=== PATIENT | female | born 1975 | race Caucasian/White ===

== ENCOUNTER → 2018-03-24 15:04 | Outpatient (CLI) | payer OTHER, SELFPAY ==
--- NOTE | 2018-03-24 15:05 | DI.RAD.S_ITS ---
PROCEDURE: XR FOOT LT MIN 3V INDICATIONS: L foot injury TECHNIQUE: 3 views of the foot were acquired. COMPARISON: [facility], , FOOT 2V RIGHT, 02/17/2012, 15:44. FINDINGS: Bones: Minimally displaced mid/distal fifth metatarsal fracture. Soft tissues: No tibiotalar joint effusion. Achilles tendon appears normal. IMPRESSION: Minimally displaced fifth metatarsal fracture. Dictated by: Chrissy Burr M.D. on 03/24/2018 at 15:28 Approved by: Chrissy Burr M.D. on 03/24/2018 at 15:31
== END ==
PROVIDERS: Family Provider Physician Assistant; PCP Physician Assistant; Visit Provider Physician Assistant
DX: S92.352A Displaced fracture of fifth metatarsal bone, left foot, initial encounter for closed fracture (principal)
CPT/HCPCS: 73630

== ENCOUNTER → 2018-07-22 06:57 | Outpatient (CLI) | payer OTHER, SELFPAY ==
[2018-07-22 07:35] LABS: Add Manual Diff / Slide Review NO; Basophils Percent Auto 0.6 % (0-2); Eosinophils Percent Auto 1.7 % (2-4); Hematocrit 38.4 % (36-46); Hemoglobin 13.2 g/dL (12.0-16.0); Mean Corpuscular HGB Conc 34.5 % (30-36); Mean Corpuscular Hemoglobin 31.1 PG (26-34); Mean Corpuscular Volume 90.2 fL (80-100); Monocytes Percent Auto 7.1 % (3-14); Neutrophils Absolute Auto 4100 /uL (3000-5900); Neutrophils Percent Auto 61.6 % (50-75); Platelet Count 330 X10^3/uL (150-400); Red Blood Cell Count 4.26 X10^6/uL (4.0-5.2); White Blood Cell Count 6.7 X10^3/uL (4.5-11.0)
[2018-07-22 07:38] LABS: Appearance Urine UA CLEAR; Bilirubin Urine UA NEGATIVE (NEGATIVE); Color Urine UA YELLOW; Glucose Urine UA NEGATIVE (Normal); Ketones Urine UA NEGATIVE (NEGATIVE); Leukocyte Esterase Urine UA NEGATIVE (NEGATIVE); Nitrite Urine UA NEGATIVE (Negative); Occult Blood Urine UA TRACE-LYSED (Negative); Protein Urine UA NEGATIVE (Negative); Specific Gravity Urine UA 1.015 (1.000-1.035); Urobilinogen Urine UA 0.2 E.U./dL (0.2)
[2018-07-22 07:47] LABS: Alanine Aminotransferase 25 IU/L (9-52); Albumin 4.5 g/dL (3.5-5.0); Albumin Globulin Ratio 1.5 (1.0-2.8); Alkaline Phosphatase 83 U/L (38-126); Aspartate Aminotransferase 24 IU/L (14-36); BUN Creatinine Ratio 22.5 (6-22); Bilirubin Total 0.3 mg/dL (0.2-1.3); Blood Urea Nitrogen 18 mg/dL (7-17); Calcium 9.6 mg/dL (8.4-10.2); Carbon Dioxide 26 mmol/L (22-32); Chloride 104 mmol/L (98-107); Cholesterol 284 mg/dL (140-199); Estimated Glomerular Filt Rate > 60.0 mL/min (>60); Glucose 90 mg/dL (70-100); HDL Cholesterol 58 mg/dL (40-60); HEMOLYSIS < 15 (0-50); LDL Cholesterol Calculated 197 mg/dL (<100); Potassium 4.4 mmol/L (3.4-5.1); Sodium 142 mmol/L (137-145); Total Protein 7.5 g/dL (6.3-8.2); Triglycerides 144 mg/dL (35-150)
[2018-07-22 08:14] LABS: Thyroid Stimulating Hormone 2.92 uIU/mL (0.47-4.68)
== END ==
PROVIDERS: PCP Family Medicine; Visit Provider Family Medicine
DX: Z13.220 Encounter for screening for lipoid disorders (principal); Z13.29 Encounter for screening for other suspected endocrine disorder; Z51.81 Encounter for therapeutic drug level monitoring
CPT/HCPCS: 36415; 80053; 80061; 81003; 84443; 85025

== ENCOUNTER → 2018-10-22 12:26 | Outpatient (CLI) | payer OTHER, SELFPAY ==
[2018-10-22 13:06] LABS: Influenza A and B by PCR Rapid Negative (Negative)
== END ==
PROVIDERS: PCP Family Medicine; Visit Provider Physician Assistant
DX: J11.1 Influenza due to unidentified influenza virus with other respiratory manifestations (principal)
CPT/HCPCS: 87400

== ENCOUNTER → 2018-12-17 06:55 | Outpatient (CLI) | payer OTHER, SELFPAY ==
[2018-12-17 09:20] LABS: Alanine Aminotransferase 31 IU/L (9-52); Albumin 4.3 g/dL (3.5-5.0); Albumin Globulin Ratio 1.5 (1.0-2.8); Alkaline Phosphatase 114 U/L (38-126); Aspartate Aminotransferase 26 IU/L (14-36); Bilirubin Total 0.5 mg/dL (0.2-1.3); Blood Urea Nitrogen 16 mg/dL (7-17); Calcium 9.8 mg/dL (8.4-10.2); Carbon Dioxide 28 mmol/L (22-32); Chloride 102 mmol/L (98-107); Cholesterol 202 mg/dL (140-199); Estimated Glomerular Filt Rate > 60.0 mL/min (>60); Globulin 2.9 g/dL (1.7-4.1); Glucose 94 mg/dL (70-100); HDL Cholesterol 71 mg/dL (40-60); HEMOLYSIS < 15 (0-50); LDL Cholesterol Calculated 97 mg/dL (<100); Sodium 139 mmol/L (137-145); Total Protein 7.2 g/dL (6.3-8.2); Triglycerides 171 mg/dL (35-150)
== END ==
PROVIDERS: PCP Family Medicine; Visit Provider Family Medicine
DX: E78.5 Hyperlipidemia, unspecified (principal)
CPT/HCPCS: 36415; 80053; 80061

== ENCOUNTER → 2019-05-07 16:15 | Outpatient (CLI) | payer OTHER, SELFPAY ==
--- NOTE | 2019-05-07 16:17 | DI.US.S_ITS ---
PROCEDURE: US PELVIC COMPLETE INDICATIONS: PELVIC PAIN TECHNIQUE: Real-time scanning was performed of the pelvic organs, with image documentation. Additional endovaginal scanning was necessary due to incomplete visualization of the adnexal and endometrial structures by transabdominal scanning. COMPARISON: [facility], , PELVIC COMPLETE, 12/14/2015, 8:35. FINDINGS: Transabdominal scanning: Limited scanning through the kidneys shows no hydronephrosis. No pathologic free abdominal or pelvic fluid. Endovaginal scanning: Uterus: Uterus is normal in size at 6.1 x 2.3 x 3.2 cm. The endometrium measures 2.6 mm in combined thickness. Ovaries: Ovaries are normal bilaterally measuring 2.0 x 0.7 x 1.7 cm on the right and 2.5 x 0.9 x 2.0 cm on the left. IMPRESSION: No source for pelvic pain identified sonographically. Dictated by: Kaitlin Bruce M.D. on 05/07/2019 at 17:17 Approved by: Chrissy Burr M.D. on 05/08/2019 at 10:51
== END ==
PROVIDERS: PCP Family Medicine; Visit Provider Family Medicine
DX: R10.2 Pelvic and perineal pain (principal); R10.32 Left lower quadrant pain
CPT/HCPCS: 76830; 76856

== ENCOUNTER → 2019-06-23 16:41 | Outpatient (CLI) | payer OTHER, SELFPAY ==
--- NOTE | 2019-06-23 16:44 | DI.MG.S_ITS ---
BILATERAL DIGITAL SCREENING MAMMOGRAM 3D/2D WITH CAD: 06/23/2019 CLINICAL: Baseline exam. Routine screening. Family history of breast cancer. No prior exams were available for comparison. The tissue of both breasts is heterogeneously dense. This may lower the sensitivity of mammography. Current study was also evaluated with a Computer Aided Detection (CAD) system. No significant masses, calcifications, or other findings are seen in either breast. IMPRESSION: NEGATIVE There is no mammographic evidence of malignancy. A 1 year screening mammogram is recommended. This exam was interpreted at Station ID: [id number]. NOTE: For mammograms, a report in lay terms will be sent to the patient. Approximately 15% of breast malignancies will not be visualized mammographically. In the management of a palpable breast mass, a negative mammogram must not discourage biopsy of a clinically suspicious lesion. Electronically Signed By: James gupta/demetrio:06/24/2019 07:08:40 letter sent: Normal Exam ACR BI-RADS Category 1: Negative [id number]
== END ==
PROVIDERS: Family Provider Family Medicine; PCP Family Medicine; Visit Provider Family Medicine
DX: Z12.31 Encounter for screening mammogram for malignant neoplasm of breast (principal); Z80.3 Family history of malignant neoplasm of breast
CPT/HCPCS: 77063; 77067

== ENCOUNTER → 2019-08-13 16:11 | Outpatient (CLI) | payer OTHER, SELFPAY ==
[2019-08-13 20:22] LABS: Influenza A - CEPHEID Flu A NEGATIVE (NEGATIVE); Influenza B - CEPHEID Flu B NEGATIVE (NEGATIVE)
== END ==
PROVIDERS: Family Provider Family Medicine; PCP Family Medicine; Visit Provider Family Medicine
DX: R68.89 Other general symptoms and signs (principal)
CPT/HCPCS: 87502

== ENCOUNTER → 2019-12-17 09:50 | Outpatient (CLI) | payer OTHER, SELFPAY ==
[2019-12-17 11:04] LABS: Influenza A - CEPHEID Flu A NEGATIVE (NEGATIVE); Influenza B - CEPHEID Flu B NEGATIVE (NEGATIVE)
[2019-12-19 16:07] LABS: COVID19 Sendout Not Detected (Not Detected)
== END ==
PROVIDERS: Family Provider Family Medicine; PCP Family Medicine; Visit Provider Family Medicine
DX: R50.9 Fever, unspecified (principal); R68.89 Other general symptoms and signs
CPT/HCPCS: 87502; 87635

== ENCOUNTER → 2020-02-25 06:58 | Outpatient (CLI) | payer OTHER, SELFPAY ==
[2020-02-25 08:28] LABS: Add Manual Diff / Slide Review NO; Basophils Absolute Auto 0 /uL (0-100); Basophils Percent Auto 0.7 % (0-2); Eosinophils Absolute Auto 100 /uL (0-450); Hematocrit 40.4 % (36-46); Hemoglobin 13.6 g/dL (12.0-16.0); Lymphocytes Absolute Auto 2400 /uL (1100-4500); Lymphocytes Percent Auto 42.1 % (25-40); Mean Corpuscular HGB Conc 33.8 % (30-36); Mean Corpuscular Hemoglobin 31.4 PG (26-34); Mean Corpuscular Volume 93.1 fL (80-100); Monocytes Absolute Auto 500 /uL (0-900); Monocytes Percent Auto 8.5 % (3-14); Neutrophils Absolute Auto 2600 /uL (1500-7000); Neutrophils Percent Auto 46.7 % (50-75); Platelet Count 346 X10^3/uL (150-400); Red Blood Cell Count 4.34 X10^6/uL (4.0-5.2); Red Cell Distribution Width 13.4 % (11.6-14.8); White Blood Cell Count 5.6 X10^3/uL (4.5-11.0)
[2020-02-25 09:28] LABS: Alanine Aminotransferase 22 IU/L (<35); Albumin 4.3 g/dL (3.5-5.0); Albumin Globulin Ratio 1.6 (1.0-2.8); Alkaline Phosphatase 112 U/L (38-126); Aspartate Aminotransferase 26 IU/L (14-36); BUN Creatinine Ratio 19.5 (6-22); Bilirubin Total 0.5 mg/dL (0.2-1.3); Blood Urea Nitrogen 15 mg/dL (7-17); Calcium 9.8 mg/dL (8.4-10.2); Carbon Dioxide 26 mmol/L (22-32); Chloride 105 mmol/L (98-107); Cholesterol 196 mg/dL (140-199); Estimated Glomerular Filt Rate > 60.0 mL/min (>60); Globulin 2.7 g/dL (1.7-4.1); Glucose 97 mg/dL (70-100); HDL Cholesterol 66 mg/dL (40-60); HEMOLYSIS < 15 (0-50); LDL Cholesterol Calculated 107 mg/dL (<100); Potassium 4.8 mmol/L (3.4-5.1); Sodium 138 mmol/L (137-145); Triglycerides 116 mg/dL (35-150)
[2020-02-25 09:53] LABS: Thyroid Stimulating Hormone 2.17 uIU/mL (0.47-4.68)
== END ==
PROVIDERS: Family Medicine; Family Provider Family Medicine; PCP Family Medicine; Referring Provider Family Medicine; Visit Provider Family Medicine
DX: E78.5 Hyperlipidemia, unspecified (principal)
CPT/HCPCS: 36415; 80053; 80061; 84443; 85025

== ENCOUNTER → 2020-07-06 14:19 | Outpatient (CLI) | payer OTHER, SELFPAY ==
[2020-07-06 14:41] LABS: COVID19 -Nasal RAPID Negative (Negative)
== END ==
PROVIDERS: Family Provider Family Medicine; PCP Family Medicine; Visit Provider Student in an Organized Health Care Education/Training Program
DX: Z11.59 Encounter for screening for other viral diseases (principal)
CPT/HCPCS: 87635

== ENCOUNTER → 2020-07-13 13:29 | Outpatient (CLI) | payer OTHER, SELFPAY ==
[2020-07-13 14:21] LABS: COVID19 -Nasal RAPID Negative (Negative)
== END ==
PROVIDERS: Family Provider Family Medicine; PCP Family Medicine; Visit Provider Physician Assistant
DX: Z03.818 Encounter for observation for suspected exposure to other biological agents ruled out (principal)
CPT/HCPCS: 87635

== ENCOUNTER → 2020-11-03 08:03 | Outpatient (CLI) | payer OTHER, SELFPAY ==
--- NOTE | 2020-11-03 08:04 | DI.RAD.S_ITS ---
PROCEDURE: XR LUMBAR SPINE 2-3V INDICATIONS: BACK PAIN TECHNIQUE: 3 views of the lumbar spine were acquired. COMPARISON: [facility], CT, ABDOMEN/PELVIS WITH CONTRAST, 05/23/2017, 2:13. [facility], CT, L-SPINE WITHOUT CONTRAST, 08/25/2016, 13:34. CT, ABDOMEN/PELVIS WITH CONTRAST, 04/09/2016, 14:47. [facility], CR, L-SPINE MINIMUM 4 VIEWS, 12/14/2015, 8:52. FINDINGS: Bones: 5 [id number] vertebrae are present. Mild dextroscoliosis centered at the L3 level. Trace multilevel retrolisthesis. Multilevel disc degeneration, severe at the L5-S1 level. Moderate L4-L5 and L5-S1 facet joint arthropathy. No vertebral body compression fractures. No suspicious bony lesions. Soft tissues: Overlying bowel gas pattern is normal. No suspicious soft tissue calcifications. Right upper quadrant calcifications present. IMPRESSION: 1. Multilevel spondylosis similar to prior examination, most notably with severe disc degeneration at the L5-S1 level. 2. Right upper quadrant calcifications which could be related to gallstones. If indicated, abdominal ultrasound could be performed. Dictated by: Home [facility] Interpreted: Cody Perkins MD on 11/03/2020 at 8:31 Approved by: Cody Perkins M.D. on 11/03/2020 at 17:38
--- NOTE | 2020-11-03 08:04 | DI.MG.S_ITS ---
BILATERAL DIGITAL SCREENING MAMMOGRAM 3D/2D WITH CAD: 11/03/2020 CLINICAL: Routine screening. Family history of breast cancer. Comparison is made to exam dated: 06/23/2019 [facility]. The tissue of both breasts is heterogeneously dense. This may lower the sensitivity of mammography. Current study was also evaluated with a Computer Aided Detection (CAD) system. No significant masses, calcifications, or other findings are seen in either breast. There has been no significant interval change. IMPRESSION: NEGATIVE There is no mammographic evidence of malignancy. A 1 year screening mammogram is recommended. This exam was interpreted at Station ID: [id number]. NOTE: For mammograms, a report in lay terms will be sent to the patient. Approximately 15% of breast malignancies will not be visualized mammographically. In the management of a palpable breast mass, a negative mammogram must not discourage biopsy of a clinically suspicious lesion. Electronically Signed By: Frederick Flower acr/penrad:11/03/2020 08:57:31 letter sent: Normal Exam ACR BI-RADS Category 1: Negative [id number]
--- NOTE | 2020-11-03 08:04 | DI.RAD.S_ITS ---
PROCEDURE: XR CERVICAL SPINE 2V OR 3V INDICATIONS: neck pain TECHNIQUE: 3 view(s) of the cervical spine were acquired. COMPARISON: [facility], CERVICAL SPINE 4 OR 5 VIEWS, 12/14/2015, 8:52. FINDINGS: Bones: No fractures or dislocations to the T1 level. The lateral masses of C1 appear intact on the odontoid view. No suspicious bony lesions. Loss of lordosis which could be related to muscle spasm, rigidity or simply positional. Multilevel disc degeneration, most notably in moderate at the C6-C7 and C7-T1 levels. Mild multilevel mid and lower cervical spine facet joint arthropathy and uncovertebral hypertrophy. Soft tissues: No prevertebral soft tissue swelling. IMPRESSION: Loss of lordosis and multilevel spondylosis. Dictated by: Home [facility] Interpreted: Cody Perkins MD on 11/03/2020 at 8:30 Approved by: Cody Perkins M.D. on 11/03/2020 at 17:38
== END ==
PROVIDERS: Family Provider Family Medicine; PCP Family Medicine; Referring Provider Family Medicine; Visit Provider Family Medicine
DX: Z12.31 Encounter for screening mammogram for malignant neoplasm of breast (principal); Z80.3 Family history of malignant neoplasm of breast; M54.2 Cervicalgia; M54.5 Low back pain; M47.812 Spondylosis without myelopathy or radiculopathy, cervical region; M47.816 Spondylosis without myelopathy or radiculopathy, lumbar region; M47.817 Spondylosis without myelopathy or radiculopathy, lumbosacral region; M51.37 Other intervertebral disc degeneration, lumbosacral region
CPT/HCPCS: 72040; 72110; 77063; 77067

== ENCOUNTER → 2022-11-10 07:35 | Outpatient (CLI) | payer OTHER, SELFPAY ==
[2022-11-10 08:45] LABS: Add Manual Diff / Slide Review NO; Basophils Absolute Auto 0 /uL (0-100); Basophils Percent Auto 0.5 % (0-2); Eosinophils Absolute Auto 200 /uL (0-450); Eosinophils Percent Auto 2.8 % (2-4); Hematocrit 37.8 % (36-46); Hemoglobin 12.9 g/dL (12.0-16.0); Lymphocytes Absolute Auto 1800 /uL (1100-4500); Lymphocytes Percent Auto 30.6 % (25-40); Mean Corpuscular Hemoglobin 31.1 PG (26-34); Mean Corpuscular Volume 91.4 fL (80-100); Monocytes Absolute Auto 400 /uL (0-900); Monocytes Percent Auto 6.6 % (3-14); Neutrophils Absolute Auto 3400 /uL (1500-7000); Neutrophils Percent Auto 59.5 % (50-75); Platelet Count 347 X10^3/uL (150-400); Red Blood Cell Count 4.14 X10^6/uL (4.0-5.2); Red Cell Distribution Width 13.7 % (11.6-14.8); White Blood Cell Count 5.7 X10^3/uL (4.5-11.0)
[2022-11-10 08:55] LABS: Alanine Aminotransferase 28 IU/L (<35); Albumin 4.1 g/dL (3.5-5.0); Albumin Globulin Ratio 1.4 (1.0-2.8); Alkaline Phosphatase 97 U/L (38-126); Aspartate Aminotransferase 27 IU/L (14-36); BUN Creatinine Ratio 21.7 (6-22); Bilirubin Total 0.5 mg/dL (0.2-1.3); Blood Urea Nitrogen 15 mg/dL (7-17); Calcium 9.5 mg/dL (8.4-10.2); Carbon Dioxide 27 mmol/L (22-32); Chloride 103 mmol/L (98-107); Estimated Glomerular Filt Rate > 60 mL/min (>60); Globulin 2.9 g/dL (1.7-4.1); Glucose 102 mg/dL (70-100); HEMOLYSIS < 15 (0-50); Potassium 4.7 mmol/L (3.4-5.1); Sodium 138 mmol/L (137-145)
[2022-11-10 09:24] LABS: Thyroid Stimulating Hormone 2.31 uIU/mL (0.47-4.68)
== END ==
PROVIDERS: Family Provider Family Medicine; PCP Family Medicine; Referring Provider Family Medicine; Visit Provider Family Medicine
DX: R61 Generalized hyperhidrosis (principal)
CPT/HCPCS: 36415; 80053; 84443; 85025

== ENCOUNTER → 2023-02-10 10:29 | Outpatient (CLI) | payer OTHER, SELFPAY ==
--- NOTE | 2023-02-10 10:31 | DI.MRI.S_ITS ---
PROCEDURE: MR LUMBAR SPINE WO CON INDICATIONS: low back pain with radiculopathy TECHNIQUE: Noncontrast sagittal T1 spin echo and T2 fast echo, sagittal STIR, and T2 fast spin echo through the lumbar spine. In cases with scoliosis, additional coronal T2 fast spin echo may be performed. COMPARISON: None. FINDINGS: Image quality: Excellent. Alignment and Curvature: There is trace L5 on S1 anterolisthesis. There is otherwise normal bony alignment. Bone Marrow: Marrow is of normal overall signal. No acute vertebral body compression fractures. Spinal Cord: Conus medullaris terminates at the L1 level. Visualized cord demonstrates normal signal and size. Paraspinous Soft Tissues: No paravertebral masses. T12-L1: Normal appearance. L1-L2: Normal appearance. L2-L3: Normal appearance. L3-L4: Broad-based disc bulge. Moderate facet ligamentum flavum hypertrophy. No canal stenosis. No foraminal stenosis. There is a small focal posterior high-intensity zone. L4-L5: Patient is status post laminectomy. There is epidural lipomatosis and facet and ligamentum flavum hypertrophy. No foraminal stenosis. Mild canal stenosis. L5-S1: Severe disc desiccation and height loss. Trace anterolisthesis. Epidural lipomatosis. No canal stenosis. No foraminal stenosis. IMPRESSION: 1. No foraminal stenosis of the lumbar spine. 2. Epidural lipomatosis is present within the lower lumbar spine with resultant mild canal stenosis at L4-5. No other significant canal stenosis of the lumbar spine. 3. 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 Dictated by: Kaitlin Bruce M.D. on 02/11/2023 at 9:36 Approved by: Kaitlin Bruce M.D. on 02/11/2023 at 9:41
== END ==
PROVIDERS: Family Provider Family Medicine; PCP Family Medicine; Referring Provider Family Medicine; Visit Provider Family Medicine
DX: M48.061 Spinal stenosis, lumbar region without neurogenic claudication; M51.16 Intervertebral disc disorders with radiculopathy, lumbar region
CPT/HCPCS: 72148

== ENCOUNTER → 2024-03-20 06:34 | Outpatient (CLI) | payer SELFPAY ==
[2024-03-20 07:59] LABS: Hemoglobin A1C% w Est Avg Glu 5.6 % (4.0-6.0)
[2024-03-20 08:21] LABS: Alanine Aminotransferase 35 IU/L (<35); Albumin 4.3 g/dL (3.5-5.0); Albumin Globulin Ratio 1.7 (1.0-2.8); Alkaline Phosphatase 101 U/L (38-126); Aspartate Aminotransferase 32 IU/L (14-36); BUN Creatinine Ratio 23.7 (6-22); Bilirubin Total 0.6 mg/dL (0.2-1.3); Blood Urea Nitrogen 18 mg/dL (7-17); Calcium 9.7 mg/dL (8.4-10.2); Carbon Dioxide 26 mmol/L (22-32); Chloride 105 mmol/L (98-107); Cholesterol 227 mg/dL (140-199); Estimated Glomerular Filt Rate > 60 mL/min (>60); Globulin 2.6 g/dL (1.7-4.1); Glucose 105 mg/dL (70-100); HDL Cholesterol 77 mg/dL (40-60); HEMOLYSIS < 15 (0-50); LDL Cholesterol Calculated 125 mg/dL (<100); Potassium 4.8 mmol/L (3.4-5.1); Sodium 138 mmol/L (137-145); Total Protein 6.9 g/dL (6.3-8.2); Triglycerides 126 mg/dL (35-150)
[2024-03-20 08:51] LABS: TSH w/ Reflex to FT4 2.25 uIU/mL (0.47-4.68)
== END ==
PROVIDERS: Family Provider Family Medicine; PCP Family Medicine; Referring Provider Family Medicine; Visit Provider Family Medicine
DX: Z13.29 Encounter for screening for other suspected endocrine disorder (principal); Z13.1 Encounter for screening for diabetes mellitus; E78.5 Hyperlipidemia, unspecified; F41.8 Other specified anxiety disorders
CPT/HCPCS: 36415; 80053; 80061; 83036; 84443

== ENCOUNTER → 2024-09-22 09:00 | Outpatient (CLI) | payer OTHER, SELFPAY ==
--- NOTE | 2024-09-22 09:01 | DI.RAD.S_ITS ---
PROCEDURE: XR CHEST 2V INDICATIONS: cough, fever TECHNIQUE: 2 views of the chest were acquired. COMPARISON: None. FINDINGS: Surgical changes and devices: None. Lungs and pleura: Lungs are clear. No pleural effusions or pneumothorax. Mediastinum: Mediastinal contours are normal. Heart size is normal. Bones and chest wall: No suspicious bony abnormalities. Soft tissues appear unremarkable. IMPRESSION: No acute cardiopulmonary abnormality is seen. Dictated by: Michele Haile M.D. on 09/22/2024 at 15:00 Approved by: Michele Haile M.D. on 09/22/2024 at 15:01
== END ==
PROVIDERS: PCP Family Medicine; Referring Provider Family Medicine; Visit Provider Family Medicine
DX: R05.9 Cough, unspecified (principal)
CPT/HCPCS: 71046

== ENCOUNTER 2024-10-23 07:43 | Emergency (ER) | payer OTHER, SELFPAY ==
[2024-10-23] VITALS (20 sets, daily range): BP systolic 109–177; BP diastolic 59–90; PULSE 62–90; RESP 22; TEMP 36; O2SAT 89–98; BMI 32.8
--- NOTE | 2024-10-23 07:56 | ED.ABDPAIN ---
HPI - Abdominal Pain General Chief Complaint: Abdominal Pain Stated Complaint: vomiting Time Seen by Provider: 10/23/24 07:46 History of Present Illness HPI narrative: Patient is a 49-year-old hyperlipidemia migraine, currently on Ozempic presenting today with nausea vomiting. Reports that she has been on Ozempic for a couple of months constantly nauseous with it will vomit occasionally however she started vomiting around 3:00 a.m. this morning. reports that she can not stop vomiting. she feels like she may have aspirated as well but is not having any sort of shortness of breath. Related Data Home Medications Medication Instructions Recorded Confirmed omeprazole 20 mg capsule,delayed 20 mg PO DAILY 04/04/22 09/22/24 release Previous Rx's Medication Instructions Recorded atorvastatin 20 mg tablet See Rx Instructions .Route 01/10/24 .COMPLEX #90 tabs fluoxetine 20 mg capsule 60 mg (3 x 20 mg) PO DAILY #270 03/30/24 caps methocarbamol 500 mg tablet See Rx Instructions .Route 07/31/24 .COMPLEX #60 tabs benzonatate 100 mg capsule 100 mg PO TID PRN cough #20 caps 09/22/24 metoclopramide HCl 10 mg tablet See Rx Instructions .Route 09/22/24 .COMPLEX #30 tabs propranolol 10 mg tablet 10 mg PO 3XD PRN for anxiety #90 09/22/24 tabs ropinirole 2 mg tablet 4 mg (2 x 2 mg) PO BEDTIME #180 09/22/24 tabs sumatriptan succinate 50 mg tablet 50 mg PO Q2-4H PRN migraine 09/22/24 headache #20 tabs semaglutide (weight loss) 0.25 0.5 mg SUBCUT QWEEK #4 mL 10/22/24 mg/0.5 mL subcutaneous pen injector promethazine 25 mg rectal 25 mg WY Q6H PRN nausea and 10/23/24 suppository vomiting #12 ea Allergies Allergy/AdvReac Type Severity Reaction Status Date / Time amoxapine [AMOXAPINE] Allergy Intermediate Verified 09/22/24 08:25 penicillin G [PENICILLIN G] Allergy Unknown cillin Verified 09/22/24 08:25 family Patient History Medical History Anxiety with depression Diverticulosis of large intestine (~04/2017) Irregular menstrual cycle (2008) Ovarian cyst (2006) ADHD (attention deficit hyperactivity disorder) (2008) Generalized headaches Migraines Restless leg syndrome (2014) Chronic back pain Scoliosis Fractures Surgical History No history of previous surgery Family History Father No problems noted. Mother No problems noted. Social History Smoking Status: Never smoker Smoking Status: Never smoker Exam Initial Vital Signs Initial Vital Signs: Vital Signs Pulse Rate 70 10/23/24 07:49 Blood Pressure 177/89 H 10/23/24 07:49 Pulse Oximetry 98 10/23/24 07:49 GENERAL: Actively dry heaving sitting uprightand in [no acute] distress. HEENT: Head atraumatic,EOMI, pupils reactive, face symmetric, [moist] mucous membranes CARDIOVASCULAR: Regular rate and rhythm without murmurs, rubs or gallops. RESPIRATORY: Breath sounds equal bilaterally, no wheezes rales or rhonchi. ABDOMEN: Soft, nontender. Normoactive bowel sounds all 4 quadrants. No guarding or rebound. EXTREMITIES: Normal range of motion, no clubbing or edema. Neurovascularly intact NEUROLOGICAL: Alert and oriented x4.Normal gait and speech. Cranial nerves II through XII grossly intact. SKIN: Warm, dry, no laceration, no petechiae, no rashes or lesions. Course Orders Ordered: ED Orders 10/23/24 07:57 Complete Blood Count AUTO DIFF Stat Comprehensive Metabolic Panel Stat Lipase Stat 10/23/24 08:23 CT abdomen pelvis w con Stat 10/23/24 09:21 Lactate (Lactic Acid) Stat 10/23/24 11:12 US abdomen limited Stat Discontinued Medications Hydromorphone HCl (Hydromorphone 0.5 Mg Inj) 0.5 mg IV NOW ONE Stop: 10/23/24 07:54 Last Admin: 10/23/24 08:09 Dose: 0.5 mg Documented By: SPF Sodium Chloride (Normal Saline 0.9%) 1,000 mls @ 1,000 mls/hr IV BOLUS ONE Stop: 10/23/24 08:50 Last Infusion: 10/23/24 09:15 Dose: Infused Documented By: Admin: 10/23/24 08:10 Dose: 1,000 mls/hr Documented By: STORMY Lorazepam (Lorazepam 2 Mg/Ml Inj) 0.5 mg IV NOW ONE Stop: 10/23/24 10:02 Last Admin: 10/23/24 10:09 Dose: 0.5 mg Documented By: STORMY Metoclopramide HCl (Metoclopramide 10 Mg/2 Ml Inj) 10 mg IV NOW ONE Stop: 10/23/24 09:15 Last Admin: 10/23/24 09:26 Dose: 10 mg Documented By: STORMY Ondansetron HCl (Ondansetron 4 Mg/2 Ml Inj) 4 mg IV NOW ONE Stop: 10/23/24 07:52 Last Admin: 10/23/24 08:09 Dose: 4 mg Documented By: STORMY Pantoprazole Sodium (Pantoprazole 40 Mg Vial) 40 mg IV NOW ONE Stop: 10/23/24 07:52 Last Admin: 10/23/24 08:10 Dose: 40 mg Documented By: STORMY Vital Signs Vital signs: Vital Signs - 8 hr 10/23/24 07:49 10/23/24 07:49 10/23/24 07:50 Temperature Pulse Rate 70 70 Respiratory Rate 22 Blood Pressure 177/89 H 177/89 H Pulse Oximetry 98 96 Oxygen Delivery Method Room Air Oxygen Flow Rate 10/23/24 07:52 10/23/24 07:52 10/23/24 08:01 Temperature Pulse Rate 68 89 Respiratory Rate Blood Pressure 170/81 H Pulse Oximetry 98 98 Oxygen Delivery Method Room Air Oxygen Flow Rate 10/23/24 08:30 10/23/24 08:30 10/23/24 09:00 Temperature Pulse Rate 63 69 Respiratory Rate Blood Pressure 155/81 H Pulse Oximetry 96 94 Oxygen Delivery Method Oxygen Flow Rate 10/23/24 09:01 10/23/24 09:01 10/23/24 09:23 Temperature 96.8 F L Pulse Rate 64 Respiratory Rate Blood Pressure 133/90 Pulse Oximetry 89 L Oxygen Delivery Method Oxygen Flow Rate 10/23/24 09:30 10/23/24 09:30 10/23/24 09:49 Temperature Pulse Rate 62 71 Respiratory Rate Blood Pressure 137/68 Pulse Oximetry 93 93 Oxygen Delivery Method Oxygen Flow Rate 10/23/24 09:49 10/23/24 10:00 10/23/24 10:00 Temperature Pulse Rate 77 Respiratory Rate Blood Pressure 130/80 118/68 Pulse Oximetry 93 Oxygen Delivery Method Oxygen Flow Rate 10/23/24 10:30 10/23/24 10:30 10/23/24 11:00 Temperature Pulse Rate 77 88 Respiratory Rate Blood Pressure 123/68 Pulse Oximetry 92 89 L Oxygen Delivery Method Room Air Room Air Oxygen Flow Rate 10/23/24 11:00 10/23/24 11:09 10/23/24 11:30 Temperature Pulse Rate Respiratory Rate Blood Pressure 109/64 119/60 Pulse Oximetry 90 L Oxygen Delivery Method Nasal Cannula Oxygen Flow Rate 1 10/23/24 11:30 10/23/24 12:00 10/23/24 12:00 Temperature Pulse Rate 86 90 Respiratory Rate Blood Pressure 116/62 Pulse Oximetry 93 92 Oxygen Delivery Method Nasal Cannula Oxygen Flow Rate 1 10/23/24 12:28 10/23/24 12:28 10/23/24 12:30 Temperature Pulse Rate 76 Respiratory Rate Blood Pressure 113/59 L 115/63 Pulse Oximetry 96 Oxygen Delivery Method Oxygen Flow Rate 10/23/24 12:30 10/23/24 13:00 10/23/24 13:00 Temperature Pulse Rate 81 83 Respiratory Rate Blood Pressure 121/70 Pulse Oximetry 94 91 Oxygen Delivery Method Oxygen Flow Rate 10/23/24 13:30 10/23/24 13:30 Temperature Pulse Rate 83 Respiratory Rate Blood Pressure 119/70 Pulse Oximetry 92 Oxygen Delivery Method Oxygen Flow Rate MDM - Abdominal Pain Lab Data 10/23/24 07:57 10/23/24 07:57 Labs: Lab Results 10/23/24 10/23/24 Range/Units 07:57 09:21 WBC 7.9 (4.5-11.0) X10^3/uL RBC 4.72 (4.0-5.2) X10^6/uL Hgb 14.5 (12.0-16.0) g/dL Hct 42.8 (36-46) % MCV 90.5 (80-100) fL MCH 30.8 (26-34) PG MCHC 34.0 (30-36) % RDW 13.6 (11.6-14.8) % Plt Count 351 (150-400) X10^3/uL Neut % (Auto) 64.8 (50-75) % Lymph % (Auto) 25.3 (25-40) % Kimball % (Auto) 6.7 (3-14) % Eos % (Auto) 2.2 (2-4) % Baso % (Auto) 1.0 (0-2) % Neut # (Auto) 5100 (0130-0174) /uL Lymph # (Auto) 2000 (0104-8111) /uL Kimball # (Auto) 500 (0-900) /uL Eos # (Auto) 200 (0-450) /uL Baso # (Auto) 100 (0-100) /uL Sodium 138 (137-145) mmol/L Potassium 3.9 (3.4-5.1) mmol/L Chloride 107 (98-107) mmol/L Carbon Dioxide 17 L (22-32) mmol/L BUN 10 (7-17) mg/dL Creatinine 0.71 (0.52-1.04) mg/dL Estimated GFR > 60 (>60) mL/min BUN/Creatinine Ratio 14.1 (6-22) Glucose 157 H (70-100) mg/dL Lactate 1.9 (0.7-2.1) mmol/L Calcium 10.0 (8.4-10.2) mg/dL Total Bilirubin 0.6 (0.2-1.3) mg/dL AST 40 H (14-36) IU/L ALT 33 (<35) IU/L Alkaline Phosphatase 114 (38-126) U/L Total Protein 8.1 (6.3-8.2) g/dL Albumin 4.7 (3.5-5.0) g/dL Globulin 3.4 (1.7-4.1) g/dL Albumin/Globulin Ratio 1.4 (1.0-2.8) Lipase 138 (23-300) U/L Imaging Data US - abdomen: Radiologist's Impression: PROCEDURE: US ABDOMEN LIMITED INDICATIONS: CHOLELITHIASIS TECHNIQUE: Real-time scanning was performed of the abdominal and retroperitoneal organs, with image documentation. COMPARISON: [facility], CT, CT ABDOMEN PELVIS W CON, 10/23/2024, 9:45. FINDINGS: Liver: Increased echogenicity is consistent with diffuse hepatic steatosis. Normal size. Gallbladder: Multiple gallstones are present. There is no gallbladder wall thickening or sonographic Ferraro sign. Biliary ducts: Intrahepatic bile ducts are non-dilated. Extrahepatic bile duct caliber measures 3.2 mm. Normal is 6-7 mm or less in diameter, or 10 mm or less post-cholecystectomy. Pancreas: Not well seen secondary to overlying bowel gas. Miscellaneous: No free abdominal fluid. IMPRESSION: 1. Diffuse hepatic steatosis. 2. Cholelithiasis. No evidence of acute cholecystitis. Dictated by: Mark Faustin M.D. on 10/23/2024 at 13:28 CT scan - abdomen/pelvis: Radiologist's Impression: PROCEDURE: CT ABDOMEN PELVIS W CON INDICATIONS: persistant vomiting TECHNIQUE: After the administration of intravenous contrast, axial sections acquired from the lung bases to the pubic symphysis. Coronal and sagittal reformats were performed. For radiation dose reduction, the following was used: automated exposure control, adjustment of mA and/or kV according to patient size. COMPARISON: None. FINDINGS: Image quality: Diagnostic. Lower Chest: Small hiatal hernia. No acute infiltrate. Normal heart size. ABDOMEN: Liver: No solid mass. Gallbladder: Numerous gallstones. No gallbladder wall thickening. Biliary ducts: No biliary dilation. Pancreas: No ductal dilation. Spleen: Size is within normal limits. Adrenal Glands: No adrenal nodules. Kidneys and Ureters: No hydronephrosis. No solid mass. No complex renal cystic lesion which requires follow up. Stomach and Bowel: Normal colonic caliber, without significant wall thickening. There is diffuse fatty infiltration of the colonic wall, from the level of the proximal ascending colon in a contiguous fashion through the sigmoid colon. Reference patient intake representative axial image 60 of series 2 which shows fatty infiltration of the wall of the transverse colon. This is consistent with chronic inflammation. No acute findings are identified currently. There is mild diverticulosis without evidence of acute diverticulitis. A probable normal appendix is noted. Peritoneum: No abnormal intraperitoneal fluid. No free air. Ventral Wall: No significant ventral hernia. Abdominal Nodes: No retroperitoneal or mesenteric adenopathy by size criteria. Vessels: Aorta and inferior vena cava are normal in size. PELVIS: Pelvic Organs: Unremarkable. Bladder: No bladder wall thickening, accounting for underdistention. Pelvic Nodes: No enlarged lymph nodes. Miscellaneous: No inguinal hernias are seen. Bones: No aggressive osseous abnormality. IMPRESSION: 1. No acute abdominal process identified. 2. Cholelithiasis. 3. Extensive fatty replacement of the colonic wall from the proximal ascending colon through the sigmoid consistent with sequelae of chronic inflammation. 4. Diverticulosis without evidence of acute diverticulitis. 5. Small hiatal hernia. Dictated by: Mark Faustin M.D. on 10/23/2024 at 10:01 [facility] Narrative Medical decision making narrative: Patient is a healthy 49-year-old female presents today with sudden onset nausea vomiting abdominal pain. She was quite uncomfortable persistently dry heaving. She was given multiple anti nausea medications including Zofran Reglan Protonix ultimately Ativan did help her. She was given pain medications Dilaudid as well. Blood work reviewed CBC no leukocytosis or anemia CMP she was noted to have low bicarb of 17 otherwise no significant electrolyte abnormalities. Creatinine 0.71 Lactate 1.9 Liver enzymes bilirubin within normal limits lipase 138 Imaging reviewed ultrasound confirms cholelithiasis without cholecystitis CT does not show any obstruction but does show cholelithiasis Patient awake alert sitting up now able to tolerate fluids No evidence of pancreatitis from GLP1 inhibitor. She is found to have cholelithiasis without evidence of cholecystitis and blood work is overall reassuring. Possibly combination of cholelithiasis and GLP 1 nausea. However blood work surprisingly reassuring. Tolerating fluids at this time no need for further workup recommended outpatient surgery follow-up Discharge Plan Departure Patient Disposition: Home Clinical Impression: Cholelithiasis Instructions: Gallstones Activity Restrictions/Additional Instructions: *You have been diagnosed with cholelithiasis *What to do: At this time probably combination of Ozempic and gallstones causing her nausea. You will ultimately need your gallbladder removed but not emergently today. *Continue to take medications as directed Zofran 4 mg every 8 hours if needed for nausea or vomiting Phenergan suppository every 6 hours only if Zofran is not working *Follow up with your primary care provider in 2-3 days or call [phone] Call and follow-up with [facility] *Return to ER if you should have increasing abdominal pain fever vomiting or any new, worsening or concerning symptoms Prescriptions: New promethazine 25 mg suppository 25 mg WY Q6H PRN (Reason: nausea and vomiting) Qty: 12 0RF No Action omeprazole 20 mg capsule,delayed release(DR/EC) 20 mg PO DAILY sumatriptan succinate 50 mg tablet 50 mg PO Q2-4H PRN (Reason: migraine headache) Qty: 20 0RF ropinirole 2 mg tablet 4 mg PO BEDTIME Qty: 180 3RF propranolol 10 mg tablet 10 mg PO 3XD PRN (Reason: for anxiety) Qty: 90 3RF metoclopramide HCl 10 mg tablet See Rx Instructions .ROUTE .COMPLEX Qty: 30 3RF Dose Instruction: take 1 tablet by mouth every 6 hours if needed for nausea and vomiting Rx Instructions: take 1 tablet by mouth every 6 hours if needed for nausea and vomiting benzonatate 100 mg capsule 100 mg PO TID PRN (Reason: cough) Qty: 20 0RF atorvastatin 20 mg tablet See Rx Instructions .ROUTE .COMPLEX Qty: 90 3RF Dose Instruction: take 1 tablet by mouth once daily Rx Instructions: take 1 tablet by mouth once daily fluoxetine 20 mg capsule 60 mg PO DAILY Qty: 270 3RF methocarbamol 500 mg tablet See Rx Instructions .ROUTE .COMPLEX Qty: 60 1RF Dose Instruction: take 1 tablet by mouth four times a day if needed back pain Rx Instructions: take 1 tablet by mouth four times a day if needed back pain semaglutide (weight loss) 0.25 mg/0.5 mL pen injector 0.5 mg SUBCUT QWEEK Qty: 4 0RF Rx Instructions: administer weeks 5 through 8 of therapy Referrals: Susanna Rodarte MD [Primary Care Provider] - Stand Alone Forms: Patient Portal/API/Survey
[2024-10-23] MEDS: ONDANSETRON 4 MG/2 ML INJ IV (08:09)
[2024-10-23] MEDS: HYDROMORPHONE 0.5 MG INJ IV (08:09)
[2024-10-23] MEDS: SODIUM CHLORIDE 0.9% 1,000 ML 1000 ML IV (08:10)
[2024-10-23] MEDS: PANTOPRAZOLE 40 MG VIAL IV (08:10)
[2024-10-23 08:16] LABS: Alanine Aminotransferase 33 IU/L (<35); Albumin 4.7 g/dL (3.5-5.0); Albumin Globulin Ratio 1.4 (1.0-2.8); Alkaline Phosphatase 114 U/L (38-126); Aspartate Aminotransferase 40 IU/L (14-36); BUN Creatinine Ratio 14.1 (6-22); Bilirubin Total 0.6 mg/dL (0.2-1.3); Blood Urea Nitrogen 10 mg/dL (7-17); Carbon Dioxide 17 mmol/L (22-32); Chloride 107 mmol/L (98-107); Estimated Glomerular Filt Rate > 60 mL/min (>60); Globulin 3.4 g/dL (1.7-4.1); Glucose 157 mg/dL (70-100); HEMOLYSIS 26 (0-50); Lipase 138 U/L (23-300); Potassium 3.9 mmol/L (3.4-5.1); Sodium 138 mmol/L (137-145); Total Protein 8.1 g/dL (6.3-8.2)
[2024-10-23 08:18] LABS: Add Manual Diff / Slide Review NO; Basophils Absolute Auto 100 /uL (0-100); Eosinophils Absolute Auto 200 /uL (0-450); Eosinophils Percent Auto 2.2 % (2-4); Hematocrit 42.8 % (36-46); Hemoglobin 14.5 g/dL (12.0-16.0); Lymphocytes Absolute Auto 2000 /uL (1100-4500); Lymphocytes Percent Auto 25.3 % (25-40); Mean Corpuscular Hemoglobin 30.8 PG (26-34); Mean Corpuscular Volume 90.5 fL (80-100); Monocytes Absolute Auto 500 /uL (0-900); Monocytes Percent Auto 6.7 % (3-14); Neutrophils Absolute Auto 5100 /uL (1500-7000); Neutrophils Percent Auto 64.8 % (50-75); Platelet Count 351 X10^3/uL (150-400); Red Blood Cell Count 4.72 X10^6/uL (4.0-5.2); Red Cell Distribution Width 13.6 % (11.6-14.8); White Blood Cell Count 7.9 X10^3/uL (4.5-11.0)
--- NOTE | 2024-10-23 08:23 | DI.CT.S_ITS ---
PROCEDURE: CT ABDOMEN PELVIS W CON INDICATIONS: persistant vomiting TECHNIQUE: After the administration of intravenous contrast, axial sections acquired from the lung bases to the pubic symphysis. Coronal and sagittal reformats were performed. For radiation dose reduction, the following was used: automated exposure control, adjustment of mA and/or kV according to patient size. COMPARISON: None. FINDINGS: Image quality: Diagnostic. Lower Chest: Small hiatal hernia. No acute infiltrate. Normal heart size. ABDOMEN: Liver: No solid mass. Gallbladder: Numerous gallstones. No gallbladder wall thickening. Biliary ducts: No biliary dilation. Pancreas: No ductal dilation. Spleen: Size is within normal limits. Adrenal Glands: No adrenal nodules. Kidneys and Ureters: No hydronephrosis. No solid mass. No complex renal cystic lesion which requires follow up. Stomach and Bowel: Normal colonic caliber, without significant wall thickening. There is diffuse fatty infiltration of the colonic wall, from the level of the proximal ascending colon in a contiguous fashion through the sigmoid colon. Reference direct sales representative axial image 60 of series 2 which shows fatty infiltration of the wall of the transverse colon. This is consistent with chronic inflammation. No acute findings are identified currently. There is mild diverticulosis without evidence of acute diverticulitis. A probable normal appendix is noted. Peritoneum: No abnormal intraperitoneal fluid. No free air. Ventral Wall: No significant ventral hernia. Abdominal Nodes: No retroperitoneal or mesenteric adenopathy by size criteria. Vessels: Aorta and inferior vena cava are normal in size. PELVIS: Pelvic Organs: Unremarkable. Bladder: No bladder wall thickening, accounting for underdistention. Pelvic Nodes: No enlarged lymph nodes. Miscellaneous: No inguinal hernias are seen. Bones: No aggressive osseous abnormality. IMPRESSION: 1. No acute abdominal process identified. 2. Cholelithiasis. 3. Extensive fatty replacement of the colonic wall from the proximal ascending colon through the sigmoid consistent with sequelae of chronic inflammation. 4. Diverticulosis without evidence of acute diverticulitis. 5. Small hiatal hernia. Dictated by: Mark Faustin M.D. on 10/23/2024 at 10:01 Approved by: Mark Faustin M.D. on 10/23/2024 at 10:06
[2024-10-23] MEDS: METOCLOPRAMIDE 10 MG/2 ML INJ IV (09:26)
[2024-10-23 10:04] LABS: Lactate (Lactic Acid) 1.9 mmol/L (0.7-2.1)
[2024-10-23] MEDS: LORazepam 2 MG/ML INJ 0.5 MG IV (10:09)
--- NOTE | 2024-10-23 11:12 | DI.US.S_ITS ---
PROCEDURE: US ABDOMEN LIMITED INDICATIONS: CHOLELITHIASIS TECHNIQUE: Real-time scanning was performed of the abdominal and retroperitoneal organs, with image documentation. COMPARISON: [facility], CT, CT ABDOMEN PELVIS W CON, 10/23/2024, 9:45. FINDINGS: Liver: Increased echogenicity is consistent with diffuse hepatic steatosis. Normal size. Gallbladder: Multiple gallstones are present. There is no gallbladder wall thickening or sonographic Ferraro sign. Biliary ducts: Intrahepatic bile ducts are non-dilated. Extrahepatic bile duct caliber measures 3.2 mm. Normal is 6-7 mm or less in diameter, or 10 mm or less post-cholecystectomy. Pancreas: Not well seen secondary to overlying bowel gas. Miscellaneous: No free abdominal fluid. IMPRESSION: 1. Diffuse hepatic steatosis. 2. Cholelithiasis. No evidence of acute cholecystitis. Dictated by: Mark Faustin M.D. on 10/23/2024 at 13:28 Approved by: Mark Faustin M.D. on 10/23/2024 at 13:30
== END 2024-10-23 13:40 | disposition home or self-care (01) ==
PROVIDERS: Emergency Provider Emergency Medicine; PCP Family Medicine
DX: K80.20 Calculus of gallbladder without cholecystitis without obstruction (principal); Z79.85 Long-term (current) use of injectable non-insulin antidiabetic drugs
CPT/HCPCS: 36415; 74177; 76705; 80053; 83605; 83690; 85025; 96361; 96374; 96375; 99284; J1171; J2060; J2405; J2470; J2765; Q9967

== ENCOUNTER 2024-12-12 12:17 | Observation (INO) | payer OTHER, SELFPAY ==
[2024-12-12] VITALS (16 sets, daily range): BP systolic 103–148; BP diastolic 59–79; PULSE 69–92; RESP 14–30; TEMP 35.9–36.4; O2SAT 85–99; BMI 29.5; BMI 31.6
--- NOTE | 2024-12-12 12:20 | EKG_ITS ---
[place] [id number] [place] [address] Test Date: 2024-12-12 Pat Name: Jackelyn Arteaga Department: [facility] Room: Gender: Female Side Sawyer: STEFANI : 1975 Requested By: Order Number: [id number] Reading MD: Reinaldo Duke Measurements Intervals Eliot Rate: 80 P: 46 DC: 164 QRS: 67 QRSD: 98 T: 63 QT: 394 QTc: 454 Interpretive Statements Normal sinus rhythm Nonspecific ST abnormality Electronically Signed On 12-12-2024 13:59:39 PDT by Reinaldo Duke
[2024-12-12] MEDS: ONDANSETRON 4 MG/2 ML INJ IV (12:28)
--- NOTE | 2024-12-12 12:40 | DI.US.S_ITS ---
PROCEDURE: US ABDOMEN LIMITED INDICATIONS: RUQ, known gallstones TECHNIQUE: Real-time scanning was performed of the abdominal and retroperitoneal organs, with image documentation. COMPARISON: Merged With [facility], CT, CT ABDOMEN PELVIS W CON, 10/23/2024, 9:45. Merged With [facility], US, US ABDOMEN LIMITED, 10/23/2024, 12:08. FINDINGS: Liver: Liver is normal in size and homogeneous in echotexture. Gallbladder: Non mobile foci echogenicity are identified. 7 mm echogenic focus is lodged in the gallbladder neck. Wall thickness is normal measuring 1.2 mm. No sonographic Ferraro sign. Biliary ducts: Intrahepatic bile ducts are non-dilated. Extrahepatic bile duct caliber measures 3.6 mm. Normal is 6-7 mm or less in diameter, or 10 mm or less post-cholecystectomy. Miscellaneous: No free abdominal fluid. IMPRESSION: Cholelithiasis without imaging appearance of cholecystitis. Dictated by: Chrissy Burr M.D. on 12/12/2024 at 14:10 Approved by: Chrissy Burr M.D. on 12/12/2024 at 14:12
[2024-12-12] MEDS: KETOROLAC 30 MG/ML VIAL 15 MG IV ×3 (12:42→21:55)
[2024-12-12 12:54] LABS: Add Manual Diff / Slide Review NO; Basophils Absolute Auto 100 /uL (0-100); Basophils Percent Auto 1.6 % (0-2); Eosinophils Absolute Auto 300 /uL (0-450); Eosinophils Percent Auto 3.2 % (2-4); Hematocrit 41.9 % (36-46); Hemoglobin 14.2 g/dL (12.0-16.0); Lymphocytes Absolute Auto 2400 /uL (1100-4500); Lymphocytes Percent Auto 28.1 % (25-40); Mean Corpuscular Hemoglobin 30.7 PG (26-34); Mean Corpuscular Volume 90.4 fL (80-100); Monocytes Absolute Auto 600 /uL (0-900); Monocytes Percent Auto 6.7 % (3-14); Neutrophils Absolute Auto 5200 /uL (1500-7000); Neutrophils Percent Auto 60.4 % (50-75); Platelet Count 328 X10^3/uL (150-400); Red Blood Cell Count 4.63 X10^6/uL (4.0-5.2); Red Cell Distribution Width 13.7 % (11.6-14.8); White Blood Cell Count 8.6 X10^3/uL (4.5-11.0)
[2024-12-12 13:11] LABS: Alanine Aminotransferase 39 IU/L (<35); Albumin Globulin Ratio 1.5 (1.0-2.8); Alkaline Phosphatase 88 U/L (38-126); BUN Creatinine Ratio 15.8 (6-22); Bilirubin Total 1.4 mg/dL (0.2-1.3); Blood Urea Nitrogen 12 mg/dL (7-17); Carbon Dioxide 21 mmol/L (22-32); Chloride 103 mmol/L (98-107); Estimated Glomerular Filt Rate > 60 mL/min (>60); Globulin 3.4 g/dL (1.7-4.1); Glucose 124 mg/dL (70-99); Lipase 105 U/L (23-300); Sodium 137 mmol/L (137-145); Total Protein 8.4 g/dL (6.3-8.2)
[2024-12-12 13:14] LABS: Aspartate Aminotransferase 58 IU/L (14-36); HEMOLYSIS 166 (0-50); Potassium 4.9 mmol/L (3.4-5.1)
[2024-12-12] MEDS: HYDROMORPHONE 1 MG INJ IV (13:18)
[2024-12-12] MEDS: LORazepam 2 MG/ML INJ 0.5 MG IV (13:25)
--- NOTE | 2024-12-12 15:08 | ED.ABDPAIN ---
HPI - Abdominal Pain General Chief Complaint: Abdominal Pain Stated Complaint: NV poss gallstones Time Seen by Provider: 12/12/24 13:16 Source: patient and family Mode of arrival: Wheelchair Limitations: no limitations History of Present Illness HPI narrative: 49-year-old female history of dyslipidemia, GERD who presents with complaint of right upper abdominal pain nausea and vomiting was seen here a month ago with gallstones and was waiting to follow up with surgeon. She was had worsening pain with the past 3 days in terms of pain. Patient states she has been having nausea fairly frequently but has been tolerable at home. She was had some persistent pain and diarrhea. She states got much worse over the past 3 days and has not been able to keep anything down. She describes fevers at home up to 100 F by thermometer. She was noticed a little bit of urinary urgency. Patient states has continued feel very similar to her symptoms when she was here a month ago and diagnosed with gallstones. Patient does not take any aspirin or thinners. Take states she takes atorvastatin, methocarbamol, omeprazole, propranolol and semaglutide. Describes allergy to penicillin had amoxicillin she was describes as her throat closing. Former smoker, occasional alcohol, no recreational drugs. Dr. Rodarte is her primary care physician. Related Data Home Medications Medication Instructions Recorded Confirmed omeprazole 20 mg capsule,delayed 20 mg PO DAILY 04/04/22 12/12/24 release Previous Rx's Medication Instructions Recorded atorvastatin 20 mg tablet See Rx Instructions .Route 01/10/24 .COMPLEX #90 tabs methocarbamol 500 mg tablet See Rx Instructions .Route 07/31/24 .COMPLEX #60 tabs metoclopramide HCl 10 mg tablet See Rx Instructions .Route 09/22/24 .COMPLEX #30 tabs propranolol 10 mg tablet 10 mg PO 3XD PRN for anxiety #90 09/22/24 tabs ropinirole 2 mg tablet 4 mg (2 x 2 mg) PO BEDTIME #180 09/22/24 tabs promethazine 25 mg rectal 25 mg NE Q6H PRN nausea and 10/23/24 suppository vomiting #12 ea fluoxetine 20 mg capsule 60 mg (3 x 20 mg) PO DAILY #270 12/03/24 caps semaglutide (weight loss) 0.25 0.5 mg SUBCUT QWEEK #4 mL 12/03/24 mg/0.5 mL subcutaneous pen injector sumatriptan succinate 50 mg tablet 50 mg PO Q2-4H PRN migraine 12/03/24 headache #20 tabs Allergies Allergy/AdvReac Type Severity Reaction Status Date / Time amoxapine [AMOXAPINE] Allergy Intermediate Verified 12/12/24 12:20 penicillin G [PENICILLIN G] Allergy Unknown cillin Verified 12/12/24 12:20 family Review of Systems Review of Systems ROS Unobtainable: All systems reviewed & are unremarkable except as noted in HPI and below Patient History Medical History Anxiety with depression Diverticulosis of large intestine (~04/2017) Irregular menstrual cycle (2007) Ovarian cyst (2005) ADHD (attention deficit hyperactivity disorder) (2007) Generalized headaches Migraines Restless leg syndrome (2013) Chronic back pain Scoliosis Fractures Surgical History No history of previous surgery Family History Father No problems noted. Mother No problems noted. Social History household members: spouse and children Smoking Status: Former smoker alcohol intake: current Smoking Status: Former smoker Alcohol type: beer Exam Narrative Exam Narrative: GENERAL: Alert and oriented x three, female in moderate distress HEENT: Head normocephalic, atraumatic, EOMI, pupils reactive, face symmetric, moist mucous membranes NECK: Supple, full range of motion CARDIOVASCULAR: Regular rate and rhythm without murmurs, rubs or gallops. RESPIRATORY: Breath sounds equal bilaterally, no wheezes rales or rhonchi. ABDOMEN: Soft, patient has generalized abdominal pain but greatest like right upper quadrant and epigastric. Normoactive bowel sounds all 4 quadrants. No guarding or rebound, rigidity, no mass, no pulsatile mass or bruit. : No CVA tenderness bilaterally EXTREMITIES: Normal range of motion, no clubbing or edema. Neurovascularly intact NEUROLOGICAL: Cranial nerves II through XII grossly intact. Moving all extremities SKIN: Warm, dry, no petechiae, no rashes or lesions. Initial Vital Signs Initial Vital Signs: Vital Signs Pulse Rate 75 12/12/24 12:31 Blood Pressure 142/68 H 12/12/24 12:31 Pulse Oximetry 99 12/12/24 12:31 Course Orders Ordered: ED Orders 12/12/24 12:20 EKG-12 Lead Stat 12/12/24 12:28 Complete Blood Count AUTO DIFF Stat Comprehensive Metabolic Panel Stat Lipase Stat 12/12/24 12:40 US abdomen limited Stat Sodium Chloride (Normal Saline 0.9%) 1,000 mls @ 125 mls/hr IV CONT ZACH Last Admin: 12/12/24 16:05 Dose: 125 mls/hr Documented By: Ketorolac Tromethamine (Ketorolac 30 Mg/Ml Vial) 15 mg IV Q6H ZACH Stop: 12/17/24 15:48 Last Admin: 12/12/24 16:05 Dose: 15 mg Documented By: Lorazepam (Lorazepam 2 Mg/Ml Inj) 0.5 mg IV Q6HR PRN PRN Reason: Anxiety Morphine Sulfate (Morphine 4 Mg/Ml Inj) 4 mg IV Q4HR PRN PRN Reason: pain Ondansetron HCl (Ondansetron 4 Mg/2 Ml Inj) 4 mg IV NOW PRN PRN Reason: Nausea And Vomiting Last Admin: 12/12/24 12:28 Dose: 4 mg Documented By: Ondansetron HCl (Ondansetron 4 Mg Odt) 4 mg PO NOW PRN PRN Reason: Nausea And Vomiting Discontinued Medications Hydromorphone HCl (Hydromorphone 1 Mg Inj) 1 mg IV NOW ONE Stop: 12/12/24 13:17 Last Admin: 12/12/24 13:18 Dose: 1 mg Documented By: SB Ketorolac Tromethamine (Ketorolac 30 Mg/Ml Vial) 15 mg IV NOW ONE Stop: 12/12/24 12:41 Last Admin: 12/12/24 12:42 Dose: 15 mg Documented By: Lorazepam (Lorazepam 2 Mg/Ml Inj) 0.5 mg IV NOW ONE Stop: 12/12/24 13:23 Last Admin: 12/12/24 13:25 Dose: 0.5 mg Documented By: SB Metoclopramide HCl (Metoclopramide 10 Mg/2 Ml Inj) 10 mg IV NOW ONE Stop: 12/12/24 15:53 Last Admin: 12/12/24 16:05 Dose: 10 mg Documented By: Vital Signs Vital signs: Vital Signs - 8 hr 12/12/24 12:31 12/12/24 12:32 12/12/24 13:00 Temperature 97.5 F L Pulse Rate 75 71 71 Respiratory Rate 20 20 Blood Pressure 142/68 H 142/68 H 146/79 H Pulse Oximetry 99 97 92 Oxygen Delivery Method Room Air Oxygen Flow Rate 12/12/24 13:29 12/12/24 13:30 12/12/24 13:30 Temperature Pulse Rate 69 Respiratory Rate 14 30 H Blood Pressure 148/77 H Pulse Oximetry 85 L 92 Oxygen Delivery Method Room Air Nasal Cannula Oxygen Flow Rate 2 12/12/24 13:50 12/12/24 13:51 12/12/24 14:00 Temperature Pulse Rate 78 Respiratory Rate 16 Blood Pressure 114/59 L Pulse Oximetry 89 L 91 95 Oxygen Delivery Method Nasal Cannula Nasal Cannula Nasal Cannula Oxygen Flow Rate 2 3 3 12/12/24 14:30 12/12/24 14:30 12/12/24 15:00 Temperature Pulse Rate 92 H Respiratory Rate 20 Blood Pressure 112/71 112/71 109/59 L Pulse Oximetry 95 Oxygen Delivery Method Nasal Cannula Oxygen Flow Rate 3 12/12/24 15:00 12/12/24 15:19 12/12/24 15:30 Temperature Pulse Rate 80 80 Respiratory Rate 17 17 Blood Pressure Pulse Oximetry 95 91 Oxygen Delivery Method Nasal Cannula Oxygen Flow Rate 1 12/12/24 15:30 Temperature Pulse Rate Respiratory Rate Blood Pressure 115/59 L Pulse Oximetry Oxygen Delivery Method Oxygen Flow Rate MDM - Abdominal Pain Lab Data 12/12/24 12:28 12/12/24 12:28 Labs: Lab Results 12/12/24 Range/Units 12:28 WBC 8.6 (4.5-11.0) X10^3/uL RBC 4.63 (4.0-5.2) X10^6/uL Hgb 14.2 (12.0-16.0) g/dL Hct 41.9 (36-46) % MCV 90.4 (80-100) fL MCH 30.7 (26-34) PG MCHC 34.0 (30-36) % RDW 13.7 (11.6-14.8) % Plt Count 328 (150-400) X10^3/uL Neut % (Auto) 60.4 (50-75) % Lymph % (Auto) 28.1 (25-40) % [place] % (Auto) 6.7 (3-14) % Eos % (Auto) 3.2 (2-4) % Baso % (Auto) 1.6 (0-2) % Neut # (Auto) 5200 (5759-2552) /uL Lymph # (Auto) 2400 (7356-1107) /uL [place] # (Auto) 600 (0-900) /uL Eos # (Auto) 300 (0-450) /uL Baso # (Auto) 100 (0-100) /uL Sodium 137 (137-145) mmol/L Potassium 4.9 (3.4-5.1) mmol/L Chloride 103 (98-107) mmol/L Carbon Dioxide 21 L (22-32) mmol/L BUN 12 (7-17) mg/dL Creatinine 0.76 (0.52-1.04) mg/dL Estimated GFR > 60 (>60) mL/min BUN/Creatinine Ratio 15.8 (6-22) Glucose 124 H (70-99) mg/dL Calcium 10.0 (8.4-10.2) mg/dL Total Bilirubin 1.4 H (0.2-1.3) mg/dL AST 58 H (14-36) IU/L ALT 39 H (<35) IU/L Alkaline Phosphatase 88 (38-126) U/L Total Protein 8.4 H (6.3-8.2) g/dL Albumin 5.0 (3.5-5.0) g/dL Globulin 3.4 (1.7-4.1) g/dL Albumin/Globulin Ratio 1.5 (1.0-2.8) Lipase 105 (23-300) U/L ECG Data Attestation: I personally reviewed and interpreted this ECG as follows: Prior ECG tracings: not available for review Interpretation: Sinus rhythm rate 80, NE 164 QRS of 98 QTC 454, no acute ST elevation nonspecific change patient has not inverted T-wave in V1 and V2. No other ST elevation or depression noted. No priors for comparison. MDM Narrative Medical decision making narrative: EKG shows sinus rhythm nonspecific change CBC is normal, chemistries show a CO2 of 21 glucose of 124 otherwise normal renal function electrolytes bilirubin is 1.4 today with a AST of 58 ALT of 39 lipase is 105. Alk-phos is 88. Abdominal ultrasound shows nonmobile focal echogenicity identified 7 mm focused sludge in the gallbladder neck wall thickness normal measuring 1.2 mm no sonographic Ferraro's signs. Biliary ducts are normal size with no free fluid. Cholelithiasis without imaging appearance of cholecystitis. Patient had Zofran and Toradol was still quite painful had a dose of Dilaudid which was helpful but patient had some persistent nausea and vomiting and received a dose of lorazepam. Patient did have a drop in her O2 after receiving both benzodiazepine and narcotic but was weaned down in the department. Spoke with general surgery Dr. Hurley at [phone]. Reviewed findings from today, plans for inpatient he feels comfortable under his service rather than medicine. S if we can continue with maintenance fluids, strict NPO, PRN Ativan and pain medication. Discussed findings from today patient's workup, did require some O2 after having narcotics with benzos in conjunction but it was weaning off oxygen. Discussed we will not give any Dilaudid which is what she had earlier. Plan for surgery tomorrow. Discharge Plan Departure Patient Disposition: Admitted As Inpatient Clinical Impression: Cholelithiasis Admit Date/Time: 12/12/24 15:52 Admit Provider: Don Hurley
[2024-12-12] MEDS: METOCLOPRAMIDE 10 MG/2 ML INJ IV (16:05)
[2024-12-12] MEDS: SODIUM CHLORIDE 0.9% 1,000 ML 125 ML IV (16:05)
--- NOTE | 2024-12-12 16:58 | PC.NURSE ---
Pt arrived on stretcher from ED at 1635, able to transfer independently from stretcher to bed. A&Ox4, VSS on RA, CMS+ throughout. c/o nausea and abd pain but both much improved after meds from ED, no new meds needed at this time. Bowel sounds hypoactive but present. Pt and spouse oriented to room and call light. Bed in low position, call light within reach.
[2024-12-12 18:04] LABS: Appearance Urine UA CLEAR; Bilirubin Urine UA 1+ (NEGATIVE); Color Urine UA YELLOW; Glucose Urine UA NEGATIVE (Negative); Ketones Urine UA 2+ (NEGATIVE); Leukocyte Esterase Urine UA 1+ (NEGATIVE); Nitrite Urine UA NEGATIVE (Negative); Occult Blood Urine UA NEGATIVE (Negative); Protein Urine UA TRACE (Negative); Specific Gravity Urine UA 1.015 (1.000-1.035); Urobilinogen Urine UA 0.2 E.U./dL (0.2)
[2024-12-12 18:13] LABS: Bacteria Urine Few (2-10); Culture Indicated Urine Specimen Cultured; Ictotest Urine Negative (Negative); Mucus Urine 2+ (Negative); RBC Urine None Seen (0-5/HPF); Squamous Epithelial Cell Urine 0-1 /HPF (0-5/HPF); Urine Volume 10mL (spun); WBC Urine 0-1/HPF (0-5/HPF)
[2024-12-12] MEDS: ROPINIROLE 1 MG TABLET 4 MG PO (19:17)
[2024-12-13] VITALS (17 sets, daily range): BP systolic 110–167; BP diastolic 64–93; PULSE 65–90; RESP 12–93; TEMP 35.6–36.7; O2SAT 2–99; BMI 31.6
--- NOTE | 2024-12-13 | PATH_ITS ---
[facility] Accession Number: [id number] No. of containers..01 Tissue . 01 Material submitted: . gallbladder - GALLBLADDER AND CONTENTS . 01 Diagnosis: GALLBLADDER AND CONTENTS, CHOLECYSTECTOMY: Mild chronic calculous cholecystitis and reactive changes. Negative for dysplasia or malignancy. MRV 12/16/2024 1448 Local . 01 Electronically signed: . Dina Bonilla MD, Pathologist NPI- [id number] . 01 Gross description: . Received in formalin with two identifiers and gallbladder and contents, is a disrupted gallbladder, 7.8 x 3.1 x 2.0 cm, with a full thickness defect on the hepatic surface 1.1 cm in greatest dimension. The cystic duct margin is inked blue and no pericystic lymph node is identified. The lumen contains multiple black roughened calculi up to 0.5 cm in greatest dimension grossly obstructing the cystic duct and admixed with dark green viscous bile. The mucosa is green to calderon And velvety with no yellow areas of discoloration, polyps, or lesions identified. The esquivel average 0.3 cm thick. Motocross Racer sections to include the cystic duct margin and full thickness sections are submitted in A1. ([id number]) /MRV 12/15/2024 1931 Local . 01 Pathologist provided ICD-10: K80.10 . 01 CPT . 229413 Specimen Comment: A courtesy copy of this report has been sent to [facility] Pathology Performed at: [address] [id number] MD Yaniv Noguera MD Phone: [phone]
[2024-12-13] MEDS: SODIUM CHLORIDE 0.9% 1,000 ML 125 ML IV (01:02)
[2024-12-13] MEDS: KETOROLAC 30 MG/ML VIAL 15 MG IV (03:56)
--- NOTE | 2024-12-13 07:55 | P.HP_ITS ---
History of Present Illness History of Present Illness Chief complaint: NV poss gallstones Narrative: 49-year-old obese female with a several month history of intermittent episodes of previously unexplained nausea sub, subsequently associated with episodes of postprandial colicky right upper quadrant abdominal pain radiating to the back. Ultrasonography has demonstrated cholelithiasis without ultrasonic findings of acute cholecystitis or biliary ductal dilatation. She presented to the ED last night complaining of intolerance of oral intake and 3 days' worth of symptoms. She was afebrile. Her LFTs were normal. Ultrasonography confirmed stones in the gallbladder. She was admitted for definitive management. Since admission her pain has resolved. [facility] Medical History Anxiety with depression Diverticulosis of large intestine (~04/2017) Irregular menstrual cycle (2007) Ovarian cyst (2005) ADHD (attention deficit hyperactivity disorder) (2007) Generalized headaches Migraines Restless leg syndrome (2013) Chronic back pain Scoliosis Fractures Surgical History No history of previous surgery Family History Father No problems noted. Mother No problems noted. Social History household members: spouse and children Smoking Status: Former smoker alcohol intake: current Meds Home Medications and Allergies Home Medications Medication Instructions Recorded Confirmed Type omeprazole 20 mg capsule,delayed 20 mg PO DAILY 04/04/22 12/12/24 History release atorvastatin 20 mg tablet See Rx Instructions .Route 01/10/24 12/12/24 Rx .COMPLEX #90 tabs methocarbamol 500 mg tablet See Rx Instructions .Route 07/31/24 12/12/24 Rx .COMPLEX #60 tabs metoclopramide HCl 10 mg tablet See Rx Instructions .Route 09/22/24 12/12/24 Rx .COMPLEX #30 tabs propranolol 10 mg tablet 10 mg PO 3XD PRN for anxiety #90 09/22/24 12/12/24 Rx tabs ropinirole 2 mg tablet 4 mg (2 x 2 mg) PO BEDTIME #180 09/22/24 12/12/24 Rx tabs promethazine 25 mg rectal 25 mg LA Q6H PRN nausea and 10/23/24 12/12/24 Rx suppository vomiting #12 ea fluoxetine 20 mg capsule 60 mg (3 x 20 mg) PO DAILY #270 12/03/24 12/12/24 Rx caps semaglutide (weight loss) 0.25 0.5 mg SUBCUT QWEEK #4 mL 12/03/24 12/12/24 Rx mg/0.5 mL subcutaneous pen injector sumatriptan succinate 50 mg tablet 50 mg PO Q2-4H PRN migraine 12/03/24 12/12/24 Rx headache #20 tabs Allergies Allergy/AdvReac Type Severity Reaction Status Date / Time amoxapine [AMOXAPINE] Allergy Intermediate Verified 12/12/24 12:20 penicillin G [PENICILLIN G] Allergy Unknown cillin Verified 12/12/24 12:20 family Review of Systems Review of Systems Narrative: Comprehensive review of systems negative to direct questioning with the exception of the previously mentioned chronic conditions. Exam Vital Signs (past 8 hours): Fraction of Inspired Oxygen 24 SaO2/FiO2 Ratio 395 Oxygen Delivery Method Nasal Cannula Oxygen Flow Rate 1 Narrative Exam Narrative: In general this is a moderately obese female alert and oriented x3 in no acute distress. Head is normocephalic and atraumatic. Neck is supple. Lungs are clear to auscultation. Back is without CVA or spinous process tenderness. Chest is symmetric nontender with normal inspiratory and expiratory excursion. Heart has a regular rate and rhythm with no murmur or gallop. Abdomen is soft with mild right upper quadrant tenderness. Bowel sounds are present. Extremities manifests full range of motion. Neurological exam is grossly nonfocal. Objective Labs 12/12/24 12:28 12/12/24 12:28 Labs: Laboratory Results - last 24 hr 12/12/24 12/12/24 12:28 18:00 WBC 8.6 RBC 4.63 Hgb 14.2 Hct 41.9 MCV 90.4 MCH 30.7 MCHC 34.0 RDW 13.7 Plt Count 328 Neut % (Auto) 60.4 Lymph % (Auto) 28.1 [place] % (Auto) 6.7 Eos % (Auto) 3.2 Baso % (Auto) 1.6 Neut # (Auto) 5200 Lymph # (Auto) 2400 [place] # (Auto) 600 Eos # (Auto) 300 Baso # (Auto) 100 Sodium 137 Potassium 4.9 Chloride 103 Carbon Dioxide 21 L BUN 12 Creatinine 0.76 Estimated GFR > 60 BUN/Creatinine Ratio 15.8 Glucose 124 H Calcium 10.0 Total Bilirubin 1.4 H AST 58 H ALT 39 H Alkaline Phosphatase 88 Total Protein 8.4 H Albumin 5.0 Globulin 3.4 Albumin/Globulin Ratio 1.5 Lipase 105 Urine Color Yellow Urine Appearance Clear Urine pH 7.0 Ur Specific [place] 1.015 Urine Protein Trace H Urine Glucose (UA) Negative Urine Ketones 2+ H Urine Occult Blood Negative Urine Nitrate Negative Urine Bilirubin 1+ H Ur Bilirubin Confirm Negative Urine Urobilinogen 0.2 Ur Leukocyte Esterase 1+ H Urine RBC None seen Urine WBC 0-1/hpf Ur Squamous Epith Cells 0-1 /hpf Urine Bacteria Few (2-10) H Urine Mucus 2+ H Ur Culture Indicated? Specimen cultured Vol Urine Centrifuged 10ml (spun) Assessment & Plan Assessment and plan (1) Cholelithiasis: Qualifiers: Cholelithiasis location: gallbladder Cholecystitis presence: without cholecystitis Status: Acute Plan Symptomatic cholelithiasis. Duration of symptoms militate against delaying intervention at this time. I have recommended a laparoscopic attempt at cholecystectomy. Alternatives risks and benefits were discussed in detail. Questions were answered. Patient voices understanding, asked appropriate questions and desires to proceed as I have outlined. We will accommodate her when an OR can be made available this morning. Time-Based Coding :: [TOTAL MINUTES] spent with patient and on the chart (including review of chart, obtaining history, exam, reviewing outside data, placing orders, documenting exam and treatment plan, and counseling patient) on [DATE]. Quality VTE Deep Vein Thrombosis/Pulmonary Embolism Present on Admission: No [employer] Document charge(s): Yes
--- NOTE | 2024-12-13 08:12 | P.PN_ITS ---
Exam Vital Signs (past 8 hours): Fraction of Inspired Oxygen 24 SaO2/FiO2 Ratio 395 Oxygen Delivery Method Nasal Cannula Oxygen Flow Rate 1 Objective Labs 12/12/24 12:28 12/12/24 12:28 Labs: Laboratory Results - last 24 hr 12/12/24 12/12/24 12:28 18:00 WBC 8.6 RBC 4.63 Hgb 14.2 Hct 41.9 MCV 90.4 MCH 30.7 MCHC 34.0 RDW 13.7 Plt Count 328 Neut % (Auto) 60.4 Lymph % (Auto) 28.1 [place] % (Auto) 6.7 Eos % (Auto) 3.2 Baso % (Auto) 1.6 Neut # (Auto) 5200 Lymph # (Auto) 2400 [place] # (Auto) 600 Eos # (Auto) 300 Baso # (Auto) 100 Sodium 137 Potassium 4.9 Chloride 103 Carbon Dioxide 21 L BUN 12 Creatinine 0.76 Estimated GFR > 60 BUN/Creatinine Ratio 15.8 Glucose 124 H Calcium 10.0 Total Bilirubin 1.4 H AST 58 H ALT 39 H Alkaline Phosphatase 88 Total Protein 8.4 H Albumin 5.0 Globulin 3.4 Albumin/Globulin Ratio 1.5 Lipase 105 Urine Color Yellow Urine Appearance Clear Urine pH 7.0 Ur Specific [place] 1.015 Urine Protein Trace H Urine Glucose (UA) Negative Urine Ketones 2+ H Urine Occult Blood Negative Urine Nitrate Negative Urine Bilirubin 1+ H Ur Bilirubin Confirm Negative Urine Urobilinogen 0.2 Ur Leukocyte Esterase 1+ H Urine RBC None seen Urine WBC 0-1/hpf Ur Squamous Epith Cells 0-1 /hpf Urine Bacteria Few (2-10) H Urine Mucus 2+ H Ur Culture Indicated? Specimen cultured Vol Urine Centrifuged 10ml (spun) [facility] Medical History Anxiety with depression Diverticulosis of large intestine (~04/2017) Irregular menstrual cycle (2007) Ovarian cyst (2005) ADHD (attention deficit hyperactivity disorder) (2007) Generalized headaches Migraines Restless leg syndrome (2013) Chronic back pain Scoliosis Fractures Surgical History No history of previous surgery Family History Father No problems noted. Mother No problems noted. Social History household members: spouse and children alcohol intake: current Assessment & Plan Time-Based Coding :: [TOTAL MINUTES] spent with patient and on the chart (including review of chart, obtaining history, exam, reviewing outside data, placing orders, documenting exam and treatment plan, and counseling patient) on [DATE]. Quality VTE Deep Vein Thrombosis/Pulmonary Embolism Present on Admission: No [facility] PROFEE Health Insurance Specialist Document charge(s): Yes
[2024-12-13] MEDS: LACTATED RINGERS 1,000 ML 42 ML IV ×2 (09:04→11:17)
[2024-12-13] MEDS: CLINDAMYCIN 600 MG/50 ML PIGGYBACK 50 MG IV (09:55)
[2024-12-13] MEDS: BUPIVACAINE 0.5% (PF) 30 ML VIAL INJ (10:59)
[2024-12-13] MEDS: HYDROMORPHONE 1 MG INJ IV ×2 (11:20→11:32)
[2024-12-13] MEDS: hydrOXYzine 50 MG/ML INJ 25 MG IM (11:20)
[2024-12-13] MEDS: ONDANSETRON 4 MG/2 ML INJ IV (11:20)
--- NOTE | 2024-12-13 11:51 | PM.OP.1 ---
Operative Date/Time/Diagnoses Date of procedure: 12/13/24 Time of procedure: 10:00 Pre-op diagnosis: Cholelithiasis Post-op diagnosis: same Procedure & Clinicians Procedure: Laparoscopic cholecystectomy Same procedure as scheduled: Yes Surgeon: Don Hurley Click Yes if Unassisted: Yes Anesthesia Type: General Operative Notes Findings: Chronic cholecystitis with cholelithiasis Closure Type: primary Specimen(s): other (Gallbladder and contents) Estimated Blood Loss (mL): 30 Procedure in detail: After obtaining informed consent properly identifying the patient the patient was transported to the operating room and was placed on the table in spine position. General endotracheal anesthesia was induced and the abdomen was prepped and draped in the usual sterile manner. Time-out protocol was observed. A vertical midline incision was made with its caudad apex at the umbilical verge. This was carried with cautery down onto the linea [place]ba retraction sutures of 0 Vicryl were placed on either side of midline. A peritoneotomy was made with a 15 blade between the traction sutures under direct vision. A 12 mm Horner cannula was installed and was secured by inflating the balloon at its tip. Pneumoperitoneum was instilled and a 5 mm 0 degree scope was passed. Three additional 5 mm ports were placed 1 each in the following positions, 2 fingerbreadths below the right costal margin: Subxiphoid, midclavicular line and anterior axillary line. The gallbladder fundus was grasped and and was retracted anteriorly and cephalad. The infundibulum was retracted laterally. A combination of sharp and blunt dissection in the triangle of Calot demonstrated the cystic duct and artery. Critical view was obtained and these structures were triply clipped and transected between the clips nearest the gallbladder. The remainder of the procedure consisted of sharp dissection in a plane between the gallbladder wall and the gallbladder fossa. Prior to taking the final attachments at the infundibulum, the scope was withdrawn and passed through the subxiphoid port. An Endo-Catch specimen extractor was introduced through the Horner and was used to extract 3 or 4 spilled gallstones adjacent to the edge of the liver beneath the gallbladder fossa. The final attachments of the gallbladder were taken and another Endo-Catch was used to bag the specimen intraperitoneally, under direct laparoscopic vision. The balloon at the Horner tip was deflated and the Horner, Endo-Catch and specimen were withdrawn from the supraumbilical port site as a unit. Specimen was passed from the field and the port and 5 mm 0 degree scope were restored to their original positions. Perfect hemostasis was obtained at the gallbladder fossa. The area was copiously irrigated and all irrigant was evacuated. All laparoscopic equipment was withdrawn under direct laparoscopic vision. Pneumoperitoneum was evacuated and ports were withdrawn. The supraumbilical fascial defect was closed with a running 0 Prolene stitch. 5 mm port sites were closed with simple interrupted inverted deep dermal 3-0 Vicryl sutures and skin affix. The supraumbilical wound was closed by coagulating the wound margins with 3 simple interrupted deep dermal 3-0 Vicryl sutures and skin ponce. Dressings were applied. The patient tolerated the procedure well and was transported to the recovery room extubated and awake. Complications: none Post-operative Condition: stable Disposition: PACU Plan for aftercare: Discharge to home once tolerant of regular diet and in reasonable comfort.
--- NOTE | 2024-12-13 12:00 | P.DS_ITS ---
History of Present Illness History of Present Illness Chief complaint: NV poss gallstones Narrative: 49-year-old obese female with a several month history of intermittent episodes of previously unexplained nausea sub, subsequently associated with episodes of postprandial colicky right upper quadrant abdominal pain radiating to the back. Ultrasonography has demonstrated cholelithiasis without ultrasonic findings of acute cholecystitis or biliary ductal dilatation. She presented to the ED last night complaining of intolerance of oral intake and 3 days' worth of symptoms. She was afebrile. Her LFTs were normal. Ultrasonography confirmed stones in the gallbladder. She was admitted for definitive management. Since admission her pain has resolved. Discharge Providers Provider Date of admission: 12/12/24 15:52 Discharge Date: 01/13/25 Primary care physician: Susanna Rodarte MD Discharge provider: Don Hurley MD Summary Hospital Course Discharge Diagnosis: Symptomatic cholelithiasis Hospital Course: Patient was admitted. IV fluid resuscitation was undertaken. Pain control was implemented. On the morning of the 1st postop day the patient was taken to the operating room where a laparoscopic cholecystectomy was undertaken under general endotracheal anesthesia. Intraoperative findings consisted of cholelithiasis with chronic cholecystitis. Procedure was uncomplicated and well tolerated by the patient. Her postoperative course was characterized by rapid recovery. She tolerated clear liquids and subsequently a regular diet the afternoon after surgery. She was discharged home in good condition and will follow up in 1 week. Status at Discharge Cognitive/behavioral status at discharge: oriented Functional status at discharge: independent ambulation Overall status at discharge: patient is progressing back to baseline Time Spent with Patient Time spent: Greater than 30 minutes Exam Vital Signs (past 8 hours): - 12/13/24 08:00 12/13/24 09:04 12/13/24 11:09 Temperature 96.9 F L 98.1 F 97.7 F Pulse Rate 65 65 90 Respiratory Rate 16 16 20 Blood Pressure 123/64 125/69 151/84 H Pulse Oximetry 99 98 89 L Oxygen Delivery Method Room Air Room Air Oxygen Flow Rate 0 12/13/24 11:14 12/13/24 11:19 12/13/24 11:24 Temperature Pulse Rate 82 82 83 Respiratory Rate 19 20 12 Blood Pressure 155/84 H 157/89 H 149/84 H Pulse Oximetry 92 96 96 Oxygen Delivery Method Nasal Cannula Nasal Cannula Nasal Cannula Oxygen Flow Rate 2 2 2 12/13/24 11:29 12/13/24 11:34 12/13/24 11:39 Temperature Pulse Rate 81 84 74 Respiratory Rate 23 18 93 H Blood Pressure 148/85 H 140/80 152/85 H Pulse Oximetry 96 95 2 L Oxygen Delivery Method Nasal Cannula Nasal Cannula Nasal Cannula Oxygen Flow Rate 2 2 12/13/24 11:49 12/13/24 11:55 Temperature Pulse Rate 68 69 Respiratory Rate 14 18 Blood Pressure 156/85 H 165/93 H Pulse Oximetry 96 97 Oxygen Delivery Method Nasal Cannula Nasal Cannula Oxygen Flow Rate 2 2 Fraction of Inspired Oxygen 24 SaO2/FiO2 Ratio 395 Oxygen Delivery Method Nasal Cannula Oxygen Flow Rate 2 Narrative Exam Narrative: See my physical exam from the dictated H and P. Of note was a generally soft abdomen. Bowel sounds were present. Right upper quadrant and epigastric tenderness are noted Objective Labs 12/12/24 12:28 12/12/24 12:28 Labs: Laboratory Results - last 24 hr 12/12/24 12/12/24 12:28 18:00 WBC 8.6 RBC 4.63 Hgb 14.2 Hct 41.9 MCV 90.4 MCH 30.7 MCHC 34.0 RDW 13.7 Plt Count 328 Neut % (Auto) 60.4 Lymph % (Auto) 28.1 [place] % (Auto) 6.7 Eos % (Auto) 3.2 Baso % (Auto) 1.6 Neut # (Auto) 5200 Lymph # (Auto) 2400 [place] # (Auto) 600 Eos # (Auto) 300 Baso # (Auto) 100 Sodium 137 Potassium 4.9 Chloride 103 Carbon Dioxide 21 L BUN 12 Creatinine 0.76 Estimated GFR > 60 BUN/Creatinine Ratio 15.8 Glucose 124 H Calcium 10.0 Total Bilirubin 1.4 H AST 58 H ALT 39 H Alkaline Phosphatase 88 Total Protein 8.4 H Albumin 5.0 Globulin 3.4 Albumin/Globulin Ratio 1.5 Lipase 105 Urine Color Yellow Urine Appearance Clear Urine pH 7.0 Ur Specific [place] 1.015 Urine Protein Trace H Urine Glucose (UA) Negative Urine Ketones 2+ H Urine Occult Blood Negative Urine Nitrate Negative Urine Bilirubin 1+ H Ur Bilirubin Confirm Negative Urine Urobilinogen 0.2 Ur Leukocyte Esterase 1+ H Urine RBC None seen Urine WBC 0-1/hpf Ur Squamous Epith Cells 0-1 /hpf Urine Bacteria Few (2-10) H Urine Mucus 2+ H Ur Culture Indicated? Specimen cultured Vol Urine Centrifuged 10ml (spun) PFSH Medical History Anxiety with depression Diverticulosis of large intestine (~04/2017) Irregular menstrual cycle (2007) Ovarian cyst (2005) ADHD (attention deficit hyperactivity disorder) (2007) Generalized headaches Migraines Restless leg syndrome (2013) Chronic back pain Scoliosis Fractures Surgical History No history of previous surgery Family History Father No problems noted. Mother No problems noted. Social History household members: spouse and children Smoking Status: Former smoker alcohol intake: current Discharge Assessment & Plan Assessment and Plan Assessment: Stable postop. Good candidate for discharge. Plan of Treatment: Discharge home follow up 1 week. Discharge Plan Discharge Plan Patient Disposition: Home Discharge orders & Medications Prescriptions: New hydrocodone-acetaminophen 5-325 mg tablet 1 tab PO Q6H PRN (Reason: pain) Qty: 30 0RF Continued omeprazole 20 mg capsule,delayed release(DR/EC) 20 mg PO DAILY ropinirole 2 mg tablet 4 mg PO BEDTIME Qty: 180 3RF propranolol 10 mg tablet 10 mg PO 3XD PRN (Reason: for anxiety) Qty: 90 3RF metoclopramide HCl 10 mg tablet See Rx Instructions .ROUTE .COMPLEX Qty: 30 3RF Dose Instruction: take 1 tablet by mouth every 6 hours if needed for nausea and vomiting Rx Instructions: take 1 tablet by mouth every 6 hours if needed for nausea and vomiting atorvastatin 20 mg tablet See Rx Instructions .ROUTE .COMPLEX Qty: 90 3RF Dose Instruction: take 1 tablet by mouth once daily Rx Instructions: take 1 tablet by mouth once daily methocarbamol 500 mg tablet See Rx Instructions .ROUTE .COMPLEX Qty: 60 1RF Dose Instruction: take 1 tablet by mouth four times a day if needed back pain Rx Instructions: take 1 tablet by mouth four times a day if needed back pain semaglutide (weight loss) 0.25 mg/0.5 mL pen injector 0.5 mg SUBCUT QWEEK Qty: 4 0RF Rx Instructions: administer weeks 5 through 8 of therapy fluoxetine 20 mg capsule 60 mg PO DAILY Qty: 270 3RF sumatriptan succinate 50 mg tablet 50 mg PO Q2-4H PRN (Reason: migraine headache) Qty: 20 0RF promethazine 25 mg suppository 25 mg ND Q6H PRN (Reason: nausea and vomiting) Qty: 12 0RF Follow up/Referrals: Susanna Rodarte MD [Primary Care Provider] - Visit Report/Discharge Packet Stand Alone Forms: Patient Portal/API, Stroke Signs & Symptoms Discharge Data Primary Care Provider: Susanna Rodarte Attending Provider: Don Hurley Admit Date/Time: 12/12/24 15:52 Quality VTE Deep Vein Thrombosis/Pulmonary Embolism Present on Admission: No IH PROFEE Charge Codes Discharge inpatient/observation: 11175
--- NOTE | 2024-12-13 12:20 | PC.NURSE ---
Addendum entered by Gita Jauregui R.N. 12/13/24 18:26: Pt able to ambulate in room ind. Tolerating PO intake. Per provider order, IV saline locked as pt is taking PO fluids. Ambulating in halls with spouse. Vitals WDL. Care ongoing. Original Note: Day shift: Pt transferred to preop at appoximately 0930. Pt transferred from PACU to 224 at approximately 1210, A&Ox4, fatigued and reporting 4/10 pain in abdomen. Reoriented to room, family at bedside. SCDs placed, vital signs obtained and WDL. Care ongoing.
[2024-12-13] MEDS: HYDROCODONE/ACET 5/325 TABLET 2 TAB PO ×3 (12:57→22:01)
[2024-12-13] MEDS: LACTATED RINGERS 1,000 ML 125 ML IV (12:58)
--- NOTE | 2024-12-13 14:29 | CM.DANOTE ---
Patient is a 49 yo female who was admitted OBS Status on 12/12/24 for Gallstones. Pt has [employer] for insurance and her PCP is Dr. Susanna Rodarte at [facility]. EMR was reviewed. Per Surgeon, pt with several months of abdominal pain and finally found to have gallstones in the ED and admitted for Lap Lelia today. Per RN, pt was off floor early this AM for surgery and remains off the floor as of 1430 today. Surgeon initially anticipated likely d/c home this evening pending surgery results. Patient lives in [place] with her spouse who is an RN and their children and pt is independent at baseline with no hx of recent hospital admissions. Ambulates independently and no concerns noted or identified barriers to discharge. Plan: SW to follow for likely plan of discharge home this evening post surgical intervention and outpt f/u and any further identified discharge planning needs. ABRAM Horn Discharge Planning/Care Management CM Discharge Assessment Start: 12/13/24 14:27 Freq: Status: Active Protocol: Document 12/13/24 14:28 BF (Rec: 12/13/24 14:29 BF [id number]) Discharge Planning Assessment Assigned Spool Fixer ABRAM Olson DPOA/Assigned Designee Name informally spouse Inez Contact Information [phone] Advance Directives? No Advance Directives on File No History Provided By Patient,Medical Record Has Patient been admitted in last 30 No days? Prior Living Arrangements House Household Members spouse,children Type of transporation used prior to Drives own vehicle admit Independent with ADL's Yes Is patient alert and oriented? Yes Caregiver for Another No Barriers to Discharge No Discharge Plan Home Transportation Arrangement Spouse can transport at d/c Referrals Initiated None needed Review Status In Process Please Provide Date Initial DC 12/13/24 Assessment Was Performed Next Review Type Continued Stay Review
[2024-12-13] MEDS: HYDROMORPHONE 0.5 MG INJ IV ×2 (17:36→19:57)
[2024-12-13] MEDS: SODIUM CHLORIDE 0.9% FLUSH 10 ML IV (22:02)
[2024-12-14] MEDS: HYDROMORPHONE 0.5 MG INJ IV (00:05)
[2024-12-14] MEDS: HYDROCODONE/ACET 5/325 TABLET 2 TAB PO ×2 (05:24→09:07)
[2024-12-14] MEDS: PANTOPRAZOLE DR 20 MG TABLET PO (05:24)
[2024-12-14 06:00] VITALS: O2SAT 95
--- NOTE | 2024-12-14 07:46 | CM.DPC ---
DCP Discharge Home Per Surgeon, pt tolerated surgery well and pain is controlled and diet switched to general and medically stable to d/c home today with outpt f/u in one week. Per Rn, pt was ambulating with spouse independently and tolerated diet and voiding and no concerns noted. SW alerted TCM group for outpt f/u with PCP Dr. Rodarte in a week. ABRAM Horn
[2024-12-14 07:59] VITALS: BP 113/63; PULSE 70; RESP 19; TEMP 36.2; O2SAT 96
--- NOTE | 2024-12-14 08:06 | PM.PN.IH.1 ---
Subjective Subjective Interval history: Feels well. Wants to go home. Exam Vital Signs (past 8 hours): - 12/14/24 06:00 12/14/24 07:59 Temperature 97.1 F L Pulse Rate 70 Respiratory Rate 19 Blood Pressure 113/63 Pulse Oximetry 95 96 Oxygen Flow Rate 0 0 Fraction of Inspired Oxygen 24 SaO2/FiO2 Ratio 395 Oxygen Delivery Method Nasal Cannula Oxygen Flow Rate 0 Narrative Exam Narrative: Lungs clear to auscultation. Heart has a regular rate and rhythm with no murmur or gallop. Abdomen is soft with appropriate incisional tenderness. Bowel sounds are present. She is tolerant of regular diet. Objective Labs 12/12/24 12:28 12/12/24 12:28 [facility] Medical History Anxiety with depression Diverticulosis of large intestine (~04/2017) Irregular menstrual cycle (2007) Ovarian cyst (2005) ADHD (attention deficit hyperactivity disorder) (2007) Generalized headaches Migraines Restless leg syndrome (2013) Chronic back pain Scoliosis Fractures Surgical History No history of previous surgery Family History Father No problems noted. Mother No problems noted. Social History household members: spouse and children Smoking Status: Former smoker alcohol intake: current Assessment & Plan Assessment and plan (1) Cholelithiasis: Qualifiers: Cholecystitis presence: without cholecystitis Cholelithiasis location: gallbladder Biliary obstruction: without biliary obstruction Qualified Code(s): K80.20 - Calculus of gallbladder without cholecystitis without obstruction Status: Acute (2) Urinary tract infection: Qualifiers: Urinary tract infection type: acute cystitis Hematuria presence: without hematuria Qualified Code(s): N30.00 - Acute cystitis without hematuria Status: Acute Plan Cholelithiasis: Doing well status post cholecystectomy. Pain control adequate. Tolerant a regular diet. Discharge to home with analgesics. Urinary tract infection: Discharge to home on Bactrim DS for 10 days. Follow up with me 1 week. Time-Based Coding :: [TOTAL MINUTES] spent with patient and on the chart (including review of chart, obtaining history, exam, reviewing outside data, placing orders, documenting exam and treatment plan, and counseling patient) on [DATE]. Quality VTE Deep Vein Thrombosis/Pulmonary Embolism Present on Admission: No IH PROFEE Independent Jeweler Document charge(s): Yes
--- NOTE | 2024-12-14 09:27 | PC.NURSE ---
Discharge: Pt agreeable to discharge. Education provided regarding new medications including antibiotics for UTI and pain medication, constipation prevention. Pt ambulating in halls and room ind. IV discontinued, paperwork signed, pt wheeled via w/c to private vehicle with PCT and spouse at approximately. 0930.
== END 2024-12-14 09:30 | disposition home or self-care (01) ==
LOC: ED 15:50 → AC 15:55
PROVIDERS: Admitting Provider Surgery; Emergency Provider Emergency Medicine; PCP Family Medicine; Referring Provider Emergency Medicine; Visit Provider Surgery
PROC: 0FT44ZZ Resection of Gallbladder, Percutaneous Endoscopic Approach (ICD-10-PCS; CPT 47562; principal; 2024-12-13 10:15)
DX: K80.10 Calculus of gallbladder with chronic cholecystitis without obstruction (principal); K21.9 Gastro-esophageal reflux disease without esophagitis; E66.9 Obesity, unspecified; Z87.891 Personal history of nicotine dependence
CPT/HCPCS: 47562; 36415; 76705; 80053; 81001; 83690; 85025; 87077; 87086; 87186; 93005; 96361; 96374; 96375; 96376; 99284; G0378; J0330; J1100; J1171; J1885; J2060; J2250; J2405; J2704; J2765; J3010; J3410; J3490

== ENCOUNTER 2024-12-20 08:49 | Emergency (ER) | payer OTHER, SELFPAY ==
[2024-12-12 16:39] VITALS: BMI 31.6
[2024-12-20] VITALS (11 sets, daily range): BP systolic 124–140; BP diastolic 62–79; PULSE 70–95; RESP 14–36; TEMP 35.6; O2SAT 94–99; BMI 29.5
--- NOTE | 2024-12-20 09:05 | EKG_ITS ---
[facility] [address] [place] [address] Test Date: 2024-12-20 Pat Name: Jackelyn Arteaga Department: [facility] Room: Gender: Female Termite Renewal Inspector: KEYA : 1975 Requested By: Order Number: [id number] Reading MD: Madhav Durbin MD Measurements Intervals [place] Rate: 90 P: 65 [place]: 160 QRS: 64 QRSD: 92 T: 53 QT: 368 QTc: 450 Interpretive Statements Normal sinus rhythm Nonspecific ST and T wave abnormality Electronically Signed On 12-21-2024 7:27:06 PDT by Madhav Durbin MD
[2024-12-20] MEDS: ONDANSETRON 4 MG/2 ML INJ IV (09:13)
--- NOTE | 2024-12-20 09:13 | ED_ITS ---
HPI - Abdominal Pain General Chief Complaint: Abdominal Pain Stated Complaint: t-7 post gallbladde surgery, having complications Time Seen by Provider: 12/20/24 08:58 Source: patient Mode of arrival: Ambulatory History of Present Illness HPI narrative: Patient is a 49-year-old female status post cholecystectomy from 12/13/2024 presenting today with fever nausea ongoing pain. He was diagnosed with a UTI but due to ongoing nausea and pain unable to take antibiotics. She reports waking up and drenching sweats is trying to drink fluids by icy has significantly decreased appetite. She was passing gas she was urinating. Generally not feeling well. Related Data Home Medications Medication Instructions Recorded Confirmed omeprazole 20 mg capsule,delayed 20 mg PO DAILY 04/04/22 12/12/24 release Previous Rx's Medication Instructions Recorded atorvastatin 20 mg tablet See Rx Instructions .Route 01/10/24 .COMPLEX #90 tabs methocarbamol 500 mg tablet See Rx Instructions .Route 07/31/24 .COMPLEX #60 tabs metoclopramide HCl 10 mg tablet See Rx Instructions .Route 09/22/24 .COMPLEX #30 tabs propranolol 10 mg tablet 10 mg PO 3XD PRN for anxiety #90 09/22/24 tabs ropinirole 2 mg tablet 4 mg (2 x 2 mg) PO BEDTIME #180 09/22/24 tabs promethazine 25 mg rectal 25 mg AZ Q6H PRN nausea and 10/23/24 suppository vomiting #12 ea fluoxetine 20 mg capsule 60 mg (3 x 20 mg) PO DAILY #270 12/03/24 caps semaglutide (weight loss) 0.25 0.5 mg SUBCUT QWEEK #4 mL 12/03/24 mg/0.5 mL subcutaneous pen injector sumatriptan succinate 50 mg tablet 50 mg PO Q2-4H PRN migraine 12/03/24 headache #20 tabs hydrocodone 5 mg-acetaminophen 325 1 tab PO Q6H PRN pain #30 tabs 12/13/24 mg tablet sulfamethoxazole 800 1 tab PO Q12H #20 tabs 12/14/24 mg-trimethoprim 160 mg tablet ondansetron 4 mg disintegrating 4 mg PO Q6H PRN nausea and 12/18/24 tablet vomiting #40 tabs lorazepam 1 mg tablet 1 mg PO BID PRN nausea and 12/20/24 vomiting #3 tabs nystatin 100,000 unit/mL oral 1 ml PO DAILY #60 mL 12/20/24 suspension tramadol 50 mg tablet 50 mg PO Q6H PRN pain #14 tabs 12/20/24 Allergies Allergy/AdvReac Type Severity Reaction Status Date / Time amoxapine [AMOXAPINE] Allergy Intermediate Verified 12/12/24 12:20 penicillin G [PENICILLIN G] Allergy Unknown cillin Verified 12/12/24 12:20 family Patient History Medical History Anxiety with depression Diverticulosis of large intestine (~04/2017) Irregular menstrual cycle (2007) Ovarian cyst (2005) ADHD (attention deficit hyperactivity disorder) (2007) Generalized headaches Migraines Restless leg syndrome (2013) Chronic back pain Scoliosis Fractures Surgical History No history of previous surgery Family History Father No problems noted. Mother No problems noted. Social History household members: spouse and children Smoking Status: Never smoker alcohol intake: current Smoking Status: Never smoker Alcohol type: beer Exam Initial Vital Signs Initial Vital Signs: Vital Signs Pulse Rate 95 H 12/20/24 08:56 Respiratory Rate 32 H 12/20/24 08:56 Pulse Oximetry 97 12/20/24 08:56 GENERAL: Tearful anxious 49-year-old female and in no acute distress. HEENT: Head atraumatic,EOMI, pupils reactive, face symmetric, thrush noted on tongue CARDIOVASCULAR: Regular rate and rhythm without murmurs, rubs or gallops. RESPIRATORY: Breath sounds equal bilaterally, no wheezes rales or rhonchi. ABDOMEN: Soft, mildly tender incision sites clean and dry no evidence of infection EXTREMITIES: Normal range of motion, no clubbing or edema. Neurovascularly intact NEUROLOGICAL: Alert and oriented x4.Normal gait and speech. Cranial nerves II through XII grossly intact. SKIN: Warm, dry, no laceration, no petechiae, no rashes or lesions. Course Orders Ordered: ED Orders 12/20/24 09:00 Complete Blood Count AUTO DIFF Stat Comprehensive Metabolic Panel Stat Lactate (Lactic Acid) Stat Lipase Stat Procalcitonin Stat 12/20/24 09:05 EKG-12 Lead Stat 12/20/24 09:18 CT abdomen pelvis w con Stat 12/20/24 09:30 Blood Culture Stat 12/20/24 09:46 Ictotest Urine Stat Urine Culture Stat Urine Microscopic Stat Discontinued Medications Sodium Chloride (Normal Saline 0.9%) 1,000 mls @ 1,000 mls/hr IV BOLUS ONE Stop: 12/20/24 10:17 Last Infusion: 12/20/24 10:30 Dose: Infused Documented By: Admin: 12/20/24 09:29 Dose: 1,000 mls/hr Documented By: TATIANA Ceftriaxone Sodium 1,000 mg/ (Sodium Chloride) 100 mls @ 200 mls/hr IV NOW ONE Stop: 12/20/24 09:19 Last Infusion: 12/20/24 10:32 Dose: Infused Documented By: Admin: 12/20/24 09:29 Dose: 200 mls/hr Documented By: TATIANA Sodium Chloride (Normal Saline 0.9%) 1,000 mls @ 1,000 mls/hr IV BOLUS ONE Stop: 12/20/24 11:33 Last Infusion: 12/20/24 12:05 Dose: Infused Documented By: Admin: 12/20/24 10:46 Dose: 1,000 mls/hr Documented By: TATIANA Ketorolac Tromethamine (Ketorolac 30 Mg/Ml Vial) 15 mg IV NOW ONE Stop: 12/20/24 09:19 Last Admin: 12/20/24 09:29 Dose: 15 mg Documented By: TATIANA Lorazepam (Lorazepam 0.5 Mg Tablet) 1 mg PO NOW ONE Stop: 12/20/24 10:35 Last Admin: 12/20/24 10:45 Dose: 1 mg Documented By: TATIANA Ondansetron HCl (Ondansetron 4 Mg/2 Ml Inj) 4 mg IV NOW PRN PRN Reason: Nausea And Vomiting Last Admin: 12/20/24 09:13 Dose: 4 mg Documented By: TATIANA Ondansetron HCl (Ondansetron 4 Mg Odt) 4 mg PO NOW PRN PRN Reason: Nausea And Vomiting Ondansetron HCl (Ondansetron 4 Mg/2 Ml Inj) 4 mg IV NOW ONE Stop: 12/20/24 09:19 Last Admin: 12/20/24 09:40 Dose: Not Given Documented By: TATIANA Vital Signs Vital signs: Vital Signs - 8 hr 12/20/24 08:56 12/20/24 08:59 12/20/24 09:00 Temperature 96.0 F L Pulse Rate 95 H 84 89 Respiratory Rate 32 H 18 27 H Blood Pressure 140/77 Pulse Oximetry 97 97 97 Oxygen Delivery Method Room Air Room Air 12/20/24 09:00 12/20/24 09:30 12/20/24 09:30 Temperature Pulse Rate 78 Respiratory Rate 28 H Blood Pressure 140/79 124/65 Pulse Oximetry 95 Oxygen Delivery Method 12/20/24 10:00 12/20/24 10:30 12/20/24 10:35 Temperature Pulse Rate 76 73 72 Respiratory Rate 36 H 33 H 28 H Blood Pressure Pulse Oximetry 97 99 99 Oxygen Delivery Method 12/20/24 10:35 12/20/24 11:00 12/20/24 11:30 Temperature Pulse Rate 70 75 Respiratory Rate 18 22 Blood Pressure 128/62 Pulse Oximetry 98 94 Oxygen Delivery Method 12/20/24 11:42 12/20/24 11:42 12/20/24 12:05 Temperature Pulse Rate 80 82 Respiratory Rate 22 14 Blood Pressure 126/70 126/70 Pulse Oximetry 94 Oxygen Delivery Method Room Air MDM - Abdominal Pain Lab Data 12/20/24 09:00 12/20/24 09:00 Labs: Lab Results 12/20/24 12/20/24 12/20/24 Range/Units 09:00 09:46 11:17 WBC 7.6 (4.5-11.0) X10^3/uL RBC 4.71 (4.0-5.2) X10^6/uL Hgb 14.3 (12.0-16.0) g/dL Hct 42.4 (36-46) % MCV 90.1 (80-100) fL MCH 30.5 (26-34) PG MCHC 33.8 (30-36) % RDW 14.1 (11.6-14.8) % Plt Count 477 H (150-400) X10^3/uL Neut % (Auto) 57.0 (50-75) % Lymph % (Auto) 29.4 (25-40) % [place] % (Auto) 11.3 (3-14) % Eos % (Auto) 1.5 L (2-4) % Baso % (Auto) 0.8 (0-2) % Neut # (Auto) 4400 (0982-0429) /uL Lymph # (Auto) 2200 (9783-2358) /uL [place] # (Auto) 900 (0-900) /uL Eos # (Auto) 100 (0-450) /uL Baso # (Auto) 100 (0-100) /uL Sodium 138 (137-145) mmol/L Potassium 3.9 (3.4-5.1) mmol/L Chloride 106 (98-107) mmol/L Carbon Dioxide 17 L (22-32) mmol/L BUN 10 (7-17) mg/dL Creatinine 0.87 (0.52-1.04) mg/dL Estimated GFR > 60 (>60) mL/min BUN/Creatinine Ratio 11.5 (6-22) Glucose 112 H (70-99) mg/dL Lactate 2.5 H 1.0 (0.7-2.1) mmol/L Calcium 9.9 (8.4-10.2) mg/dL Total Bilirubin 0.6 (0.2-1.3) mg/dL AST 52 H (14-36) IU/L ALT 68 H (<35) IU/L Alkaline Phosphatase 168 H D (38-126) U/L Total Protein 8.7 H (6.3-8.2) g/dL Albumin 4.5 (3.5-5.0) g/dL Globulin 4.2 H (1.7-4.1) g/dL Albumin/Globulin Ratio 1.1 (1.0-2.8) Lipase 151 (23-300) U/L Procalcitonin 0.106 (<0.5) ng/mL Ur Bilirubin Confirm Negative (Negative) Urine RBC None seen (0-5/HPF) Urine WBC 1-5/hpf (0-5/HPF) Ur Squamous Epith Cells 1-5 /hpf (0-5/HPF) Urine Bacteria None seen (None) Ur Culture Indicated? Specimen cultured Vol Urine Centrifuged 10ml (spun) Point of care testing: Urine Dip Bedside Urine Glucose Negative Bedside Urine Bilirubin + 1 Bedside Urine Ketone +/- 5 Urine Specific [place] 1.020 Bedside Urine Occult Blood - Negative Bedside Urine pH 6.0 Bedside Urine Protein + 30 Bedside Urine Urobilinogen +/- 1mg Bedside Urine Nitrite - Negative Bedside Urine Leukocytes +/- [address] scan - abdomen/pelvis: Radiologist's Impression: PROCEDURE: CT ABDOMEN PELVIS W CON INDICATIONS: post gallbladder with fever TECHNIQUE: After the administration of intravenous contrast, axial sections acquired from the lung bases to the pubic symphysis. Coronal and sagittal reformats were performed. For radiation dose reduction, the following was used: automated exposure control, adjustment of mA and/or kV according to patient size. COMPARISON: [facility], CT, CT ABDOMEN PELVIS W CON, 10/23/2024, 9:45. FINDINGS: Image quality: Diagnostic. Lower Chest: No significant hiatal hernia is seen. There is a borderline prominent lymph node seen adjacent to the distal esophagus, as on series 2, image 25, measuring 11 x 8 mm. ABDOMEN: Liver: No solid mass. The liver is prominent in size and demonstrates diffuse fatty liver infiltration. Gallbladder: Cholecystectomy clips are seen. There is a mild degree of poorly defined fluid within the cholecystectomy bed. No abscess is seen. Rim calcified gallstones can be seen within the peritoneal cavity, adjacent to the posterior/inferior aspect of the liver, as on series 2, image 55 and on series 2 image 64. Biliary ducts: No biliary dilation. Pancreas: No ductal dilation. Spleen: Size is within normal limits. Adrenal Glands: No adrenal nodules. Kidneys and Ureters: No hydronephrosis. No solid mass. No complex renal cystic lesion which requires follow up. Stomach and Bowel: The previously seen colonic wall thickening is clearly improved compared to the prior examination, now with a mild degree of wall thickening and fatty metaplasia seen, particularly affecting the ascending colon and the transverse colon. There is mild wall thickening with fatty metaplasia is seen within the terminal ileum. Mild distal colonic diverticulosis is seen, without findings of active diverticulitis. No dilated loops of small bowel are seen. Peritoneum: No abnormal intraperitoneal fluid. No free air. Ventral Wall: No significant ventral hernia. Anterior abdominal wall postoperative change is seen. Abdominal Nodes: No retroperitoneal or mesenteric adenopathy by size criteria. Vessels: Aorta and inferior vena cava are normal in size. PELVIS: Pelvic Organs: No adnexal masses are seen on either side. Bladder: No bladder wall thickening, accounting for underdistention. Pelvic Nodes: No enlarged lymph nodes. Miscellaneous: No inguinal hernias are seen. Bones: No aggressive osseous abnormality. Mild dextroconvex scoliotic curvature is seen. Age-appropriate bony degenerative changes are seen. IMPRESSION: Status post cholecystectomy, with a mild degree free fluid seen within the cholecystectomy bed. This is seen. There are gallstones seen along the posterior inferior aspect of the liver within the peritoneal cavity. Improved colonic wall thickening since the prior examination, yet with a mild degree of wall thickening seen proximally. Fatty metaplasia can be seen involving the terminal ileum of the proximal colon. Please consider Crohn's disease versus chronic inflammatory change. Additional findings: Diverticulosis, without active diverticulitis Note: Case discussed by telephone with Dr. Watkins at 10:01 a.m. on December 20, 2024. Dictated by: Bernardo Valdez M.D. on 12/20/2024 at 8:57 ECG Data Attestation: I personally reviewed and interpreted this ECG as follows: Prior ECG tracings: available for review Interpretation: Normal sinus rhythm rate 90 AZ interval 160 QRS [address] changes similar to previous EKGs respiratory artifact noted MDM Narrative Medical decision making narrative: MDM CC: Nausea abdominal pain Complicating co-morbidities: Recent post cholecystectomy Data collected from: Patient, partner Medical records reviewed: Recent admission and surgery reviewed Differential considered: Postsurgical complication sepsis Exam documented above, pertinent findings include: [Patient awake shaking abdomen is quite tender on the right side new incisional infection appreciated Lab Test results independently reviewed as above. Pertinent findings: WBC 7.6 hemoglobin 14.3 crit 42.4 platelets 477 Electrolytes sodium 138 potassium 3.9 chloride 106 bicarb 17 BUN 10 creatinine 0 8 Lactate 2.5 repeat 1.0 Bilirubin 0.6 AST 52 ALT 68 alk-phos 168 lipase 151 Procalcitonin 0.106 Independently reviewed EKG as above Sinus rhythm no ischemia Imaging studies independently reviewed: CT abdomen pelvis mild degree of fluid seen within cholecystectomy bed gallstone seen along posterior inferior aspect of liver within a peritoneal cavity. Improved colonic wall thickening since prior exam yet with mild degree of wall thickening seen proximally Consultations: 0384 Dr. Hurley updated on CT results. Aware of gallstones in abdomen, has reviewed CT reports she was not cause complication Treatments: IV fluids Toradol p.o. Ativan Rocephin Re-evaluations: Patient is doing much better after the Ativan Discussion: Patient is a 49-year-old female status post cholecystectomy presenting today with abdominal pain. She has a known UTI she was unable to take her antibiotics due to ongoing nausea. Pain is out of control. They did stop narcotic medications thinking that it might be making her more nauseous. Pain is much better after Toradol and shaking his better after Ativan. She was tolerating p.o. fluids. Generally feeling better. She does have a Klebsiella from 12/12/2024 she was prescribed Bactrim which is appropriate. She was also given a dose of IV Rocephin here. She was anti nausea medication at home. We talked about trying tramadol to help with pain. She was found to have some gallstones left in her abdomen surgery was consulted no significant complication should not cause much problems. They have an appointment with surgery tomorrow for follow-up. At this time patient feels ready able to go. Discharge Plan Departure Patient Disposition: Home Clinical Impression: UTI (urinary tract infection), Post-op pain, Candidiasis of mouth Instructions: Thrush-Adult Activity Restrictions/Additional Instructions: *You have been diagnosed with postoperative pain UTI and throat *What to do: At this time increase fluid as tolerated recommend electrolyte fluid of your choice *Continue to take medications as directed Nystatin swish and spit as directed Lorazepam 1 mg every 6 hours only if needed for ongoing nausea or you may take before bed Tramadol 50-100 mg every 6 hours if needed for severe pain Tylenol 1000 mg every 6 hours for [id number] *Follow up with your primary care provider in 2-3 days or call [phone] Follow up with surgery as directed *Return to ER if you should have increasing pain fever not tolerating fluids or any new, worsening or concerning symptoms CONTROLLED SUBSTANCE DISCHARGE (Narcotoic/benzodiazepine/Flexeril/Phenergan) 1. You have been prescribed narcotic medications, it does have acetaminophen/Tylenol/paracetamol in it, DO NOT TAKE MORE THAN 4,00mg in 24 hours of Tylenol. TRAMADOL DOES NOT CONTAIN TYLENOL 2. Please understand that we cannot provide further refills of narcotics, benzodiazepines or controlled substances through the ED and her pain management will need to be through your provider. 3. While on these medications you cannot drive or operate heavy machinery. 4. You cannot sign legal documents or perform any duties such as this. 5. As long as you're taking opiate pain medications he should also be taking a stool softener such as Colace, Dulcolax, MiraLAX or prune juice, to help avoid constipation. Prescriptions: New lorazepam 1 mg tablet 1 mg PO BID PRN (Reason: nausea and vomiting) Qty: 3 0RF tramadol 50 mg tablet 50 mg PO Q6H PRN (Reason: pain) Qty: 14 0RF nystatin 100,000 unit/mL suspension 1 ml PO DAILY Qty: 60 0RF Rx Instructions: swish and swallow No Action omeprazole 20 mg capsule,delayed release(DR/EC) 20 mg PO DAILY ropinirole 2 mg tablet 4 mg PO BEDTIME Qty: 180 3RF propranolol 10 mg tablet 10 mg PO 3XD PRN (Reason: for anxiety) Qty: 90 3RF metoclopramide HCl 10 mg tablet See Rx Instructions .ROUTE .COMPLEX Qty: 30 3RF Dose Instruction: take 1 tablet by mouth every 6 hours if needed for nausea and vomiting Rx Instructions: take 1 tablet by mouth every 6 hours if needed for nausea and vomiting atorvastatin 20 mg tablet See Rx Instructions .ROUTE .COMPLEX Qty: 90 3RF Dose Instruction: take 1 tablet by mouth once daily Rx Instructions: take 1 tablet by mouth once daily methocarbamol 500 mg tablet See Rx Instructions .ROUTE .COMPLEX Qty: 60 1RF Dose Instruction: take 1 tablet by mouth four times a day if needed back pain Rx Instructions: take 1 tablet by mouth four times a day if needed back pain semaglutide (weight loss) 0.25 mg/0.5 mL pen injector 0.5 mg SUBCUT QWEEK Qty: 4 0RF Rx Instructions: administer weeks 5 through 8 of therapy fluoxetine 20 mg capsule 60 mg PO DAILY Qty: 270 3RF sumatriptan succinate 50 mg tablet 50 mg PO Q2-4H PRN (Reason: migraine headache) Qty: 20 0RF ondansetron 4 mg tablet,disintegrating 4 mg PO Q6H PRN (Reason: nausea and vomiting) Qty: 40 0RF promethazine 25 mg suppository 25 mg AZ Q6H PRN (Reason: nausea and vomiting) Qty: 12 0RF hydrocodone-acetaminophen 5-325 mg tablet 1 tab PO Q6H PRN (Reason: pain) Qty: 30 0RF sulfamethoxazole-trimethoprim 800-160 mg tablet 1 tab PO Q12H Qty: 20 0RF Referrals: Susanna Rodarte MD [Primary Care Provider] - Stand Alone Forms: Patient Portal/API/Survey
[2024-12-20 09:16] LABS: Add Manual Diff / Slide Review NO; Basophils Absolute Auto 100 /uL (0-100); Basophils Percent Auto 0.8 % (0-2); Eosinophils Absolute Auto 100 /uL (0-450); Eosinophils Percent Auto 1.5 % (2-4); Hematocrit 42.4 % (36-46); Hemoglobin 14.3 g/dL (12.0-16.0); Lymphocytes Absolute Auto 2200 /uL (1100-4500); Lymphocytes Percent Auto 29.4 % (25-40); Mean Corpuscular HGB Conc 33.8 % (30-36); Mean Corpuscular Hemoglobin 30.5 PG (26-34); Mean Corpuscular Volume 90.1 fL (80-100); Monocytes Absolute Auto 900 /uL (0-900); Monocytes Percent Auto 11.3 % (3-14); Neutrophils Absolute Auto 4400 /uL (1500-7000); Platelet Count 477 X10^3/uL (150-400); Red Blood Cell Count 4.71 X10^6/uL (4.0-5.2); Red Cell Distribution Width 14.1 % (11.6-14.8); White Blood Cell Count 7.6 X10^3/uL (4.5-11.0)
--- NOTE | 2024-12-20 09:18 | DI.CT.S_ITS ---
PROCEDURE: CT ABDOMEN PELVIS W CON INDICATIONS: post gallbladder with fever TECHNIQUE: After the administration of intravenous contrast, axial sections acquired from the lung bases to the pubic symphysis. Coronal and sagittal reformats were performed. For radiation dose reduction, the following was used: automated exposure control, adjustment of mA and/or kV according to patient size. COMPARISON: [facility], CT, CT ABDOMEN PELVIS W CON, 10/23/2024, 9:45. FINDINGS: Image quality: Diagnostic. Lower Chest: No significant hiatal hernia is seen. There is a borderline prominent lymph node seen adjacent to the distal esophagus, as on series 2, image 25, measuring 11 x 8 mm. ABDOMEN: Liver: No solid mass. The liver is prominent in size and demonstrates diffuse fatty liver infiltration. Gallbladder: Cholecystectomy clips are seen. There is a mild degree of poorly defined fluid within the cholecystectomy bed. No abscess is seen. Rim calcified gallstones can be seen within the peritoneal cavity, adjacent to the posterior/inferior aspect of the liver, as on series 2, image 55 and on series 2 image 64. Biliary ducts: No biliary dilation. Pancreas: No ductal dilation. Spleen: Size is within normal limits. Adrenal Glands: No adrenal nodules. Kidneys and Ureters: No hydronephrosis. No solid mass. No complex renal cystic lesion which requires follow up. Stomach and Bowel: The previously seen colonic wall thickening is clearly improved compared to the prior examination, now with a mild degree of wall thickening and fatty metaplasia seen, particularly affecting the ascending colon and the transverse colon. There is mild wall thickening with fatty metaplasia is seen within the terminal ileum. Mild distal colonic diverticulosis is seen, without findings of active diverticulitis. No dilated loops of small bowel are seen. Peritoneum: No abnormal intraperitoneal fluid. No free air. Ventral Wall: No significant ventral hernia. Anterior abdominal wall postoperative change is seen. Abdominal Nodes: No retroperitoneal or mesenteric adenopathy by size criteria. Vessels: Aorta and inferior vena cava are normal in size. PELVIS: Pelvic Organs: No adnexal masses are seen on either side. Bladder: No bladder wall thickening, accounting for underdistention. Pelvic Nodes: No enlarged lymph nodes. Miscellaneous: No inguinal hernias are seen. Bones: No aggressive osseous abnormality. Mild dextroconvex scoliotic curvature is seen. Age-appropriate bony degenerative changes are seen. IMPRESSION: Status post cholecystectomy, with a mild degree free fluid seen within the cholecystectomy bed. This is seen. There are gallstones seen along the posterior inferior aspect of the liver within the peritoneal cavity. Improved colonic wall thickening since the prior examination, yet with a mild degree of wall thickening seen proximally. Fatty metaplasia can be seen involving the terminal ileum of the proximal colon. Please consider Crohn's disease versus chronic inflammatory change. Additional findings: Diverticulosis, without active diverticulitis Note: Case discussed by telephone with Dr. Watkins at 10:01 a.m. on December 20, 2024. Dictated by: Bernardo Valdez M.D. on 12/20/2024 at 8:57 Approved by: Bernardo Valdez M.D. on 12/20/2024 at 9:04
[2024-12-20 09:23] LABS: Alanine Aminotransferase 68 IU/L (<35); Albumin 4.5 g/dL (3.5-5.0); Albumin Globulin Ratio 1.1 (1.0-2.8); Alkaline Phosphatase 168 U/L (38-126); Aspartate Aminotransferase 52 IU/L (14-36); BUN Creatinine Ratio 11.5 (6-22); Bilirubin Total 0.6 mg/dL (0.2-1.3); Blood Urea Nitrogen 10 mg/dL (7-17); Calcium 9.9 mg/dL (8.4-10.2); Carbon Dioxide 17 mmol/L (22-32); Chloride 106 mmol/L (98-107); Estimated Glomerular Filt Rate > 60 mL/min (>60); Globulin 4.2 g/dL (1.7-4.1); Glucose 112 mg/dL (70-99); HEMOLYSIS < 15 (0-50); Lipase 151 U/L (23-300); Potassium 3.9 mmol/L (3.4-5.1); Sodium 138 mmol/L (137-145); Total Protein 8.7 g/dL (6.3-8.2)
[2024-12-20 09:24] LABS: Lactate (Lactic Acid) 2.5 mmol/L (0.7-2.1)
[2024-12-20] MEDS: KETOROLAC 30 MG/ML VIAL 15 MG IV (09:29)
[2024-12-20] MEDS: cefTRIAXone 1,000 MG in SODIUM CHLORIDE 0.9% 100 ML 200 MG IV (09:29)
[2024-12-20] MEDS: SODIUM CHLORIDE 0.9% 1,000 ML 1000 ML IV ×2 (09:29→10:46)
[2024-12-20 09:46] LABS: Procalcitonin 0.106 ng/mL (<0.5)
[2024-12-20 10:00] LABS: Ictotest Urine Negative (Negative)
[2024-12-20 10:01] LABS: Urine Volume 10mL (spun)
[2024-12-20 10:02] LABS: Bacteria Urine None Seen; Culture Indicated Urine Specimen Cultured; RBC Urine None Seen (0-5/HPF); Squamous Epithelial Cell Urine 1-5 /HPF (0-5/HPF); WBC Urine 1-5/HPF (0-5/HPF)
[2024-12-20] MEDS: LORazepam 0.5 MG TABLET 1 MG PO (10:45)
--- NOTE | 2024-12-20 10:51 | PC.NURSE ---
Pt given vitaliy damaris for PO challenge.
[2024-12-20 10:52] LABS: Reflexed Lactate in 2 Hours Y
== END 2024-12-20 12:08 | disposition home or self-care (01) ==
PROVIDERS: Emergency Provider Emergency Medicine; PCP Family Medicine; Referring Provider Family Medicine
DX: N39.0 Urinary tract infection, site not specified (principal); R10.9 Unspecified abdominal pain; G89.18 Other acute postprocedural pain; B37.0 Candidal stomatitis; Z90.49 Acquired absence of other specified parts of digestive tract
CPT/HCPCS: 36415; 74177; 80053; 81003; 81015; 83605; 83690; 84145; 85025; 87040; 87086; 93005; 93010; 96361; 96365; 96375; 99284; J0696; J1885; J2405; Q9967

== ENCOUNTER 2025-03-08 08:45 | Day surgery (SDC) | payer OTHER, SELFPAY ==
[2024-12-12 16:39] VITALS: BMI 31.6
--- NOTE | 2025-03-08 09:26 | PM.HP.IH.1 ---
History of Present Illness History of Present Illness Date Patient Seen: 03/08/25 Chief complaint: Screening Colonoscopy Narrative: For screening colonoscopy. In addition, around the time of cholecystectomy, there were issues on CT scan possibly involving colonic wall thickening proximally. This had improved on follow-up CT scan but not gone away completely. Need to follow-up with colonoscopy to rule out underlying colitis. [facility] Medical History (Updated 02/23/25 @ 08:26 by Susanna Rodarte MD) Cholelithiasis Anxiety with depression Diverticulosis of large intestine (~04/2017) Irregular menstrual cycle (2007) Ovarian cyst (2005) ADHD (attention deficit hyperactivity disorder) (2007) Generalized headaches Migraines Restless leg syndrome (2013) Chronic back pain Scoliosis Fractures Surgical History (Updated 02/23/25 @ 08:26 by Susanna Rodarte MD) Status post cholecystectomy No history of previous surgery Family History Father No problems noted. Mother No problems noted. Social History household members: spouse and children alcohol intake: current Meds Home Medications and Allergies Home Medications ?Medication ?Instructions ?Recorded ?Confirmed ?Type omeprazole 20 mg capsule,delayed 20 mg PO DAILY 04/04/22 02/23/25 History release propranolol 10 mg tablet 10 mg PO 3XD PRN for anxiety #90 09/22/24 02/23/25 Rx tabs ropinirole 2 mg tablet 4 mg (2 x 2 mg) PO BEDTIME #180 09/22/24 02/23/25 Rx tabs promethazine 25 mg rectal 25 mg [place] Q6H PRN nausea and 10/23/24 02/23/25 Rx suppository vomiting #12 ea sulfamethoxazole 800 1 tab PO Q12H #20 tabs 12/14/24 02/23/25 Rx mg-trimethoprim 160 mg tablet ondansetron 4 mg disintegrating 4 mg PO Q6H PRN nausea and 12/18/24 02/23/25 Rx tablet vomiting #40 tabs nystatin 100,000 unit/mL oral 1 ml PO DAILY #60 mL 12/20/24 02/23/25 Rx suspension tramadol 50 mg tablet 50 mg PO Q6H PRN pain #14 tabs 12/20/24 02/23/25 Rx atorvastatin 20 mg tablet See Rx Instructions .Route 01/22/25 02/23/25 Rx .COMPLEX #90 tabs methocarbamol 500 mg tablet See Rx Instructions .Route 01/22/25 02/23/25 Rx .COMPLEX #60 tabs semaglutide (weight loss) 0.25 0.5 mg SUBCUT QWEEK #4 mL 02/16/25 02/23/25 Rx mg/0.5 mL subcutaneous pen injector fluoxetine 20 mg capsule 60 mg (3 x 20 mg) PO DAILY #270 03/01/25 Rx caps gabapentin 300 mg capsule 600 mg (2 x 300 mg) PO BEDTIME 03/01/25 Rx #180 caps metoclopramide HCl 10 mg tablet See Rx Instructions .Route 03/01/25 Rx .COMPLEX #30 tabs sumatriptan succinate 50 mg tablet 50 mg PO Q2-4H PRN migraine 03/01/25 Rx headache #20 tabs Allergies Allergy/AdvReac Type Severity Reaction Status Date / Time amoxapine (AMOXAPINE) Allergy Intermediate Verified 03/08/25 09:27 penicillin G (PENICILLIN G) Allergy Unknown cillin Verified 03/08/25 09:27 family Exam Narrative Exam Narrative: Oropharynx free of lesion Assessment & Plan Assessment & Plan narrative: For screening colonoscopy. Also, abnormal CT scan rule out underlying colitis Time-Based Coding :: [TOTAL MINUTES] spent with patient and on the chart (including review of chart, obtaining history, exam, reviewing outside data, placing orders, documenting exam and treatment plan, and counseling patient) on [DATE]. [employer] Document charge(s): No
--- NOTE | 2025-03-08 09:28 | PM.OP.COLON ---
Operative Date/Time/Diagnoses Date of procedure: 03/08/25 Time of procedure: 09:43 Pre-op diagnosis: See indication and findings Post-op diagnosis: same Procedure & Clinicians Study performed: Colonoscopy Same procedure(s) as scheduled: Yes Indications: Screening colonoscopy and abnormal CT scan. Surgeon: Justino Blue Anesthesia Type: Other Procedure Notes Procedure in detail: After informed consent was obtained the patient was placed in left lateral decubitus position. Video colonoscope was introduced the rectum slowly advanced cecum. Preparation was good. On slow withdrawal mucosa was carefully examined. The scope was removed. The patient tolerated procedure well. Blood loss none Complications none Sedation mac Findings 1. Normal esophagus 2. Normal squamocolumnar junction 3. Patchy gastric erythema in the antrum biopsies taken to rule out Helicobacter 4. Normal duodenal bulb and sweep I suspect her biopsies will be negative. Treatment should be only based on therapy with intermittent H2 adalebrto such as famotidine which can be purchased [id number].
[2025-03-08 09:43] VITALS: BP 98/52; PULSE 65; RESP 16; TEMP 36.1; O2SAT 93
[2025-03-08] MEDS: LACTATED RINGERS 1,000 ML 42 ML IV (09:43)
[2025-03-08 10:12] VITALS: BP 101/70; PULSE 80; RESP 30; TEMP 36.2; O2SAT 96
[2025-03-08 10:15] VITALS: BP 100/69; PULSE 75; RESP 19; O2SAT 92
--- NOTE | 2025-03-08 10:16 | PM.OP.COLON ---
Operative Date/Time/Diagnoses Date of procedure: 03/08/25 Time of procedure: 10:17 Pre-op diagnosis: See indication and findings Post-op diagnosis: same Procedure & Clinicians Study performed: Colonoscopy Same procedure(s) as scheduled: Yes Indications: For screening colonoscopy and history of mild colonic thickening on CT scan, improving Anesthesia Type: Other Procedure Notes Procedure in detail: After informed consent was obtained the patient was placed in left lateral decubitus position. The video colonoscope was introduced the rectum and slowly advanced cecum. Preparation was good. On slow withdrawal mucosa was carefully examined. The scope was removed. The patient tolerated procedure well. Blood loss none Complications none Sedation mac Findings 1. Normal colonoscopy to cecum There is no evidence any residual mucosal thickening or abnormality. Patient should have follow-up colonoscopy in 10 years.
[2025-03-08 10:20] VITALS: BP 98/66; PULSE 68; RESP 27; TEMP 36.2; O2SAT 92
[2025-03-08 10:25] VITALS: BP 98/71; PULSE 68; RESP 20; TEMP 36.3; O2SAT 93
== END 2025-03-08 10:39 | disposition home or self-care (01) ==
PROVIDERS: PCP Family Medicine; Referring Provider Internal Medicine Gastroenterology; Visit Provider Internal Medicine Gastroenterology
PROC: 0DJD8ZZ Inspection of Lower Intestinal Tract, Via Natural or Artificial Opening Endoscopic (ICD-10-PCS; CPT 45378; principal; 2025-03-08 10:00)
DX: Z12.11 Encounter for screening for malignant neoplasm of colon (principal)
CPT/HCPCS: 45378; J2405; J2704

== ENCOUNTER 2025-06-02 06:46 | Emergency (ER) | payer OTHER, SELFPAY ==
[2024-12-12 16:39] VITALS: BMI 31.6
[2025-06-02] VITALS (14 sets, daily range): BP systolic 113–175; BP diastolic 57–100; PULSE 59–93; RESP 17–37; TEMP 35.1; O2SAT 92–100; BMI 26.5
[2025-06-02] MEDS: ONDANSETRON 4 MG/2 ML INJ IV (07:20)
--- NOTE | 2025-06-02 07:22 | ED.NAVMDI ---
HPI - Nausea/Vomiting/Diarrhea General Chief complaint: Abdominal Pain Stated complaint: can't stop vomiting, stomach pain Time Seen by Provider: 06/02/25 07:06 Source: patient and family Mode of arrival: Wheelchair History of Present Illness HPI Narrative: Patient here for fever body aches chills nausea or vomiting. Patient denies any sick contacts. No urinary complaints. She states she has pain from her head down to her feet. Has generalized abdominal pain. Patient is diaphoretic. Denies any recent chest pain shortness of breath. 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 No recent foreign travel. Related Data Home Medications ?Medication ?Instructions ?Recorded ?Confirmed omeprazole 20 mg capsule,delayed 20 mg PO DAILY 04/04/22 05/24/25 release Previous Rx's ?Medication ?Instructions ?Recorded promethazine 25 mg rectal 25 mg MT Q6H PRN nausea and 10/23/24 suppository vomiting #12 ea ondansetron 4 mg disintegrating 4 mg PO Q6H PRN nausea and 12/18/24 tablet vomiting #40 tabs semaglutide (weight loss) 0.25 0.5 mg SUBCUT QWEEK #4 mL 02/16/25 mg/0.5 mL subcutaneous pen injector sumatriptan succinate 50 mg tablet 50 mg PO Q2-4H PRN migraine 04/16/25 headache #20 tabs metoclopramide HCl 10 mg tablet See Rx Instructions .Route 04/26/25 .COMPLEX #30 tabs gabapentin 300 mg capsule 600 mg (2 x 300 mg) PO BEDTIME 05/03/25 #180 caps methocarbamol 500 mg tablet See Rx Instructions .Route 05/03/25 .COMPLEX #60 tabs atorvastatin 20 mg tablet See Rx Instructions .Route 05/24/25 .COMPLEX #90 tabs methylphenidate HCl 10 mg tablet 10 mg PO BID #60 tabs 05/24/25 (Ritalin) propranolol 10 mg tablet 10 mg PO 3XD PRN for anxiety #90 05/24/25 tabs fluoxetine 20 mg capsule 60 mg (3 x 20 mg) PO DAILY #270 05/31/25 caps ondansetron 4 mg disintegrating 4 mg PO Q6H PRN nausea and 06/02/25 tablet vomiting #20 tabs Allergies Allergy/AdvReac Type Severity Reaction Status Date / Time amoxapine (AMOXAPINE) Allergy Intermediate Verified 06/02/25 06:50 penicillin G (PENICILLIN G) Allergy Unknown cillin Verified 06/02/25 06:50 family Review of Systems Review of Systems Narrative: GENERAL: Positive chills, fatigue, malaise, fever, sweats. HEENT: Negative sinus pain, ear pain, sore throat RESPIRATORY: Negative dyspnea, cough CARDIOVASCULAR: Negative chest pain, palpitations GASTROINTESTINAL: Positive Negative vomiting, nausea, abdominal pain : Negative dysuria, frequency, hematuria MUSCULOSKELETAL: Positive muscle or bony pain SKIN: Negative rash, skin lesions NEUROLOGIC: Negative weakness, numbness ROS Unobtainable: All systems reviewed & are unremarkable except as noted in HPI and below Patient History Medical History (Updated 06/02/25 @ 10:50 by Anthony Mead MD) Cholelithiasis Anxiety with depression Diverticulosis of large intestine (~04/2017) Irregular menstrual cycle (2007) Ovarian cyst (2005) ADHD (attention deficit hyperactivity disorder) (2007) Generalized headaches Migraines Restless leg syndrome (2013) Chronic back pain Scoliosis Fractures Surgical History (Updated 02/23/25 @ 08:26 by Susanna Rodarte MD) Status post cholecystectomy No history of previous surgery Family History Father No problems noted. Mother No problems noted. Social History household members: spouse and children alcohol intake: current Smoking Status: Former smoker tobacco type: cigarettes Alcohol type: beer Exam Narrative Exam Narrative: GENERAL: in mild distress, not toxic not dyspneic, is diaphoretic HEAD: Normocephalic. EYES: Pupils equal round ENT: Mucous membranes moist. NECK: Trachea midline. CARDIOVASCULAR: Regular rate and rhythm RESPIRATORY: Clear to auscultation. Breath sounds equal bilaterally. No wheezes, rales, or rhonchi. GASTROINTESTINAL: Abdomen soft, non-tender, abdomen is soft nontender no peritoneal signs no guarding or rebound. Bowel sounds are present. EXTREMITIES: No gross deformities. BACK: No flank tenderness. NEURO: AOx4. Clear speech SKIN: Warm and dry PSYCH: Patient is anxious, Initial Vital Signs Initial Vital Signs: Vital Signs Temperature 95.1 F L 06/02/25 06:50 Pulse Rate 72 06/02/25 06:50 Respiratory Rate 20 06/02/25 06:50 Pulse Oximetry 100 06/02/25 06:50 Oxygen Delivery Method Room Air 06/02/25 06:50 Course Orders Ordered: Discontinued Medications Hydromorphone HCl (Hydromorphone 1 Mg/Ml Syringe) 1 mg IV NOW ONE Stop: 06/02/25 07:18 Last Admin: 06/02/25 07:20 Dose: 1 mg Documented By: KEANU Sodium Chloride (Normal Saline 0.9%) 1,000 mls @ 1,000 mls/hr IV BOLUS ONE Stop: 06/02/25 08:22 Last Infusion: 06/02/25 09:11 Dose: Infused Documented By: Admin: 06/02/25 07:36 Dose: 1,000 mls/hr Documented By: KEANU Sodium Chloride (Normal Saline 0.9%) 1,000 mls @ 1,000 mls/hr IV BOLUS ONE Stop: 06/02/25 08:52 Last Infusion: 06/02/25 09:26 Dose: Infused Documented By: Admin: 06/02/25 08:37 Dose: 1,000 mls/hr Documented By: KEANU Ondansetron HCl (Ondansetron 4 Mg/2 Ml Inj) 4 mg IV NOW PRN PRN Reason: Nausea And Vomiting Last Admin: 06/02/25 07:20 Dose: 4 mg Documented By: KEANU Ondansetron HCl (Ondansetron 4 Mg Odt) 4 mg PO NOW PRN PRN Reason: Nausea And Vomiting Prochlorperazine (Prochlorperazine 10 Mg/2 Ml Vial) 10 mg IV NOW ONE Stop: 06/02/25 07:55 Last Admin: 06/02/25 07:58 Dose: 10 mg Documented By: KEANU Vital Signs Vital signs: Vital Signs - 8 hr 06/02/25 11:03 Oxygen Delivery Method Room Air MDM - Nausea/Vomiting/Diarrhea Lab Data 06/02/25 07:05 06/02/25 09:38 Labs: Lab Results 06/02/25 06/02/25 06/02/25 Range/Units 07:05 07:32 08:31 WBC 10.2 (4.5-11.0) X10^3/uL RBC 4.79 (4.0-5.2) X10^6/uL Hgb 14.6 (12.0-16.0) g/dL Hct 41.8 (36-46) % MCV 87.2 (80-100) fL MCH 30.5 (26-34) PG MCHC 35.0 (30-36) % RDW 14.0 (11.6-14.8) % Plt Count 433 H (150-400) X10^3/uL Neut % (Auto) 60.0 (50-75) % Lymph % (Auto) 31.3 (25-40) % [place] % (Auto) 7.2 (3-14) % Eos % (Auto) 0.9 L (2-4) % Baso % (Auto) 0.6 (0-2) % Neut # (Auto) 6100 (8897-8470) /uL Lymph # (Auto) 3200 (8648-2206) /uL [place] # (Auto) 700 (0-900) /uL Eos # (Auto) 100 (0-450) /uL Baso # (Auto) 100 (0-100) /uL VBG pH 7.50 H (7.33-7.43) VBG pCO2 22.8 L (45-50) mmHg VBG pO2 39 (35-45) mmHg VBG HCO3 18 L (24-28) mmol/L VBG Total CO2 17 L (24-29) mmol/L VBG O2 Saturation 80 H (70-75) % VBG Base Excess -3.7 L (0-4) mmol/L Sodium 137 (137-145) mmol/L Potassium 3.7 (3.4-5.1) mmol/L Chloride 108 H (98-107) mmol/L Carbon Dioxide 8 L* (22-32) mmol/L BUN 10 (7-17) mg/dL Creatinine 0.83 (0.52-1.04) mg/dL Estimated GFR > 60 (>60) mL/min BUN/Creatinine Ratio 12.0 (6-22) Glucose 204 H (70-99) mg/dL Hemoglobin A1c 5.7 (4.0-6.0) % Calcium 10.2 (8.4-10.2) mg/dL Total Bilirubin 0.9 (0.2-1.3) mg/dL AST 34 (14-36) IU/L ALT 27 (<35) IU/L Alkaline Phosphatase 147 H (38-126) U/L Total Protein 9.0 H (6.3-8.2) g/dL Albumin 5.0 (3.5-5.0) g/dL Globulin 4.0 (1.7-4.1) g/dL Albumin/Globulin Ratio 1.3 (1.0-2.8) Lipase 103 (23-300) U/L Ketones 0.91 H (<0.27) mmol/L Chlamy pneumoniae PCR Not detected (Not Detect) Adenovirus (PCR) Not detected (Not Detect) B. pertussis DNA (PCR) Not detected (Not Detect) B.parapertussis DNA PCR Not detected (Not Detecte) Coronavirus OC43 (PCR) Not detected (Not Detect) Coronavirus HKU1 (PCR) Not detected (Not Detect) Coronavirus 229E (PCR) Not detected (Not Detect) SARS-CoV-2 (PCR) Not detected (Not Detecte) Coronavirus NL63 (PCR) Not detected (Not Detect) Human Metapneumovir PCR Not detected (Not Detect) Influenza Type A (PCR) Not detected (Not Detect) Influenza Type B (PCR) Not detected (Not Detect) M. pneumoniae (PCR) Not detected (Not Detect) Parainfluenza 1 (PCR) Not detected (Not Detect) Parainfluenza 2 (PCR) Not detected (Not Detect) Parainfluenza 3 (PCR) Not detected (Not Detect) Parainfluenza 4 (PCR) Not detected (Not Detect) RSV (PCR) Not detected (Not Detect) Entero/Rhino (PCR) Not detected (Not Detect) 06/02/25 Range/Units 09:38 WBC (4.5-11.0) X10^3/uL RBC (4.0-5.2) X10^6/uL Hgb (12.0-16.0) g/dL Hct (36-46) % MCV (80-100) fL MCH (26-34) PG MCHC (30-36) % RDW (11.6-14.8) % Plt Count (150-400) X10^3/uL Neut % (Auto) (50-75) % Lymph % (Auto) (25-40) % [place] % (Auto) (3-14) % Eos % (Auto) (2-4) % Baso % (Auto) (0-2) % Neut # (Auto) (1850-5389) /uL Lymph # (Auto) (3319-2701) /uL [place] # (Auto) (0-900) /uL Eos # (Auto) (0-450) /uL Baso # (Auto) (0-100) /uL VBG pH (7.33-7.43) VBG pCO2 (45-50) mmHg VBG pO2 (35-45) mmHg VBG HCO3 (24-28) mmol/L VBG Total CO2 (24-29) mmol/L VBG O2 Saturation (70-75) % VBG Base Excess (0-4) mmol/L Sodium 139 (137-145) mmol/L Potassium 3.7 (3.4-5.1) mmol/L Chloride 111 H (98-107) mmol/L Carbon Dioxide 19 L (22-32) mmol/L BUN 10 (7-17) mg/dL Creatinine 0.75 (0.52-1.04) mg/dL Estimated GFR > 60 (>60) mL/min BUN/Creatinine Ratio 13.3 (6-22) Glucose 127 H (70-99) mg/dL Hemoglobin A1c (4.0-6.0) % Calcium 8.5 (8.4-10.2) mg/dL Total Bilirubin 0.7 (0.2-1.3) mg/dL AST 27 (14-36) IU/L ALT 20 (<35) IU/L Alkaline Phosphatase 103 (38-126) U/L Total Protein 7.1 (6.3-8.2) g/dL Albumin 4.0 (3.5-5.0) g/dL Globulin 3.1 (1.7-4.1) g/dL Albumin/Globulin Ratio 1.3 (1.0-2.8) Lipase (23-300) U/L Ketones (<0.27) mmol/L Chlamy pneumoniae PCR (Not Detect) Adenovirus (PCR) (Not Detect) B. pertussis DNA (PCR) (Not Detect) B.parapertussis DNA PCR (Not Detecte) Coronavirus OC43 (PCR) (Not Detect) Coronavirus HKU1 (PCR) (Not Detect) Coronavirus 229E (PCR) (Not Detect) SARS-CoV-2 (PCR) (Not Detecte) Coronavirus NL63 (PCR) (Not Detect) Human Metapneumovir PCR (Not Detect) Influenza Type A (PCR) (Not Detect) Influenza Type B (PCR) (Not Detect) M. pneumoniae (PCR) (Not Detect) Parainfluenza 1 (PCR) (Not Detect) Parainfluenza 2 (PCR) (Not Detect) Parainfluenza 3 (PCR) (Not Detect) Parainfluenza 4 (PCR) (Not Detect) RSV (PCR) (Not Detect) Entero/Rhino (PCR) (Not Detect) Urine Dip Bedside Urine Glucose Negative Bedside Urine Bilirubin - Negative Bedside Urine Ketone ++ 40 Urine Specific [place] 1.010 Bedside Urine Occult Blood - Negative Bedside Urine pH 6.5 Bedside Urine Protein - Negative Bedside Urine Urobilinogen - Negative Bedside Urine Nitrite - Negative Bedside Urine Leukocytes - Negative Esterase Imaging Data CT scan - abdomen/pelvis: Radiologist's Impression: [address] [address] [address] Scan Report Signed Patient: Jackelyn Arteaga MR#: [id number] : 1975 Acct:[id number] Age/Sex: 50 / F Date of Service: 06/02/25 Loc: ED Accession Number: [id number] Procedure: CT abdomen pelvis w con Ordering Provider: Anthony Mead MD PROCEDURE: CT ABDOMEN PELVIS W CON INDICATIONS: Abdominal pain TECHNIQUE: After the administration of intravenous contrast, axial sections acquired from the lung bases to the pubic symphysis. Coronal and sagittal reformats were performed. For radiation dose reduction, the following was used: automated exposure control, adjustment of mA and/or kV according to patient size. COMPARISON: [facility], US, US ABDOMEN LIMITED, 12/12/2024, 13:14. [facility], CT, CT ABDOMEN PELVIS W CON, 10/23/2024, 9:45. [facility], CT, CT ABDOMEN PELVIS W CON, 12/20/2024, 9:29. [facility], CT, CT ABDOMEN PELVIS W CON, 04/13/2025, 8:22. FINDINGS: Image quality: Diagnostic. Lower Chest: No significant findings. ABDOMEN: Liver: No solid mass. Gallbladder: Absent Biliary ducts: No biliary dilation. Pancreas: No ductal dilation. Spleen: Size is within normal limits. Adrenal Glands: No adrenal nodules. Kidneys and Ureters: No hydronephrosis. No solid mass. No complex renal cystic lesion which requires follow up. Stomach and Bowel: Normal colonic caliber, without significant wall thickening. Mild diverticulosis. Fatty replacement of the wall of the: Involving most of the colon, from the cecum into the sigmoid, is consistent with response to chronic inflammation. Peritoneum: There is a collection of gallstones present along the inferior medial aspect of the liver which were noted on the study from 12/20/2024. The gallstones are now less distinct, and there has been development of inflammatory reaction related to these gallstones which was not evident on the 1st study, but was clearly developing on the 2nd study. It is relatively similar in appearance on this study. Reference current axial image 65 of series 2, in which the inflammation and resultant soft tissue density measures approximately 5.2 x 6.9 cm. No abnormal intraperitoneal fluid. No free air. Ventral Wall: No significant ventral hernia. Abdominal Nodes: No retroperitoneal or mesenteric adenopathy by size criteria. Vessels: Aorta and inferior vena cava are normal in size. PELVIS: Pelvic Organs: Unremarkable. Bladder: No bladder wall thickening, accounting for underdistention. Pelvic Nodes: No enlarged lymph nodes. Miscellaneous: No inguinal hernias are seen. Bones: No aggressive osseous abnormality. IMPRESSION: Apparently the patient had developed acute cholecystitis at some point, resulting in cholecystectomy. However, gallstones at some point were released into the peritoneal cavity. This has resulted in an inflammatory reaction which is seen subjacent to the posterior segment of the right lobe of the liver. This inflammatory reaction has been present for greater than 7 weeks. Comment: If suspect that this process is infected, it would be amenable to percutaneous CT-guided biopsy for culture. Dictated by: Mark Faustin M.D. on 06/02/2025 at 8:37 Approved by: Mark Faustin M.D. on 06/02/2025 at 8:52 MDM Narrative Medical decision making narrative: Patient here for fever body aches chills nausea or vomiting. Patient denies any sick contacts. No urinary complaints. She states she has pain from her head down to her feet. Has generalized abdominal pain. Patient is diaphoretic. Denies any recent chest pain shortness of breath. 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 No recent foreign travel. MDM After history and exam, CBC CMP lipase urinalysis respiratory panel Dilaudid Zofran normal saline, CT abdomen pelvis Differential considered: Includes but not limited to COVID influenza parainfluenza rhino virus, sepsis, UTI choledocholithiasis pancreatitis, colitis Medical records reviewed: April 13, 2025 ER visit here Lab Test results independently reviewed as above. Pertinent findings: WBC 10.2 hemoglobin 14.6 sodium 137 potassium 3.7 bicarb 8 BUN 10 creatinine 0.83 glucose 204 AST 34 ALT 27 lipase 103 Anion gap 21, respiratory panel negative Repeat CMP sodium 139 potassium 3.7 bicarb 19 BUN 10 creatinine 0.75 glucose 127 hemoglobin A1c 5.7 Imaging studies independently reviewed: CT abdomen pelvis, gallstones in liver area, status post cholecystectomy Consultations: 9:03 a.m.. Spoke with general surgery Dr. Urrutia, he will review CT imaging regarding gallstones in the peritoneum. 10:51 a.m.. General surgery has reviewed CT imaging and place consult for patient. No further workup indicated. No admission or surgery needed. No GI intervention services indicated at this time. Patient is feeling much better. Patient has been hyperventilating into a paper bag likely causing laboratory studies changes. Re-evaluations: 10:52 a.m.. Patient feeling much better. No abdominal pain. Could not provide stool sample. No vomiting. No nausea. She is pleased to have had conversation with the general surgeon. Results explained to her. No surgery or admission indicated this time. She feels very comfortable with discharge home. She is calling for a ride. Return precautions reviewed she desires discharge home. Discussion: Appropriate for discharge home. Exam is reassuring. IV contrast used for CT imaging. Return precautions reviewed. General surgery saw patient here in consult. No admission indicated no procedures indicated. She is feeling much better. She she desires discharge home. No chest pain no shortness of breath. No EKG or troponin indicated at this time. Diagnosis: Gastroenteritis Discharge Plan Departure Patient Disposition: Home Clinical Impression: Gastroenteritis Instructions: DI for Abdominal Pain-Adult, DI for Diarrhea and Traveler's Diarrhea -- Adult, Nausea and Vomiting-Adult Activity Restrictions/Additional Instructions: I am glad you are feeling better. No driving operating machinery today. Please discontinue your Reglan medication/metoclopramide, Zofran has been prescribed for you. See your family doctor in a week for re-evaluation. Your laboratory studies and CAT scan imaging studies are reassuring and have been reviewed by General surgery today. Return if worse if any questions or concerns. Prescriptions: New ondansetron 4 mg tablet,disintegrating 4 mg PO Q6H PRN (Reason: nausea and vomiting) Qty: 20 0RF No Action omeprazole 20 mg capsule,delayed release(DR/EC) 20 mg PO DAILY atorvastatin 20 mg tablet See Rx Instructions .ROUTE .COMPLEX Qty: 90 3RF Dose Instruction: take 1 tablet by mouth once daily Rx Instructions: take 1 tablet by mouth once daily propranolol 10 mg tablet 10 mg PO 3XD PRN (Reason: for anxiety) Qty: 90 3RF methylphenidate HCl [Ritalin] 10 mg tablet 10 mg PO BID Qty: 60 0RF ondansetron 4 mg tablet,disintegrating 4 mg PO Q6H PRN (Reason: nausea and vomiting) Qty: 40 0RF semaglutide (weight loss) 0.25 mg/0.5 mL pen injector 0.5 mg SUBCUT QWEEK Qty: 4 0RF Rx Instructions: administer weeks 5 through 8 of therapy sumatriptan succinate 50 mg tablet 50 mg PO Q2-4H PRN (Reason: migraine headache) Qty: 20 0RF metoclopramide HCl 10 mg tablet See Rx Instructions .ROUTE .COMPLEX Qty: 30 3RF Dose Instruction: take 1 tablet by mouth every 6 hours if needed for nausea and vomiting Rx Instructions: take 1 tablet by mouth every 6 hours if needed for nausea and vomiting methocarbamol 500 mg tablet See Rx Instructions .ROUTE .COMPLEX Qty: 60 1RF Dose Instruction: take 1 tablet by mouth four times a day if needed back pain Rx Instructions: take 1 tablet by mouth four times a day if needed back pain gabapentin 300 mg capsule 600 mg PO BEDTIME Qty: 180 3RF fluoxetine 20 mg capsule 60 mg PO DAILY Qty: 270 3RF promethazine 25 mg suppository 25 mg MT Q6H PRN (Reason: nausea and vomiting) Qty: 12 0RF Referrals: Susanna Rodarte MD [Primary Care Provider, Family Practice] Stand Alone Forms: Patient Portal/API, Work Release Note
[2025-06-02 07:24] LABS: Add Manual Diff / Slide Review NO; Hematocrit 41.8 % (36-46); Hemoglobin 14.6 g/dL (12.0-16.0); Lymphocytes Absolute Auto 3200 /uL (1100-4500); Mean Corpuscular HGB Conc 35.0 % (30-36); Mean Corpuscular Hemoglobin 30.5 PG (26-34); Mean Corpuscular Volume 87.2 fL (80-100); Platelet Count 433 X10^3/uL (150-400)
[2025-06-02 07:28] LABS: Alanine Aminotransferase 27 IU/L (<35); Albumin 5.0 g/dL (3.5-5.0); Albumin Globulin Ratio 1.3 (1.0-2.8); Alkaline Phosphatase 147 U/L (38-126); Blood Urea Nitrogen 10 mg/dL (7-17); Calcium 10.2 mg/dL (8.4-10.2); Chloride 108 mmol/L (98-107); Estimated Glomerular Filt Rate > 60 mL/min (>60); Globulin 4.0 g/dL (1.7-4.1); Glucose 204 mg/dL (70-99); HEMOLYSIS < 15 (0-50); Lipase 103 U/L (23-300); Potassium 3.7 mmol/L (3.4-5.1); Sodium 137 mmol/L (137-145); Total Protein 9.0 g/dL (6.3-8.2)
[2025-06-02 07:29] LABS: Carbon Dioxide 8 mmol/L (22-32)
[2025-06-02] MEDS: SODIUM CHLORIDE 0.9% 1,000 ML 1000 ML IV ×2 (07:36→08:37)
[2025-06-02] MEDS: PROCHLORPERAZINE 10 MG/2 ML VIAL IV (07:58)
--- NOTE | 2025-06-02 08:16 | DI.CT.S_ITS ---
PROCEDURE: CT ABDOMEN PELVIS W CON INDICATIONS: Abdominal pain TECHNIQUE: After the administration of intravenous contrast, axial sections acquired from the lung bases to the pubic symphysis. Coronal and sagittal reformats were performed. For radiation dose reduction, the following was used: automated exposure control, adjustment of mA and/or kV according to patient size. COMPARISON: [facility], US, US ABDOMEN LIMITED, 12/12/2024, 13:14. [facility], CT, CT ABDOMEN PELVIS W CON, 10/23/2024, 9:45. [facility], CT, CT ABDOMEN PELVIS W CON, 12/20/2024, 9:29. [facility], CT, CT ABDOMEN PELVIS W CON, 04/13/2025, 8:22. FINDINGS: Image quality: Diagnostic. Lower Chest: No significant findings. ABDOMEN: Liver: No solid mass. Gallbladder: Absent Biliary ducts: No biliary dilation. Pancreas: No ductal dilation. Spleen: Size is within normal limits. Adrenal Glands: No adrenal nodules. Kidneys and Ureters: No hydronephrosis. No solid mass. No complex renal cystic lesion which requires follow up. Stomach and Bowel: Normal colonic caliber, without significant wall thickening. Mild diverticulosis. Fatty replacement of the wall of the: Involving most of the colon, from the cecum into the sigmoid, is consistent with response to chronic inflammation. Peritoneum: There is a collection of gallstones present along the inferior medial aspect of the liver which were noted on the study from 12/20/2024. The gallstones are now less distinct, and there has been development of inflammatory reaction related to these gallstones which was not evident on the 1st study, but was clearly developing on the 2nd study. It is relatively similar in appearance on this study. Reference current axial image 65 of series 2, in which the inflammation and resultant soft tissue density measures approximately 5.2 x 6.9 cm. No abnormal intraperitoneal fluid. No free air. Ventral Wall: No significant ventral hernia. Abdominal Nodes: No retroperitoneal or mesenteric adenopathy by size criteria. Vessels: Aorta and inferior vena cava are normal in size. PELVIS: Pelvic Organs: Unremarkable. Bladder: No bladder wall thickening, accounting for underdistention. Pelvic Nodes: No enlarged lymph nodes. Miscellaneous: No inguinal hernias are seen. Bones: No aggressive osseous abnormality. IMPRESSION: Apparently the patient had developed acute cholecystitis at some point, resulting in cholecystectomy. However, gallstones at some point were released into the peritoneal cavity. This has resulted in an inflammatory reaction which is seen subjacent to the posterior segment of the right lobe of the liver. This inflammatory reaction has been present for greater than 7 weeks. Comment: If suspect that this process is infected, it would be amenable to percutaneous CT-guided biopsy for culture. Dictated by: Mark Faustin M.D. on 06/02/2025 at 8:37 Approved by: Mark Faustin M.D. on 06/02/2025 at 8:52
[2025-06-02 08:24] LABS: Coronavirus NL 63 Not Detected (Not Detect); SARS- CoV-2 Not Detected (Not Detecte)
[2025-06-02 08:37] LABS: Base Excess VBG -3.7 mmol/L (0-4); HCO3 VBG 18 mmol/L (24-28); Oxygen Saturation VBG 80 % (70-75); PCO2 VBG 22.8 mmHg (45-50); PO2 VBG 39 mmHg (35-45); Total CO2 VBG 17 mmol/L (24-29); pH VBG 7.50 (7.33-7.43)
--- NOTE | 2025-06-02 08:41 | PC.NURSE ---
Pt states she is starting to feel better after medications and coming back from CT. Breathing has become WNL. Lungs clear
[2025-06-02 09:42] LABS: Hemoglobin A1C% w Est Avg Glu 5.7 % (4.0-6.0)
[2025-06-02 09:46] LABS: Ketones (Beta-Hydroxybutyrate) 0.91 mmol/L (<0.27)
[2025-06-02 09:48] LABS: Alanine Aminotransferase 20 IU/L (<35); Albumin 4.0 g/dL (3.5-5.0); Albumin Globulin Ratio 1.3 (1.0-2.8); Alkaline Phosphatase 103 U/L (38-126); Blood Urea Nitrogen 10 mg/dL (7-17); Calcium 8.5 mg/dL (8.4-10.2); Carbon Dioxide 19 mmol/L (22-32); Chloride 111 mmol/L (98-107); Estimated Glomerular Filt Rate > 60 mL/min (>60); Globulin 3.1 g/dL (1.7-4.1); Glucose 127 mg/dL (70-99); HEMOLYSIS < 15 (0-50); Potassium 3.7 mmol/L (3.4-5.1); Sodium 139 mmol/L (137-145); Total Protein 7.1 g/dL (6.3-8.2)
--- NOTE | 2025-06-02 10:21 | PM.HP.IH.1 ---
History of Present Illness History of Present Illness Date Patient Seen: 06/02/25 Time Patient Seen: 08:15 Date of Onset of Symptoms: 05/31/25 Chief complaint: can't stop vomiting, stomach pain Narrative: Patient is a 50-year-old white female presents to the emergency room with nausea vomiting of several days duration without any hematemesis myalgias and chills states she is having aches and pains from head to toe. She denies any melena states she had a bowel movement this a.m. with some relief. Her pain in the abdomen is generalized sharp and colicky but currently is gone. Patient had a history of a laparoscopic cholecystectomy done 12/13/2024 she had some stones were spilled and she has some retained gallstones in the subhepatic space in the right lateral gutter. CT scan shows some gallstones 3-5 with a small amount of fluid near these absent gallbladder normal common bile duct normal appendix diverticulosis without diverticulitis no acute inflammatory changes. I was asked see the patient for surgical evaluation. Patient is slightly anxious she has had multiple trips to the emergency room but her abdominal pain is better at this time. Patient's admitting laboratory shows a WBC of 10.2 hemoglobin is 14.6 hematocrit is 41.8 platelets are 433,000 sodium is 137 potassium 3.7 chloride 108 bicarb is 8 but patient states with the nausea and her anxiety she was hyperventilating was breathing into a brown paper bag at home for a considerable period of time. Patient's BUN is 10 creatinine is 0.83 random blood sugar is 204 total bilirubin 0.9 AST is 34 ALT is 27 alkaline phosphatase 147 lipase is 103. Patient had a venous gas done pH 7.5 PO2 is 39 pCO2 is 22.8 bicarb is 18 SaO2 was 80% on venous draw. Allergies: Amoxapine and penicillin Medications: Atorvastatin, fluoxetine, methocarbamol, methylphenidate, Reglan, omeprazole, Zofran, promethazine, propranolol 10 mg, GLP subcutaneous injection she stopped 1 month ago, similar tryptophan, gabapentin Past medical history: Contact lenses, anxiety, depression, ADHD, migraines, 0 para 0 ab 0, 3 step children, hyperlipidemia, hypertension, obesity, history of COVID March of 2025, chronic back pain with scoliosis, nephrolithiasis 2 weeks ago, restless leg syndrome with neuropathy. Patient denies any other heart lungs digestive musculoskeletal neurological seizure disorder psychiatric problems risks of Infectious diseases HIV or AIDS. Past surgical history: Laparoscopic cholecystectomy 12/13/2024, colonoscopy 1 month ago negative Social history: Home health nurse, history of tobacco abuse in high school 1/2 pack per day x4 years stopped At 17 years of age, 4 drinks per week, denies any recreational drug usage. Vitals: Temperature is 95.1? pulse is 77 respirations 18 BP is 123/57 SaO2 is 96% on room air. Patient is 5 ft 10 in tall, 185 lb Head is normocephalic and eyes PERRLA EOMI is intact nares are clear oropharyngeal cavity is in good repair oropharyngeal soft tissues are slightly dry. Heart regular rate and rhythm without murmurs. Lungs are clear to auscultation good inspiratory and expiratory effort good chest wall motion noted no rales rhonchi or wheezes noted. Abdomen is obese soft nondistended with good active bowel sounds. Negative Samy's Latonya great Mahajan's Ferraro's McBurney's no masses or peritoneal signs. No right upper quadrant pain is noted no flank pain is noted. Musculoskeletal moderate muscle tone and strength equal bilaterally no gross deficits elicited. Impression: Nausea vomiting without any hematemesis resolved. Patient is taking promethazine Zofran and Reglan for nausea Abdominal pain generalized colicky in nature resolved at this time. History of constipation. Anxiety, depression, ADHD, migraines Hyperlipidemia Hypertension Recently had COVID 03/2025 Nephrolithiasis 2 weeks ago WBC 10.2, normal LFTs History of laparoscopic cholecystectomy 12/13/2024 patient had spilled stones which are shown on CAT scan but no signs of abscesses noted small amount of fluid is noted near this area. Patient has no pain in this area. Plan: Discussed with patient the findings no acute surgical findings were noted this time her abdominal pain has resolved which was colicky in nature. Discussed with patient the findings with the spilled stones she usually these do not cause any symptoms or problems no signs of infection and she is having no pain in that area. Discussed with she continues to have problems may warrant a GI evaluation for possible CT-guided drainage and are culture but the very little fluid is noted to be quite difficult to do. Patient states she is feeling better at this time she desires to have no interventions at this time. Discussed the findings discussed clear liquid diet also discussed the amount of an antiemetic she is taking as these may cause problems also her medications that can cause abdominal pain and colic including the Reglan NG LPs. All questions were answered the patient's satisfaction no need for surgical intervention. Discussed with ER they are planning on discharging the patient and having follow-up with her family physician. Patient understands the spilled stones which she was told at the time of surgery were noted but she is having no symptoms or problems at this time would just observe unless she has worsening symptoms or problems. [facility] Medical History (Updated 05/24/25 @ 13:31 by Jenniffer Carrion) Cholelithiasis Anxiety with depression Diverticulosis of large intestine (~04/2017) Irregular menstrual cycle (2007) Ovarian cyst (2005) ADHD (attention deficit hyperactivity disorder) (2007) Generalized headaches Migraines Restless leg syndrome (2013) Chronic back pain Scoliosis Fractures Surgical History (Updated 02/23/25 @ 08:26 by Susanna Rodarte MD) Status post cholecystectomy No history of previous surgery Family History Father No problems noted. Mother No problems noted. Social History household members: spouse and children Smoking Status: Former smoker alcohol intake: current Meds Home Medications and Allergies Home Medications ?Medication ?Instructions ?Recorded ?Confirmed ?Type omeprazole 20 mg capsule,delayed 20 mg PO DAILY 04/04/22 05/24/25 History release promethazine 25 mg rectal 25 mg VA Q6H PRN nausea and 10/23/24 05/24/25 Rx suppository vomiting #12 ea ondansetron 4 mg disintegrating 4 mg PO Q6H PRN nausea and 12/18/24 05/24/25 Rx tablet vomiting #40 tabs semaglutide (weight loss) 0.25 0.5 mg SUBCUT QWEEK #4 mL 02/16/25 05/24/25 Rx mg/0.5 mL subcutaneous pen injector sumatriptan succinate 50 mg tablet 50 mg PO Q2-4H PRN migraine 04/16/25 05/24/25 Rx headache #20 tabs metoclopramide HCl 10 mg tablet See Rx Instructions .Route 04/26/25 05/24/25 Rx .COMPLEX #30 tabs gabapentin 300 mg capsule 600 mg (2 x 300 mg) PO BEDTIME 05/03/25 05/24/25 Rx #180 caps methocarbamol 500 mg tablet See Rx Instructions .Route 05/03/25 05/24/25 Rx .COMPLEX #60 tabs atorvastatin 20 mg tablet See Rx Instructions .Route 05/24/25 05/24/25 Rx .COMPLEX #90 tabs methylphenidate HCl 10 mg tablet 10 mg PO BID #60 tabs 05/24/25 05/24/25 Rx (Ritalin) propranolol 10 mg tablet 10 mg PO 3XD PRN for anxiety #90 05/24/25 05/24/25 Rx tabs fluoxetine 20 mg capsule 60 mg (3 x 20 mg) PO DAILY #270 05/31/25 Rx caps Allergies Allergy/AdvReac Type Severity Reaction Status Date / Time amoxapine (AMOXAPINE) Allergy Intermediate Verified 06/02/25 06:50 penicillin G (PENICILLIN G) Allergy Unknown cillin Verified 06/02/25 06:50 family Exam Vital Signs (past 8 hours): - 06/02/25 06:50 06/02/25 07:00 06/02/25 07:26 Temperature 95.1 F L Pulse Rate 72 77 77 Respiratory Rate 20 35 H 19 Blood Pressure Pulse Oximetry 100 100 Oxygen Delivery Method Room Air 06/02/25 07:26 06/02/25 07:30 06/02/25 07:30 Temperature Pulse Rate 59 L Respiratory Rate 35 H Blood Pressure 158/100 H 164/78 H Pulse Oximetry 99 Oxygen Delivery Method 06/02/25 07:58 06/02/25 08:00 06/02/25 08:01 Temperature Pulse Rate 77 65 Respiratory Rate 37 H Blood Pressure 164/78 H 175/81 H Pulse Oximetry 100 Oxygen Delivery Method 06/02/25 08:01 06/02/25 08:26 06/02/25 08:26 Temperature Pulse Rate 68 74 Respiratory Rate 30 H 25 H Blood Pressure 152/69 H Pulse Oximetry 99 100 Oxygen Delivery Method 06/02/25 08:30 06/02/25 08:30 06/02/25 09:00 Temperature Pulse Rate 66 77 Respiratory Rate 23 18 Blood Pressure 113/58 L Pulse Oximetry 93 96 Oxygen Delivery Method 06/02/25 09:00 06/02/25 09:30 06/02/25 09:30 Temperature Pulse Rate 78 Respiratory Rate 18 Blood Pressure 123/57 L 115/63 Pulse Oximetry 94 Oxygen Delivery Method Oxygen Delivery Method Room Air Objective Labs 06/02/25 07:05 06/02/25 09:38 Labs: Laboratory Results - last 24 hr 06/02/25 06/02/25 06/02/25 07:05 07:32 08:31 WBC 10.2 RBC 4.79 Hgb 14.6 Hct 41.8 MCV 87.2 MCH 30.5 MCHC 35.0 RDW 14.0 Plt Count 433 H Neut % (Auto) 60.0 Lymph % (Auto) 31.3 Douglas % (Auto) 7.2 Eos % (Auto) 0.9 L Baso % (Auto) 0.6 Neut # (Auto) 6100 Lymph # (Auto) 3200 Douglas # (Auto) 700 Eos # (Auto) 100 Baso # (Auto) 100 VBG pH 7.50 H VBG pCO2 22.8 L VBG pO2 39 VBG HCO3 18 L VBG Total CO2 17 L VBG O2 Saturation 80 H VBG Base Excess -3.7 L Sodium 137 Potassium 3.7 Chloride 108 H Carbon Dioxide 8 L* BUN 10 Creatinine 0.83 Estimated GFR > 60 BUN/Creatinine Ratio 12.0 Glucose 204 H Hemoglobin A1c 5.7 Calcium 10.2 Total Bilirubin 0.9 AST 34 ALT 27 Alkaline Phosphatase 147 H Total Protein 9.0 H Albumin 5.0 Globulin 4.0 Albumin/Globulin Ratio 1.3 Lipase 103 Ketones 0.91 H Chlamy pneumoniae PCR Not detected Adenovirus (PCR) Not detected B. pertussis DNA (PCR) Not detected B.parapertussis DNA PCR Not detected Coronavirus OC43 (PCR) Not detected Coronavirus HKU1 (PCR) Not detected Coronavirus 229E (PCR) Not detected SARS-CoV-2 (PCR) Not detected Coronavirus NL63 (PCR) Not detected Human Metapneumovir PCR Not detected Influenza Type A (PCR) Not detected Influenza Type B (PCR) Not detected M. pneumoniae (PCR) Not detected Parainfluenza 1 (PCR) Not detected Parainfluenza 2 (PCR) Not detected Parainfluenza 3 (PCR) Not detected Parainfluenza 4 (PCR) Not detected RSV (PCR) Not detected Entero/Rhino (PCR) Not detected 06/02/25 09:38 WBC RBC Hgb Hct MCV MCH MCHC RDW Plt Count Neut % (Auto) Lymph % (Auto) Douglas % (Auto) Eos % (Auto) Baso % (Auto) Neut # (Auto) Lymph # (Auto) Douglas # (Auto) Eos # (Auto) Baso # (Auto) VBG pH VBG pCO2 VBG pO2 VBG HCO3 VBG Total CO2 VBG O2 Saturation VBG Base Excess Sodium 139 Potassium 3.7 Chloride 111 H Carbon Dioxide 19 L BUN 10 Creatinine 0.75 Estimated GFR > 60 BUN/Creatinine Ratio 13.3 Glucose 127 H Hemoglobin A1c Calcium 8.5 Total Bilirubin 0.7 AST 27 ALT 20 Alkaline Phosphatase 103 Total Protein 7.1 Albumin 4.0 Globulin 3.1 Albumin/Globulin Ratio 1.3 Lipase Ketones Chlamy pneumoniae PCR Adenovirus (PCR) B. pertussis DNA (PCR) B.parapertussis DNA PCR Coronavirus OC43 (PCR) Coronavirus HKU1 (PCR) Coronavirus 229E (PCR) SARS-CoV-2 (PCR) Coronavirus NL63 (PCR) Human Metapneumovir PCR Influenza Type A (PCR) Influenza Type B (PCR) M. pneumoniae (PCR) Parainfluenza 1 (PCR) Parainfluenza 2 (PCR) Parainfluenza 3 (PCR) Parainfluenza 4 (PCR) RSV (PCR) Entero/Rhino (PCR) Assessment & Plan Time-Based Coding :: [TOTAL MINUTES] spent with patient and on the chart (including review of chart, obtaining history, exam, reviewing outside data, placing orders, documenting exam and treatment plan, and counseling patient) on [DATE]. PROFEE Grain Trimmer Document charge(s): Yes
== END 2025-06-02 11:04 | disposition home or self-care (01) ==
PROVIDERS: Emergency Provider Emergency Medicine; PCP Family Medicine
DX: K52.9 Noninfective gastroenteritis and colitis, unspecified (principal)
CPT/HCPCS: 74177; 80053; 81003; 82009; 82805; 83036; 83690; 85025; 87633; J0780; J1171; J2405; J7030; Q9967

== ENCOUNTER 2025-06-02 16:15 | Inpatient (IN) | payer OTHER, SELFPAY ==
[2024-12-12 16:39] VITALS: BMI 31.6
[2025-06-02 16:29] VITALS: PULSE 76; RESP 30; TEMP 36.4; O2SAT 97; BMI 27.3
--- NOTE | 2025-06-02 16:37 | EKG_ITS ---
[facility] [address] [place] [address] Test Date: 2025-06-02 Pat Name: Jackelyn Arteaga Department: [facility] Room: 90D Gender: Female Sales Closer: KEYA : 1975 Requested By: Order Number: [id number] Reading MD: Madhav Durbin MD Measurements Intervals [place] Rate: 80 P: 59 IL: 168 QRS: 67 QRSD: 102 T: 57 QT: 434 QTc: 500 Interpretive Statements Normal sinus rhythm Nonspecific ST abnormality Prolonged QT Electronically Signed On 06-03-2025 7:38:11 PDT by Madhav Durbin MD
[2025-06-02 17:07] LABS: Add Manual Diff / Slide Review NO; Hematocrit 40.0 % (36-46); Hemoglobin 13.6 g/dL (12.0-16.0); Lymphocytes Absolute Auto 1900 /uL (1100-4500); Mean Corpuscular HGB Conc 34.0 % (30-36); Mean Corpuscular Hemoglobin 30.3 PG (26-34); Mean Corpuscular Volume 88.9 fL (80-100); Platelet Count 397 X10^3/uL (150-400)
[2025-06-02] MEDS: ONDANSETRON 4 MG/2 ML INJ IV (17:09)
[2025-06-02 17:19] LABS: Alanine Aminotransferase 29 IU/L (<35); Albumin 4.9 g/dL (3.5-5.0); Albumin Globulin Ratio 1.3 (1.0-2.8); Alkaline Phosphatase 131 U/L (38-126); Blood Urea Nitrogen 8 mg/dL (7-17); Calcium 9.5 mg/dL (8.4-10.2); Chloride 108 mmol/L (98-107); Estimated Glomerular Filt Rate > 60 mL/min (>60); Globulin 3.7 g/dL (1.7-4.1); Glucose 193 mg/dL (70-99); HEMOLYSIS < 15 (0-50); Lipase 72 U/L (23-300); Potassium 3.5 mmol/L (3.4-5.1); Sodium 138 mmol/L (137-145); Total Protein 8.6 g/dL (6.3-8.2)
[2025-06-02 17:27] LABS: Carbon Dioxide 9 mmol/L (22-32)
--- NOTE | 2025-06-02 18:21 | ED.NAVMDI ---
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 Had further nausea and vomiting nonbloody at home, presented again still having nausea and vomiting with some crampy abdominal discomfort. Denies chest pain shortness of breath. PCP [facility]. Related Data Home Medications ?Medication ?Instructions ?Recorded ?Confirmed omeprazole 20 mg capsule,delayed 20 mg PO DAILY 04/04/22 05/24/25 release Previous Rx's ?Medication ?Instructions ?Recorded promethazine 25 mg rectal 25 mg MT Q6H PRN nausea and 10/23/24 suppository vomiting #12 ea ondansetron 4 mg disintegrating 4 mg PO Q6H PRN nausea and 12/18/24 tablet vomiting #40 tabs semaglutide (weight loss) 0.25 0.5 mg SUBCUT QWEEK #4 mL 02/16/25 mg/0.5 mL subcutaneous pen injector sumatriptan succinate 50 mg tablet 50 mg PO Q2-4H PRN migraine 04/16/25 headache #20 tabs metoclopramide HCl 10 mg tablet See Rx Instructions .Route 04/26/25 .COMPLEX #30 tabs gabapentin 300 mg capsule 600 mg (2 x 300 mg) PO BEDTIME 05/03/25 #180 caps methocarbamol 500 mg tablet See Rx Instructions .Route 05/03/25 .COMPLEX #60 tabs atorvastatin 20 mg tablet See Rx Instructions .Route 05/24/25 .COMPLEX #90 tabs methylphenidate HCl 10 mg tablet 10 mg PO BID #60 tabs 05/24/25 (Ritalin) propranolol 10 mg tablet 10 mg PO 3XD PRN for anxiety #90 05/24/25 tabs fluoxetine 20 mg capsule 60 mg (3 x 20 mg) PO DAILY #270 05/31/25 caps ondansetron 4 mg disintegrating 4 mg PO Q6H PRN nausea and 06/02/25 tablet vomiting #20 tabs Allergies Allergy/AdvReac Type Severity Reaction Status Date / Time amoxapine (AMOXAPINE) Allergy Intermediate Verified 06/02/25 06:50 penicillin G (PENICILLIN G) Allergy Unknown cillin Verified 06/02/25 06:50 family Patient History Medical History (Updated 06/02/25 @ 20:35 by Trace Lim MD) Cholelithiasis Anxiety with depression Diverticulosis of large intestine (~04/2017) Irregular menstrual cycle (2007) Ovarian cyst (2005) ADHD (attention deficit hyperactivity disorder) (2007) Generalized headaches Migraines Restless leg syndrome (2013) Chronic back pain Scoliosis Fractures Surgical History (Updated 02/23/25 @ 08:26 by Susanna Rodarte MD) Status post cholecystectomy No history of previous surgery Family History Father No problems noted. Mother No problems noted. Social History household members: spouse and children alcohol intake: current tobacco type: cigarettes Alcohol type: beer Exam Narrative Exam Narrative: GENERAL: Well-developed patient, in mild distress. HEAD: Atraumatic. Normocephalic. EYES: Pupils equal round and reactive. Extraocular motions intact. No scleral icterus. No injection or drainage. ENT: Nose without bleeding, purulent drainage. Throat without erythema, tonsillar hypertrophy or exudate. Airway patent. NECK: Trachea midline. Non tender CARDIOVASCULAR: Regular rate and rhythm without murmurs, gallops, or rubs. RESPIRATORY: Clear to auscultation. Breath sounds equal bilaterally. No wheezes, rales, or rhonchi. GASTROINTESTINAL: Abdomen soft, non-tender, nondistended. Unremarkable bowel tones without rushes or tinkles. EXTREMITIES: No edema or joint tenderness. BACK: Nontender without deformity or crepitance. No flank tenderness. NEURO: AOx3. Motor functions grossly nonfocal. SKIN: No rash or erythema of visible areas Initial Vital Signs Initial Vital Signs: Vital Signs Temperature 97.6 F 06/02/25 16:29 Pulse Rate 76 06/02/25 16:29 Respiratory Rate 30 H 06/02/25 16:29 Pulse Oximetry 97 06/02/25 16:29 Oxygen Delivery Method Room Air 06/02/25 16:29 Course Orders Ordered: ED Orders 06/02/25 19:44 EKG-12 Lead Stat Acetaminophen (Acetaminophen 325 Mg Tablet) 650 mg PO Q6H PRN PRN Reason: Fever/Mild Pain (1-3) Calcium Carbonate (Calcium Carbonate 500 Mg Tab) 1,000 mg PO Q4HR PRN PRN Reason: Dyspepsia Enoxaparin Sodium (Enoxaparin 40 Mg/0.4 Ml Syringe) 40 mg SUBCUT DAILY ZACH Hydromorphone HCl (Hydromorphone Hcl 0.5 Mg/0.5 Ml Syringe) 0.5 mg IV Q2H PRN PRN Reason: Pain, Severe (7-10) Sodium Chloride (Normal Saline 0.9%) 1,000 mls @ 84 mls/hr IV CONT ZACH Last Admin: 06/02/25 21:49 Dose: 84 mls/hr Documented By: JESS Ondansetron HCl 8 mg/ Sodium (Chloride) 54 mls @ 216 mls/hr IV Q6HR PRN PRN Reason: Nausea And Vomiting Morphine Sulfate (Morphine 2 Mg/Ml Inj) 2 mg IV Q2HR PRN PRN Reason: Pain, Moderate (4-6) Last Admin: 06/02/25 22:17 Dose: 2 mg Documented By: JESS Naloxone HCl (Naloxone 0.4 Mg/Ml Vial) 0.2 mg IV Q2MIN PRN PRN Reason: Opiate Reversal Ondansetron HCl (Ondansetron 4 Mg/2 Ml Inj) 4 mg IV NOW PRN PRN Reason: Nausea And Vomiting Last Admin: 06/02/25 17:09 Dose: 4 mg Documented By: GAMALIEL Ondansetron HCl (Ondansetron 4 Mg Odt) 4 mg PO NOW PRN PRN Reason: Nausea And Vomiting Last Admin: 06/02/25 21:47 Dose: 4 mg Documented By: JESS Ondansetron HCl (Ondansetron 4 Mg Odt) 4 mg PO Q8HR PRN PRN Reason: Nausea And Vomiting Propranolol HCl (Propranolol 10 Mg Tablet) 10 mg PO TID PRN PRN Reason: anxiety Last Admin: 06/02/25 22:16 Dose: 10 mg Documented By: JESS Sumatriptan Succinate (Sumatriptan 25 Mg Tablet) 50 mg PO Q2H PRN PRN Reason: Migraine Headache Last Admin: 06/03/25 01:36 Dose: 50 mg Documented By: Admin: 06/02/25 22:16 Dose: 50 mg Documented By: JESS Discontinued Medications Hydromorphone HCl (Hydromorphone 1 Mg/Ml Syringe) 1 mg IV NOW ONE Stop: 06/02/25 16:52 Last Admin: 06/02/25 17:09 Dose: 1 mg Documented By: GAMALIEL Sodium Chloride (Normal Saline 0.9%) 1,000 mls @ 2,000 mls/hr IV BOLUS ONE Stop: 06/02/25 18:51 Last Infusion: 06/02/25 20:36 Dose: Infused Documented By: Admin: 06/02/25 19:35 Dose: 2,000 mls/hr Documented By: GAMALIEL Vital Signs Vital signs: Vital Signs - 8 hr 06/02/25 16:29 Temperature 97.6 F Pulse Rate 76 Respiratory Rate 30 H Pulse Oximetry 97 Oxygen Delivery Method Room Air MDM - Nausea/Vomiting/Diarrhea Lab Data Attestation: I reviewed the patient's lab results. Lab results narrative: White blood cell count 80436, hemoglobin 13.6, platelets adequate. Glucose 193. BUN creatinine normal. Serum CO2 9 markedly diminished similar to prior study earlier today when it was 8. Normal sodium and potassium levels. Slight alkaline phosphatase elevation, other liver functions normal. Lipase normal. Troponin negative/unmeasurable. Ketones positive. Salicylate and acetaminophen levels negative. Lactate 1.0 not elevated. 06/02/25 16:55 06/02/25 16:55 Labs: Lab Results 06/02/25 06/02/25 06/02/25 Range/Units 16:55 18:55 19:03 WBC 12.1 H (4.5-11.0) X10^3/uL RBC 4.50 (4.0-5.2) X10^6/uL Hgb 13.6 (12.0-16.0) g/dL Hct 40.0 (36-46) % MCV 88.9 (80-100) fL MCH 30.3 (26-34) PG MCHC 34.0 (30-36) % RDW 14.0 (11.6-14.8) % Plt Count 397 (150-400) X10^3/uL Neut % (Auto) 80.0 H D (50-75) % Lymph % (Auto) 15.2 L (25-40) % [place] % (Auto) 4.5 (3-14) % Eos % (Auto) 0.0 L (2-4) % Baso % (Auto) 0.3 (0-2) % Neut # (Auto) 9700 H (3398-5205) /uL Lymph # (Auto) 1900 (2195-2251) /uL [place] # (Auto) 500 (0-900) /uL Eos # (Auto) 0 (0-450) /uL Baso # (Auto) 0 (0-100) /uL VBG pH 7.37 (7.33-7.43) VBG pCO2 38.3 L (45-50) mmHg VBG pO2 35 (35-45) mmHg VBG HCO3 22 L (24-28) mmol/L VBG Total CO2 21 L (24-29) mmol/L VBG O2 Saturation 66 L (70-75) % VBG Base Excess -2.6 L (0-4) mmol/L FiO2 % 21.0 % % Sodium 138 (137-145) mmol/L Potassium 3.5 (3.4-5.1) mmol/L Chloride 108 H (98-107) mmol/L Carbon Dioxide 9 L* (22-32) mmol/L BUN 8 (7-17) mg/dL Creatinine 0.72 (0.52-1.04) mg/dL Estimated GFR > 60 (>60) mL/min BUN/Creatinine Ratio 11.1 (6-22) Glucose 193 H (70-99) mg/dL Lactate 1.0 (0.7-2.1) mmol/L Calcium 9.5 (8.4-10.2) mg/dL Total Bilirubin 0.8 (0.2-1.3) mg/dL AST 33 (14-36) IU/L ALT 29 (<35) IU/L Alkaline Phosphatase 131 H (38-126) U/L Troponin I < 0.012 (0.01-0.034) ng/mL Total Protein 8.6 H (6.3-8.2) g/dL Albumin 4.9 (3.5-5.0) g/dL Globulin 3.7 (1.7-4.1) g/dL Albumin/Globulin Ratio 1.3 (1.0-2.8) Lipase 72 (23-300) U/L Salicylates < 1.0 (<20) mg/dL Acetaminophen < 10 (10-30) ug/mL Ketones 1.54 H (<0.27) mmol/L ECG Data Attestation: I personally reviewed and interpreted this ECG as follows: Interpretation: 1955, normal sinus rhythm with rate of 80, no obvious ST segment elevation or depression changes. MT 168, QRS 102. QTC 500 mildly prolonged. 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 Was discharged home but then returns with recurrence nausea and vomiting. Labs pending. Antiemetics given. Fluid orders given. EKG normal sinus rhythm, QT prolongation 500 mild, no obvious ischemic changes. Lab data: White blood cell count 04934, hemoglobin 13.6, platelets adequate. Glucose 193. BUN creatinine normal. Serum CO2 9 markedly diminished similar to prior study earlier today when it was 8. Normal sodium and potassium levels. Slight alkaline phosphatase elevation, other liver functions normal. Lipase normal. Troponin negative/unmeasurable. Ketones positive. Salicylate and acetaminophen levels negative. Lactate 1.0 not elevated. 1950, PCP [facility], consider admission, we will page cross cover physician. Case discussed with Dr. Mooney who accepts patient for admission to observation Critical Care Time Critical Care Time Critical Care Time: Yes Total Critical Care Time: 35 Attestation: The high probability of a clinically significant, sudden or life threatening deterioration of the [abdominopelvic, gastrointestinal, metabolic] system(s) required my full and direct attention, intervention and personal management. The aggregate critical care time was [35] minutes. This time is in addition to time spent performing reported procedures but includes the following: [x] Data Review and interpretation [x] Patient assessment and monitoring of vital signs [x] Documentation [x] Medication orders and management Discharge Plan Departure Patient Disposition: Admitted as Observation Clinical Impression: Nausea and vomiting Admit Date/Time: 06/02/25 19:53 Admit Provider: Gaurang Mooney
[2025-06-02 18:34] LABS: Acetaminophen < 10 ug/mL (10-30); Salicylate < 1.0 mg/dL (<20)
[2025-06-02 18:41] LABS: Ketones (Beta-Hydroxybutyrate) 1.54 mmol/L (<0.27)
[2025-06-02 18:50] LABS: Troponin I < 0.012 ng/mL (0.01-0.034)
[2025-06-02 19:00] LABS: Base Excess VBG -2.6 mmol/L (0-4); HCO3 VBG 22 mmol/L (24-28); Oxygen Saturation VBG 66 % (70-75); PCO2 VBG 38.3 mmHg (45-50); PO2 VBG 35 mmHg (35-45); Total CO2 VBG 21 mmol/L (24-29); pH VBG 7.37 (7.33-7.43)
[2025-06-02 19:24] LABS: Lactate (Lactic Acid) 1.0 mmol/L (0.7-2.1)
[2025-06-02] MEDS: SODIUM CHLORIDE 0.9% 1,000 ML 2000 ML IV (19:35)
[2025-06-02 20:01] VITALS: BP 109/53; PULSE 83; RESP 14; O2SAT 98
--- NOTE | 2025-06-02 20:02 | PC.NURSE ---
Patient resting in bed and feels a little better. She is not in distress but still reports feeling a little icky. Her O2 saturation dropped to 88% on RA. Pt was encouraged to take some breathes and her 02 saturation came up to 98%.
[2025-06-02 20:42] VITALS: BMI 27.3
[2025-06-02 21:11] VITALS: BP 123/70; PULSE 89; RESP 20; TEMP 36.6; O2SAT 94
[2025-06-02] MEDS: ONDANSETRON 4 MG ODT PO (21:47)
[2025-06-02] MEDS: SODIUM CHLORIDE 0.9% 1,000 ML 84 ML IV (21:49)
[2025-06-02] MEDS: PROPRANOLOL 10 MG TABLET PO (22:16)
[2025-06-02] MEDS: MORPHINE 2 MG/ML INJ IV (22:17)
--- NOTE | 2025-06-03 04:51 | PC.NURSE ---
Assumed care of patient at 03:30
[2025-06-03] MEDS: ONDANSETRON 4 MG ODT PO ×3 (06:37→23:56)
[2025-06-03] MEDS: MORPHINE 2 MG/ML INJ IV ×3 (06:38→23:46)
[2025-06-03 07:00] VITALS: O2SAT 95
[2025-06-03 08:00] VITALS: BP 110/71; PULSE 82; RESP 16; TEMP 37; O2SAT 95
--- NOTE | 2025-06-03 08:02 | PM.HP.IH.1 ---
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 Came to the ER earlier day of admission no serious findings was rehydrated seem to be improved and was discharged home but had return of symptoms and so returned to the ER and it was elected to admit her for ongoing treatment Only findings have been a bit of mild leukocytosis, some significant metabolic acidosis (felt to be secondary to the ongoing GI symptoms rather than a cause of those symptoms), and gallstones noted near the liver relating back to her laparoscopic cholecystectomy in December of this year with evidence of mild inflammatory process on CT imaging, unchanged from imaging done about 6 weeks ago. Evidence in the colon of maybe some persistent inflammatory change. Patient has been on a GLP 1 agonist for an extended time as well with greater than 50 lb weight loss. This may have contributed to her cholecystitis. She has not had a dose of the semaglutide for several weeks. Also recently restarted her stimulants for ADHD Patient reports these episodes of nausea and vomiting have been ongoing since she had her gallbladder surgery back in December. [facility] Medical History (Updated 06/03/25 @ 07:31 by Madhav Durbin MD) Cholelithiasis Anxiety with depression Diverticulosis of large intestine (~04/2017) Irregular menstrual cycle (2007) Ovarian cyst (2005) ADHD (attention deficit hyperactivity disorder) (2007) Generalized headaches Migraines Restless leg syndrome (2013) Chronic back pain Scoliosis Fractures Surgical History (Updated 06/03/25 @ 08:03 by Madhav Durbin MD) Status post cholecystectomy Family History Father No problems noted. Mother No problems noted. Social History household members: spouse and children alcohol intake: current Meds Home Medications and Allergies Home Medications ?Medication ?Instructions ?Recorded ?Confirmed ?Type omeprazole 20 mg capsule,delayed 20 mg PO DAILY 04/04/22 05/24/25 History release promethazine 25 mg rectal 25 mg ID Q6H PRN nausea and 10/23/24 05/24/25 Rx suppository vomiting #12 ea ondansetron 4 mg disintegrating 4 mg PO Q6H PRN nausea and 12/18/24 05/24/25 Rx tablet vomiting #40 tabs semaglutide (weight loss) 0.25 0.5 mg SUBCUT QWEEK #4 mL 02/16/25 05/24/25 Rx mg/0.5 mL subcutaneous pen injector sumatriptan succinate 50 mg tablet 50 mg PO Q2-4H PRN migraine 04/16/25 05/24/25 Rx headache #20 tabs metoclopramide HCl 10 mg tablet See Rx Instructions .Route 04/26/25 05/24/25 Rx .COMPLEX #30 tabs gabapentin 300 mg capsule 600 mg (2 x 300 mg) PO BEDTIME 05/03/25 05/24/25 Rx #180 caps methocarbamol 500 mg tablet See Rx Instructions .Route 05/03/25 05/24/25 Rx .COMPLEX #60 tabs atorvastatin 20 mg tablet See Rx Instructions .Route 05/24/25 05/24/25 Rx .COMPLEX #90 tabs methylphenidate HCl 10 mg tablet 10 mg PO BID #60 tabs 05/24/25 05/24/25 Rx (Ritalin) propranolol 10 mg tablet 10 mg PO 3XD PRN for anxiety #90 05/24/25 05/24/25 Rx tabs fluoxetine 20 mg capsule 60 mg (3 x 20 mg) PO DAILY #270 05/31/25 Rx caps ondansetron 4 mg disintegrating 4 mg PO Q6H PRN nausea and 06/02/25 Rx tablet vomiting #20 tabs Allergies Allergy/AdvReac Type Severity Reaction Status Date / Time amoxapine (AMOXAPINE) Allergy Intermediate Verified 06/02/25 06:50 penicillin G (PENICILLIN G) Allergy Unknown cillin Verified 06/02/25 06:50 family Review of Systems Review of Systems ROS: Yes All systems reviewed with the patient and are negative except as otherwise documented Exam Vital Signs (past 8 hours): Oxygen Delivery Method Room Air Oxygen Flow Rate 0 Narrative Exam Narrative: Very uncomfortable appearing middle-aged female lying in a hospital bed HEENT unremarkable Lungs-clear Abdomen-positive bowel tones diffuse mild tenderness without rebound or guarding Objective Labs 06/02/25 16:55 06/02/25 16:55 Labs: Laboratory Results - last 24 hr 06/02/25 06/02/25 06/02/25 16:55 18:55 19:03 WBC 12.1 H RBC 4.50 Hgb 13.6 Hct 40.0 MCV 88.9 MCH 30.3 MCHC 34.0 RDW 14.0 Plt Count 397 Neut % (Auto) 80.0 H D Lymph % (Auto) 15.2 L [place] % (Auto) 4.5 Eos % (Auto) 0.0 L Baso % (Auto) 0.3 Neut # (Auto) 9700 H Lymph # (Auto) 1900 [place] # (Auto) 500 Eos # (Auto) 0 Baso # (Auto) 0 VBG pH 7.37 VBG pCO2 38.3 L VBG pO2 35 VBG HCO3 22 L VBG Total CO2 21 L VBG O2 Saturation 66 L VBG Base Excess -2.6 L FiO2 % 21.0 % Sodium 138 Potassium 3.5 Chloride 108 H Carbon Dioxide 9 L* BUN 8 Creatinine 0.72 Estimated GFR > 60 BUN/Creatinine Ratio 11.1 Glucose 193 H Lactate 1.0 Calcium 9.5 Total Bilirubin 0.8 AST 33 ALT 29 Alkaline Phosphatase 131 H Troponin I < 0.012 Total Protein 8.6 H Albumin 4.9 Globulin 3.7 Albumin/Globulin Ratio 1.3 Lipase 72 Salicylates < 1.0 Acetaminophen < 10 Ketones 1.54 H Assessment & Plan Assessment & Plan narrative: 1. Persistent nausea and vomiting-will continue try and control with antiemetics and some limited use of pain meds for mild abdominal pain. Fortunately no evidence of any serious etiology on imaging. I think she needs to be vigorously rehydrated and so will switch her IV fluids to LR and increased rate. Recheck labs this morning and again tomorrow to follow-up on her metabolic acidosis and her mild leukocytosis etcetera. I am not sure as to the etiology of the nausea and vomiting. These episodes began around time of her gallbladder surgery and she does have these retained stones which frankly I have not seen before and do not appear to be causing a great deal of inflammation based on imaging anyway but we do not really have any better answers than that. The semaglutide that she was previously taking could have been a contributing factor but by her report she has been off for several weeks now at this point and I do not think that is an ongoing contributor at this time. This would be an unusual presentation for an infectious gastroenteritis given duration of symptoms intermittent episodes etcetera. However may need to screen with a GI panel for potential etiologies. She did have a respiratory panel performed and no evidence of respiratory viral infection at this time. Patient also works in the healthcare field and given that and that alone (not based on anything she has told me) she would be at some risk of some inappropriate medication use. Consider tox screen as well only because of this risk, not because of any clinical features or anything in her history. 2. Anxiety with depression-patient normally on fluoxetine etcetera. I am going to hold these meds until her GI symptoms have resolved or least tremendously improved 3. ADHD-as above will be holding medications until GI symptoms vastly improved 4. Hyperlipidemia-hold medication until symptoms vastly improved as above 5. Code status-full code which is entirely appropriate 6. VTE prophylaxis-Lovenox would be entirely appropriate and has been ordered, in addition to SCDs Time-Based Coding :: [TOTAL MINUTES] spent with patient and on the chart (including review of chart, obtaining history, exam, reviewing outside data, placing orders, documenting exam and treatment plan, and counseling patient) on [DATE]. 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
[2025-06-03] MEDS: METOCLOPRAMIDE 10 MG/2 ML INJ IV ×3 (08:49→21:31)
[2025-06-03] MEDS: ENOXAPARIN 40 MG/0.4 ML SYRINGE SUBCUT (08:54)
[2025-06-03] MEDS: DEXTROSE 5%-LACTATED RINGERS 1,000 ML 125 ML IV ×2 (08:56→17:33)
[2025-06-03 09:16] LABS: Add Manual Diff / Slide Review NO; Hematocrit 37.2 % (36-46); Hemoglobin 12.7 g/dL (12.0-16.0); Lymphocytes Absolute Auto 3100 /uL (1100-4500); Mean Corpuscular HGB Conc 34.2 % (30-36); Mean Corpuscular Hemoglobin 30.2 PG (26-34); Mean Corpuscular Volume 88.4 fL (80-100); Platelet Count 363 X10^3/uL (150-400)
[2025-06-03 09:29] LABS: Alanine Aminotransferase 21 IU/L (<35); Albumin 4.1 g/dL (3.5-5.0); Albumin Globulin Ratio 1.4 (1.0-2.8); Alkaline Phosphatase 107 U/L (38-126); Blood Urea Nitrogen 7 mg/dL (7-17); Calcium 9.3 mg/dL (8.4-10.2); Carbon Dioxide 14 mmol/L (22-32); Chloride 109 mmol/L (98-107); Estimated Glomerular Filt Rate > 60 mL/min (>60); Globulin 3.0 g/dL (1.7-4.1); Glucose 116 mg/dL (70-99); HEMOLYSIS < 15 (0-50); Potassium 3.1 mmol/L (3.4-5.1); Sodium 137 mmol/L (137-145); Total Protein 7.1 g/dL (6.3-8.2)
[2025-06-03] MEDS: POTASSIUM CHLORIDE IN WATER 10 MEQ/100 ML PIGGYBACK 100 MEQ IV (10:33)
[2025-06-03] MEDS: POTASSIUM CHLORIDE IN WATER 10 MEQ/100 ML PIGGYBACK 50 MEQ IV ×3 (12:17→16:38)
--- NOTE | 2025-06-03 13:21 | CM.DANOTE ---
Initial DCP Assessment Note. Review EMR and PT Interview. Met with patient at bedside to discuss discharge needs.PT is alert x 4 sitting up in bed.. No acute distress. Independent. Family or friend can take patient home upon discharge. Payor:??[employer] PCP: Summary & Plan:?50 y/o female arrived to ED c/o nausea and vomiting. Admitted OBS. Dx. Dehydration. Plan: IVF. Advance diet as tolerated. Discharge Planning/Care Management CM Discharge Assessment Start: 06/02/25 20:42 Freq: Status: Active Protocol: Document 06/03/25 13:19 (Rec: 06/03/25 13:21 [id number]) Discharge Planning Assessment Assigned Discharge Cary Barnes RN CM Adult Basic Education Instructor Provider Dr. Cayden Olguin [employer] Advance Directives? No Advance Directives No on File History Provided By Patient,Medical Record Has Patient been No admitted in last 30 days? Household Members spouse,children Type of Drives own vehicle transporation used prior to admit Independent with ADL Yes 's Is patient alert and Yes oriented? Caregiver for No Another Barriers to No Discharge Discharge Plan Home Transportation Spouse can transport at d/c Arrangement Referrals Initiated None needed Review Status In Process Please Provide Date 06/03/25 Initial DC Assessment Was Performed Next Review Type Continued Stay Review
--- NOTE | 2025-06-03 14:21 | INF.NOTE ---
ASSUMED CARE OF PATIENT AT 1100. REPORT RECEIVED FROM FABIANA BHATT. PT A/OX4. NO C/O NAUSEA AT THIS TIME. PATIENT STATES IT COMES AND GOES. NO S/S OF SOB OR RESPI DISTRESS NOTED. ATTEMPTING TO EAT LUNCH. POTASSIUM RUNNING TOLERATED AT 50 MLS/HR. PHARMACY NOTIFIED TO CHANGE ORDER. ALL QUESTIONS ANSWERED AT THIS TIME. CARE ONGOING.
[2025-06-03 19:00] VITALS: BP 109/51; PULSE 68; RESP 18; TEMP 36.3; O2SAT 93
[2025-06-04] VITALS (16 sets, daily range): BP systolic 103–147; BP diastolic 54–82; PULSE 64–108; RESP 11–24; TEMP 35.8–37.2; O2SAT 90–100
--- NOTE | 2025-06-04 | PATH_ITS ---
[facility] Accession Number: [id number] No. of containers..01 Tissue . 01 Material submitted: . body - RETAINED GALLSTONES . 01 Diagnosis: RETAINED GALLSTONES: Fragments of gallstones. Separate fragments of benign liver with features of cholestasis. TITUS 06/18/2025 1102 Local . 01 Electronically signed: . Reba Patino DO, Pathologist NPI- [id number] . 01 Gross description: . Received in formalin with two patient identifiers and retained gallstones are multiple green to brown-black, intact to fragmented, firm and focally softened calculi that aggregates to 3.0 x 3.0 x 1.2 cm. The calculi fragments are intermixed with three yellow shaggy and disrupted fibrofatty soft tissue fragments ranging from 0.8 to 1.6 cm. The soft tissue fragments are entirely submitted in A1 (calculi fragments retained). ([id number]) /MRV 06/18/2025 1120 Local . 01 Pathologist provided ICD-10: K92.89 . 01 CPT . 656538 Specimen Comment: A courtesy copy of this report has been sent to [phone] Performed at: [address] [address], [place], [place] [id number] MD Yaniv Noguera MD Phone: [phone]
[2025-06-04] MEDS: DEXTROSE 5%-LACTATED RINGERS 1,000 ML 125 ML IV ×3 (01:24→21:50)
--- NOTE | 2025-06-04 01:32 | PC.NURSE ---
Assumed care of patient at 00:30.
[2025-06-04 06:12] LABS: Add Manual Diff / Slide Review NO; Hematocrit 35.6 % (36-46); Hemoglobin 12.0 g/dL (12.0-16.0); Lymphocytes Absolute Auto 1400 /uL (1100-4500); Mean Corpuscular HGB Conc 33.8 % (30-36); Mean Corpuscular Hemoglobin 30.1 PG (26-34); Mean Corpuscular Volume 89.1 fL (80-100); Platelet Count 324 X10^3/uL (150-400)
[2025-06-04 06:23] LABS: Magnesium 1.7 mg/dL (1.6-2.3)
[2025-06-04 06:24] LABS: Alanine Aminotransferase 18 IU/L (<35); Albumin 3.9 g/dL (3.5-5.0); Albumin Globulin Ratio 1.3 (1.0-2.8); Alkaline Phosphatase 86 U/L (38-126); Blood Urea Nitrogen 5 mg/dL (7-17); Calcium 9.0 mg/dL (8.4-10.2); Carbon Dioxide 22 mmol/L (22-32); Chloride 107 mmol/L (98-107); Estimated Glomerular Filt Rate > 60 mL/min (>60); Globulin 3.1 g/dL (1.7-4.1); Glucose 121 mg/dL (70-99); HEMOLYSIS < 15 (0-50); Potassium 3.8 mmol/L (3.4-5.1); Sodium 136 mmol/L (137-145); Total Protein 7.0 g/dL (6.3-8.2)
[2025-06-04] MEDS: SENNOSIDES 8.6 MG TABLET PO (09:34)
[2025-06-04] MEDS: MAGNESIUM CHLORIDE 64 MG TABLET 128 MG PO (09:34)
--- NOTE | 2025-06-04 10:22 | P.PN_ITS ---
Subjective Subjective Date Patient Seen: 06/04/25 Time Patient Seen: 08:10 Interval history: The pt continues to feel poorly this morning. Last night she had multiple bouts of severe nausea and vomiting, accompanied by RUQ abdominal pain. The pain has persisted since then, despite IV pain medication. The pain is a constant ache that intermittently worsens and becomes more sharp. She has been using Zofran and Reglan, which has incompletely controlled her nausea. She has not had a BM in the last 2 days. The pt also reports having a persistent headache that feels like a migraine. Exam Vital Signs (past 8 hours): - 06/04/25 07:00 06/04/25 08:00 Temperature 96.5 F L Pulse Rate 64 Respiratory Rate 17 Blood Pressure 125/69 Pulse Oximetry 91 91 Oxygen Delivery Method Room Air Oxygen Flow Rate 0 0 Oxygen Delivery Method Room Air Oxygen Flow Rate 0 Narrative Exam Narrative: Gen: NAD, sitting in bed, appears slightly pale CV: RRR, no murmurs Resp: clear to auscultation bilaterally Abd: soft, tender to palpation in RUQ without rebound/guarding/rigidity, significantly hypoactive bowel sounds, no masses Ext: no edema Objective Labs 06/04/25 05:54 06/04/25 05:54 Labs: Laboratory Results - last 24 hr 06/04/25 05:54 WBC 8.1 RBC 4.00 Hgb 12.0 Hct 35.6 L MCV 89.1 MCH 30.1 MCHC 33.8 RDW 14.1 Plt Count 324 Neut % (Auto) 77.0 H Lymph % (Auto) 16.6 L [place] % (Auto) 5.8 Eos % (Auto) 0.1 L Baso % (Auto) 0.5 Neut # (Auto) 6300 Lymph # (Auto) 1400 [place] # (Auto) 500 Eos # (Auto) 0 Baso # (Auto) 0 Sodium 136 L Potassium 3.8 Chloride 107 Carbon Dioxide 22 BUN 5 L Creatinine 0.61 Estimated GFR > 60 BUN/Creatinine Ratio 8.2 Glucose 121 H Calcium 9.0 Magnesium 1.7 Total Bilirubin 0.4 AST 27 ALT 18 Alkaline Phosphatase 86 Total Protein 7.0 Albumin 3.9 Globulin 3.1 Albumin/Globulin Ratio 1.3 [facility] Medical History (Updated 06/03/25 @ 07:31 by Madhav Durbin MD) Cholelithiasis Anxiety with depression Diverticulosis of large intestine (~04/2017) Irregular menstrual cycle (2008) Ovarian cyst (2006) ADHD (attention deficit hyperactivity disorder) (2007) Generalized headaches Migraines Restless leg syndrome (2013) Chronic back pain Scoliosis Fractures Surgical History (Updated 06/03/25 @ 08:03 by Madhav Durbin MD) Status post cholecystectomy Family History Father No problems noted. Mother No problems noted. Social History household members: spouse and children alcohol intake: current Assessment & Plan Assessment & Plan narrative: Pt is a 50yo with ADHD, anxiety/depression, hyperlipidemia, and restless leg syndrome who presented with persistent nausea and vomiting. 1) Nausea and vomiting, RUQ abdominal pain: Unclear etiology. Unlikely infectious due to the duration of symptoms, normal WBC count. She has been off Semaglutide for several weeks, unlikely to still be contributing. Most likely cause at this point is retained gallstones after cholecystectomy. - Surgery consulted for consideration of washout/stone extraction, appreciate care - Continue Ondansetron, Metoclopramide. Addition of Promethazine. - Senna to help with constipation - Continue mIVF at 125cc/hr - Morphine and Dilaudid PRN for pain 2) Migraine: - Sumatriptan PRN - Antinausea medications as above PRN 3) Anxiety/depression: Stable - Hold Fluoxetine until tolerating PO better. - Propranolol PRN 4) ADHD: Stable - Hold Adderall until tolerating PO better 5) Hyperlipidemia: - Hold statin until tolerating PO better 6) Restless leg syndrome: Stable DVT ppx: Lovenox FEN: NPO pending potential surgical intervention Code: Full Dispo: Pending improvement in symptoms, ability to tolerate some PO. Potential surgical intervention. Time-Based Coding :: [TOTAL MINUTES] spent with patient and on the chart (including review of chart, obtaining history, exam, reviewing outside data, placing orders, documenting exam and treatment plan, and counseling patient) on [DATE]. PROFEE Clinic Physician Director Document charge(s): Yes Charge Codes Subsequent inpatient/observation care: [id number]
--- NOTE | 2025-06-04 12:18 | CM.DPC ---
Update: Patient not tolerating PO. Dr. Restrepo has been consulted. Independent at baseline.
[2025-06-04] MEDS: ONDANSETRON 4 MG/2 ML INJ IV ×2 (15:22→21:51)
[2025-06-04] MEDS: METOCLOPRAMIDE 10 MG/2 ML INJ IV ×2 (15:43→21:51)
--- NOTE | 2025-06-04 15:44 | SUR.HOLD ---
Dr Patino called as patient with over 300ml of emesis in pre-op and still vomiting after zofran. Ok to give reglan and 4mg ondansteron now.
[2025-06-04] MEDS: SCOPOLAMINE 1 PATCH TOP (16:02)
--- NOTE | 2025-06-04 16:08 | PM.CN.IH.1 ---
History of Present Illness Consult details Date Patient Seen: 06/04/25 Time Patient Seen: 16:08 Chief complaint: Severe Vomiting Narrative: Patient is a 50-year-old woman who had a laparoscopic cholecystectomy with Dr. Xavi pang in December of this year. She has had abdominal pain and nausea and vomiting since that time. Symptoms tend to come in waves. She was admitted to the hospital for severe intractable nausea and vomiting. A CT scan showed retained gallstones in the right upper quadrant posterior to the right lobe of the liver. Meds Home Medications and Allergies Home Medications ?Medication ?Instructions ?Recorded ?Confirmed ?Type omeprazole 20 mg capsule,delayed 20 mg PO DAILY 04/04/22 06/03/25 History release ondansetron 4 mg disintegrating 4 mg PO Q6H PRN nausea and 12/18/24 06/03/25 Rx tablet vomiting #40 tabs semaglutide (weight loss) 0.25 0.5 mg SUBCUT QWEEK #4 mL 02/16/25 06/03/25 Rx mg/0.5 mL subcutaneous pen injector sumatriptan succinate 50 mg tablet 50 mg PO Q2-4H PRN migraine 04/16/25 06/03/25 Rx headache #20 tabs metoclopramide HCl 10 mg tablet See Rx Instructions .Route 04/26/25 06/03/25 Rx .COMPLEX #30 tabs gabapentin 300 mg capsule 600 mg (2 x 300 mg) PO BEDTIME 05/03/25 06/03/25 Rx #180 caps methocarbamol 500 mg tablet See Rx Instructions .Route 05/03/25 06/03/25 Rx .COMPLEX #60 tabs atorvastatin 20 mg tablet See Rx Instructions .Route 05/24/25 06/03/25 Rx .COMPLEX #90 tabs methylphenidate HCl 10 mg tablet 10 mg PO BID #60 tabs 05/24/25 06/03/25 Rx (Ritalin) fluoxetine 20 mg capsule 60 mg (3 x 20 mg) PO DAILY #270 05/31/25 06/03/25 Rx caps ondansetron 4 mg disintegrating 4 mg PO Q6H PRN nausea and 06/02/25 06/03/25 Rx tablet vomiting #20 tabs propranolol 10 mg tablet 10 mg PO BID PRN for anxiety 06/03/25 06/03/25 History Allergies Allergy/AdvReac Type Severity Reaction Status Date / Time amoxapine (AMOXAPINE) Allergy Intermediate Verified 06/02/25 06:50 penicillin G (PENICILLIN G) Allergy Unknown cillin Verified 06/03/25 15:00 family Exam Vital Signs (past 8 hours): - 06/04/25 15:13 Temperature 97.8 F Pulse Rate 87 Respiratory Rate 24 Blood Pressure 141/82 H Pulse Oximetry 100 Oxygen Delivery Method Room Air Oxygen Delivery Method Room Air Oxygen Flow Rate 0 Const General: diaphoretic and ill appearing GI Palpation: soft Objective Labs 06/04/25 05:54 06/04/25 05:54 Labs: Laboratory Results - last 24 hr 06/04/25 05:54 WBC 8.1 RBC 4.00 Hgb 12.0 Hct 35.6 L MCV 89.1 MCH 30.1 MCHC 33.8 RDW 14.1 Plt Count 324 Neut % (Auto) 77.0 H Lymph % (Auto) 16.6 L [place] % (Auto) 5.8 Eos % (Auto) 0.1 L Baso % (Auto) 0.5 Neut # (Auto) 6300 Lymph # (Auto) 1400 [place] # (Auto) 500 Eos # (Auto) 0 Baso # (Auto) 0 Sodium 136 L Potassium 3.8 Chloride 107 Carbon Dioxide 22 BUN 5 L Creatinine 0.61 Estimated GFR > 60 BUN/Creatinine Ratio 8.2 Glucose 121 H Calcium 9.0 Magnesium 1.7 Total Bilirubin 0.4 AST 27 ALT 18 Alkaline Phosphatase 86 Total Protein 7.0 Albumin 3.9 Globulin 3.1 Albumin/Globulin Ratio 1.3 [facility] Medical History (Updated 06/04/25 @ 16:10 by Dom Restrepo MD) Cholelithiasis Anxiety with depression Diverticulosis of large intestine (~04/2017) Irregular menstrual cycle (2007) Ovarian cyst (2005) ADHD (attention deficit hyperactivity disorder) (2007) Generalized headaches Migraines Restless leg syndrome (2013) Chronic back pain Scoliosis Fractures Surgical History (Updated 06/03/25 @ 08:03 by Madhav Durbin MD) Status post cholecystectomy Family History Father No problems noted. Mother No problems noted. Social History household members: spouse and children Tobacco & Substance Use alcohol intake: current Assessment & Plan Assessment and plan (1) Nausea and vomiting: Qualifiers: Vomiting type: bilious vomiting Qualified Code(s): R11.14 - Bilious vomiting Status: Acute Plan I explained to Jackelyn that the findings of retained gallstones in her right upper quadrant of the most likely cause for her symptoms and that we could perform a robotic removal of the residual gallstones, suctioned out any retained fluid and most likely leave a temporary drain. I emphasized that I am not certain that the retained gallstones are the cause of her symptoms but there is no other obvious candidate. She would like to proceed. Time-Based Coding :: [TOTAL MINUTES] spent with patient and on the chart (including review of chart, obtaining history, exam, reviewing outside data, placing orders, documenting exam and treatment plan, and counseling patient) on [DATE]. PROFEE Charge Codes Inpatient or Observation consultation: [id number]
--- NOTE | 2025-06-04 16:40 | SUR.OPER ---
Supine on pink padded OR bed, head on pillow, arms padded and tucked at sides, legs uncrossed, safety belt at thigh, tape over blanket over lower legs .
[2025-06-04] MEDS: ACETAMINOPHEN IV 1,000 MG/100 ML VIAL 400 MG IV (16:47)
[2025-06-04] MEDS: LACTATED RINGERS 1,000 ML 42 ML IV (18:13)
[2025-06-04] MEDS: metroNIDAZOLE 500 MG/100 ML PIGGYBACK 100 MG IV (18:43)
[2025-06-04] MEDS: CIPROFLOXACIN 400 MG/200 ML PIGGYBACK 200 MG IV (18:46)
--- NOTE | 2025-06-04 19:32 | P.OP_ITS ---
Operative Date/Time/Diagnoses Date of procedure: 06/04/25 Time of procedure: 19:32 Pre-op diagnosis: Retained gallstones and right upper quadrant abscess Post-op diagnosis: same Procedure & Clinicians Procedure: Robotic retrieval of retained gallstones and drainage of intra-abdominal abscess Same procedure(s) as scheduled: Yes Surgeon: Dom Restrepo Assisted?: No Anesthesia Type: General Operative Notes Findings: Multiple gallstones of various size deep in Morison's pouch with contained purulent abscess Applied: drain(s) Estimated Blood Loss (mL): 30 Procedure in detail: The patient is a 50-year-old woman who underwent a laparoscopic cholecystectomy with Dr. Hurley about five months prior. She had experienced persistent waves of nausea vomiting and abdominal pain over the ensuing five months. A CT scan showed retained gallstones in Morison's pouch inferior and posterior to the right lobe of the liver. The patient was consented for a robotic retrieval of the gallstones and drainage of an abscess. The patient was given Ancef for preoperative antibiotic. The patient was brought to the operating room and placed on the table in the supine position and general endotracheal anesthesia was induced. The abdomen was prepped and draped in the usual fashion and a time-out was performed. A supraumbilical cutdown was performed to gain access to the abdomen. The Horner port was placed. The camera was inserted and there was no evidence of an injury from the entry. An 8 mm port was placed in the left upper quadrant and two 8 mm ports were placed in the right lower quadrant. The robot was docked. Adhesions between the transverse colon and liver were divided sharply with the hot scissors. There were adhesions of the mesenteric tissue to the inferior surface of the right lobe of the liver. These were carefully dissected taking care not to injure the colon. Combination of sharp dissection was used with a hot scissors and blunt dissection with the suction [employer] school computer science teacher. Eventually the stones were found encased in fibrotic scar tissue between the Gerota's fascia and the inferior surface of the posterior right lobe of the liver. Several large faceted stones were removed from the abscess cavity. Purulent fluid was suctioned out of the abscess cavity. Eventually Endo-Catch retrieval bag was brought in and the stones were collected and placed in the bag. Smaller fragments of stone were suctioned away. The right upper quadrant was irrigated until everything returned clear. Finally we brought in 19 round Sravan drain through the right lateral port incision and placed the end of the drain in the abscess cavity. The drain was secured to the skin with a stitch. The robot was undocked and the 8 mm ports were removed under direct vision. The supraumbilical Horner port was closed with 2 interrupted 0 Vicryl sutures. Skin was closed with 4-0 Monocryl and Steri-Strips. Dressings were applied. The drain was connected to a bulb suctioned. The patient was brought to recovery room. Specimen: Retained gallstone Complications: none Post-operative Condition: stable Disposition: PACU
[2025-06-05] MEDS: metroNIDAZOLE 500 MG/100 ML PIGGYBACK 100 MG IV ×4 (02:29→20:01)
[2025-06-05] MEDS: ONDANSETRON 4 MG/2 ML INJ IV ×4 (02:31→21:30)
[2025-06-05] MEDS: METOCLOPRAMIDE 10 MG/2 ML INJ IV ×4 (02:58→20:00)
[2025-06-05 03:00] VITALS: BP 117/71; PULSE 68; RESP 18; TEMP 36.6; O2SAT 93
[2025-06-05] MEDS: CIPROFLOXACIN 400 MG/200 ML PIGGYBACK 200 MG IV ×2 (04:50→18:14)
[2025-06-05 05:58] LABS: Blood Urea Nitrogen 4 mg/dL (7-17); Calcium 8.8 mg/dL (8.4-10.2); Carbon Dioxide 24 mmol/L (22-32); Chloride 105 mmol/L (98-107); Estimated Glomerular Filt Rate > 60 mL/min (>60); Glucose 129 mg/dL (70-99); HEMOLYSIS < 15 (0-50); Magnesium 1.6 mg/dL (1.6-2.3); Potassium 3.4 mmol/L (3.4-5.1); Sodium 137 mmol/L (137-145)
[2025-06-05 07:00] VITALS: O2SAT 95
[2025-06-05 08:06] VITALS: BP 112/68; PULSE 60; RESP 14; TEMP 36.7; O2SAT 95
[2025-06-05] MEDS: MAGNESIUM CHLORIDE 64 MG TABLET 128 MG PO (08:35)
[2025-06-05] MEDS: POTASSIUM CHLORIDE 20 MEQ TAB 40 MEQ PO (08:35)
[2025-06-05] MEDS: SENNOSIDES 8.6 MG TABLET PO (08:36)
[2025-06-05] MEDS: ENOXAPARIN 40 MG/0.4 ML SYRINGE SUBCUT (08:46)
[2025-06-05] MEDS: MORPHINE 2 MG/ML INJ IV (10:55)
[2025-06-05] MEDS: DEXTROSE 5%-LACTATED RINGERS 1,000 ML 125 ML IV ×2 (10:57→19:59)
[2025-06-05] MEDS: HYDROmorphone 2 MG/ML SYRINGE IV (12:22)
[2025-06-05] MEDS: ACETAMINOPHEN IV 1,000 MG/100 ML VIAL 400 MG IV (12:23)
--- NOTE | 2025-06-05 13:05 | PM.PN.1 ---
Subjective Subjective Date Patient Seen: 06/05/25 Time Patient Seen: 13:05 Interval history: 50-year-old female who is seen in [facility] for PCP Dr. Sanchez. Patient is primarily surgical patient. Patient underwent exploratory laparoscopy for gallstones posterior liver likely complication from cholecystectomy in December. Please see op note. Patient continues to have severe pain and nausea and vomiting and dry heaving. There was evidence of purulent discharge and abdomen was cleaned out and drain is in place draining serosanguineous fluid. No evidence of apparent discharge. Patient awakens and denies chest pain or shortness a breath but still having abdominal pain and nausea and vomiting 12 point review of systems is otherwise negative Exam Vital Signs (past 8 hours): - 06/05/25 07:00 06/05/25 07:00 06/05/25 08:06 Temperature 98.0 F Pulse Rate 60 Respiratory Rate 14 Blood Pressure 112/68 Pulse Oximetry 95 95 Oxygen Delivery Method Nasal Cannula Room Air Oxygen Flow Rate 6 6 Fraction of Inspired Oxygen 36 SaO2/FiO2 Ratio 261 Oxygen Delivery Method Room Air Oxygen Flow Rate 6 Narrative Exam Narrative: Afebrile vital signs are stable HEENT is unremarkable Neck is supple Chest: Clear to auscultation Cor regular rate and rhythm without murmur Abdomen: Positive bowel sounds, soft dressings in place and drain present Extremities no edema Neurologic exam nonfocal other than sedated Objective Labs 06/04/25 05:54 06/05/25 05:11 Labs: Laboratory Results - last 24 hr 06/05/25 05:11 Sodium 137 Potassium 3.4 Chloride 105 Carbon Dioxide 24 BUN 4 L Creatinine 0.57 Estimated GFR > 60 BUN/Creatinine Ratio 7.0 Glucose 129 H Calcium 8.8 Magnesium 1.6 PFSH Medical History (Updated 06/04/25 @ 16:10 by Dom Restrepo MD) Cholelithiasis Anxiety with depression Diverticulosis of large intestine (~04/2017) Irregular menstrual cycle (2007) Ovarian cyst (2005) ADHD (attention deficit hyperactivity disorder) (2007) Generalized headaches Migraines Restless leg syndrome (2013) Chronic back pain Scoliosis Fractures Surgical History (Updated 06/03/25 @ 08:03 by Madhav Durbin MD) Status post cholecystectomy Family History Father No problems noted. Mother No problems noted. Social History household members: spouse and children alcohol intake: current Assessment & Plan Assessment & Plan narrative: Pt is a 50yo with ADHD, anxiety/depression, hyperlipidemia, and restless leg syndrome who presented with persistent nausea and vomiting. Postop day 1. Status post exploratory lap 1) Nausea and vomiting, RUQ abdominal pain: Retained gallstones with purulent discharge found at surgery -postop per surgery - Continue Ondansetron, Metoclopramide. Addition of Promethazine. - Senna to help with constipation - Continue mIVF at 125cc/hr - Morphine and Dilaudid PRN for pain -will trend amylase and lipase 2) Migraine: - Sumatriptan PRN - Antinausea medications as above PRN 3) Anxiety/depression: Stable - Hold Fluoxetine until tolerating PO better. - Propranolol PRN 4) ADHD: Stable - Hold Adderall until tolerating PO better 5) Hyperlipidemia: - Hold statin until tolerating PO better 6) Restless leg syndrome: Stable DVT ppx: Lovenox FEN: Per surgery Code: Full 52 minutes spent with patient in reviewing chart discussing with nursing meeting with patient and family and discussing, formulating a plan and documentation Time-Based Coding :: [TOTAL MINUTES] spent with patient and on the chart (including review of chart, obtaining history, exam, reviewing outside data, placing orders, documenting exam and treatment plan, and counseling patient) on [DATE].
[2025-06-05 13:18] LABS: Amylase 80 U/L (30-110); Lipase 38 U/L (23-300)
[2025-06-05] MEDS: SODIUM CHLORIDE 0.9% FLUSH 10 ML IV (14:07)
--- NOTE | 2025-06-05 14:38 | P.PN_ITS ---
Subjective Subjective Date Patient Seen: 06/05/25 Time Patient Seen: 14:38 Interval history: Jackelyn is feeling slightly better today. Exam Vital Signs (past 8 hours): - 06/05/25 07:00 06/05/25 07:00 06/05/25 08:06 Temperature 98.0 F Pulse Rate 60 Respiratory Rate 14 Blood Pressure 112/68 Pulse Oximetry 95 95 Oxygen Delivery Method Nasal Cannula Room Air Oxygen Flow Rate 6 6 Fraction of Inspired Oxygen 36 SaO2/FiO2 Ratio 261 Oxygen Delivery Method Room Air Oxygen Flow Rate 6 Narrative Exam Narrative: Abdomen is soft Drain output is serosanguineous Objective Labs 06/04/25 05:54 06/05/25 05:11 Labs: Laboratory Results - last 24 hr 06/05/25 05:11 Sodium 137 Potassium 3.4 Chloride 105 Carbon Dioxide 24 BUN 4 L Creatinine 0.57 Estimated GFR > 60 BUN/Creatinine Ratio 7.0 Glucose 129 H Calcium 8.8 Magnesium 1.6 Amylase 80 Lipase 38 PFS Medical History (Updated 06/04/25 @ 16:10 by Dom Restrepo MD) Cholelithiasis Anxiety with depression Diverticulosis of large intestine (~04/2017) Irregular menstrual cycle (2007) Ovarian cyst (2005) ADHD (attention deficit hyperactivity disorder) (2007) Generalized headaches Migraines Restless leg syndrome (2013) Chronic back pain Scoliosis Fractures Surgical History (Updated 06/03/25 @ 08:03 by Madhav Durbin MD) Status post cholecystectomy Family History Father No problems noted. Mother No problems noted. Social History household members: spouse and children alcohol intake: current Assessment & Plan Assessment and plan (1) Nausea and vomiting: Qualifiers: Vomiting type: bilious vomiting Qualified Code(s): R11.14 - Bilious vomiting Status: Acute Plan Continue IV antibiotics Check labs tomorrow morning Advance diet as tolerates If she feels significantly better tomorrow we can pull the drain, stop antibiotics and discharge home Time-Based Coding :: [TOTAL MINUTES] spent with patient and on the chart (including review of chart, obtaining history, exam, reviewing outside data, placing orders, documenting exam and treatment plan, and counseling patient) on [DATE]. PROFEE Internet Developer Document charge(s): No
[2025-06-05] MEDS: ONDANSETRON 8 MG in SODIUM CHLORIDE 0.9% 50 ML 216 MG IV (15:20)
[2025-06-05] MEDS: ONDANSETRON 4 MG ODT SL ×2 (16:44→20:00)
[2025-06-05 20:00] VITALS: BP 102/58; PULSE 79; RESP 18; TEMP 36.3; O2SAT 95
[2025-06-05 22:30] VITALS: O2SAT 95
[2025-06-05] MEDS: PROMETHAZINE 25 MG TABLET 12.5 MG PO (22:58)
[2025-06-06] MEDS: metroNIDAZOLE 500 MG/100 ML PIGGYBACK 100 MG IV (02:53)
[2025-06-06] MEDS: ONDANSETRON 4 MG/2 ML INJ IV (02:54)
[2025-06-06] MEDS: METOCLOPRAMIDE 10 MG/2 ML INJ IV ×2 (02:54→09:56)
[2025-06-06] MEDS: PROMETHAZINE 25 MG TABLET 12.5 MG PO (05:07)
[2025-06-06] MEDS: CIPROFLOXACIN 400 MG/200 ML PIGGYBACK 200 MG IV (05:09)
[2025-06-06] MEDS: DEXTROSE 5%-LACTATED RINGERS 1,000 ML 125 ML IV (06:33)
[2025-06-06 06:35] LABS: Add Manual Diff / Slide Review NO; Hematocrit 31.0 % (36-46); Hemoglobin 10.6 g/dL (12.0-16.0); Lymphocytes Absolute Auto 2300 /uL (1100-4500); Mean Corpuscular HGB Conc 34.2 % (30-36); Mean Corpuscular Hemoglobin 30.6 PG (26-34); Mean Corpuscular Volume 89.5 fL (80-100); Platelet Count 267 X10^3/uL (150-400)
[2025-06-06 06:36] LABS: Alanine Aminotransferase 26 IU/L (<35); Albumin 3.2 g/dL (3.5-5.0); Albumin Globulin Ratio 1.1 (1.0-2.8); Alkaline Phosphatase 79 U/L (38-126); Blood Urea Nitrogen 3 mg/dL (7-17); Calcium 8.6 mg/dL (8.4-10.2); Carbon Dioxide 28 mmol/L (22-32); Chloride 104 mmol/L (98-107); Estimated Glomerular Filt Rate > 60 mL/min (>60); Globulin 2.9 g/dL (1.7-4.1); Glucose 94 mg/dL (70-99); HEMOLYSIS < 15 (0-50); Potassium 3.2 mmol/L (3.4-5.1); Sodium 135 mmol/L (137-145); Total Protein 6.1 g/dL (6.3-8.2)
[2025-06-06 08:24] VITALS: BP 115/66; PULSE 85; RESP 18; TEMP 37; O2SAT 91
[2025-06-06] MEDS: ENOXAPARIN 40 MG/0.4 ML SYRINGE SUBCUT (09:56)
[2025-06-06] MEDS: SENNOSIDES 8.6 MG TABLET PO (09:56)
[2025-06-06] MEDS: POTASSIUM CHLORIDE 20 MEQ TAB 40 MEQ PO ×2 (10:34→17:57)
--- NOTE | 2025-06-06 13:13 | PM.PN.IH.1 ---
Subjective Subjective Date Patient Seen: 06/06/25 Time Patient Seen: 13:13 Interval history: Still requiring rather significant IV pain medication No fevers Normal WBC Exam Vital Signs (past 8 hours): - 06/06/25 08:24 Temperature 98.6 F Pulse Rate 85 Respiratory Rate 18 Blood Pressure 115/66 Pulse Oximetry 91 Oxygen Flow Rate 4 Fraction of Inspired Oxygen 36 SaO2/FiO2 Ratio 261 Oxygen Delivery Method Nasal Cannula Oxygen Flow Rate 4 Narrative Exam Narrative: Sleeping Abdomen is soft Drain output serosanguineous Objective Labs 06/06/25 05:28 06/06/25 05:28 Labs: Laboratory Results - last 24 hr 06/05/25 06/06/25 05:11 05:28 WBC 8.8 RBC 3.46 L Hgb 10.6 L Hct 31.0 L MCV 89.5 MCH 30.6 MCHC 34.2 RDW 14.3 Plt Count 267 Neut % (Auto) 62.6 Lymph % (Auto) 26.5 [place] % (Auto) 9.3 Eos % (Auto) 1.2 L Baso % (Auto) 0.4 Neut # (Auto) 5500 Lymph # (Auto) 2300 [place] # (Auto) 800 Eos # (Auto) 100 Baso # (Auto) 0 Sodium 135 L Potassium 3.2 L Chloride 104 Carbon Dioxide 28 BUN 3 L Creatinine 0.74 Estimated GFR > 60 BUN/Creatinine Ratio 4.1 L Glucose 94 Calcium 8.6 Total Bilirubin 0.4 AST 30 ALT 26 Alkaline Phosphatase 79 Total Protein 6.1 L Albumin 3.2 L Globulin 2.9 Albumin/Globulin Ratio 1.1 Amylase 80 Lipase 38 [facility] Medical History (Updated 06/04/25 @ 16:10 by Dom Restrepo MD) Cholelithiasis Anxiety with depression Diverticulosis of large intestine (~04/2017) Irregular menstrual cycle (2007) Ovarian cyst (2005) ADHD (attention deficit hyperactivity disorder) (2007) Generalized headaches Migraines Restless leg syndrome (2013) Chronic back pain Scoliosis Fractures Surgical History (Updated 06/03/25 @ 08:03 by Madhav Durbin MD) Status post cholecystectomy Family History Father No problems noted. Mother No problems noted. Social History household members: spouse and children alcohol intake: current Assessment & Plan Assessment and plan (1) Nausea and vomiting: Qualifiers: Vomiting type: bilious vomiting Qualified Code(s): R11.14 - Bilious vomiting Status: Acute Plan Stop IV antibiotics and advance diet as tolerated Time-Based Coding :: [TOTAL MINUTES] spent with patient and on the chart (including review of chart, obtaining history, exam, reviewing outside data, placing orders, documenting exam and treatment plan, and counseling patient) on [DATE]. PROFEE Hydroelectric Machinery Mechanic Helper Document charge(s): No
--- NOTE | 2025-06-06 13:15 | PM.PN.1 ---
Subjective Subjective Date Patient Seen: 06/06/25 Time Patient Seen: 13:15 Interval history: Patient had unremarkable night. She was feeling better she was having less pain and less nausea. She still is having difficulty eating but has been able to have some clear liquids. She was able to drink water. She has been ambulating and did pass flatus but has not had a bowel movement. She was still receiving medications Reglan and Zofran for nausea and is receiving Dilaudid 0.5 mg x2 this morning from 8:00 a.m. until 12:00 p.m.. Patient continues to be afebrile in his putting out blood-tinged fluid but no apparent discharge from drain. Twelve point review of systems is otherwise negative No shortness a breath or chest pain Exam Vital Signs (past 8 hours): - 06/06/25 08:24 Temperature 98.6 F Pulse Rate 85 Respiratory Rate 18 Blood Pressure 115/66 Pulse Oximetry 91 Oxygen Flow Rate 4 Fraction of Inspired Oxygen 36 SaO2/FiO2 Ratio 261 Oxygen Delivery Method Nasal Cannula Oxygen Flow Rate 4 Narrative Exam Narrative: Patient is afebrile vital signs are stable. Patient is alert and oriented in no apparent distress. Patient is able to awaken and converse today. HEENT shows mucous membranes are dry Neck: Supple Chest: Clear to auscultation without wheezes rhonchi or crackles Cor: Regular rate and rhythm Abdomen: Positive bowel sounds, soft, incisions have dressing in place. Drain is in place and working Extremities no edema Neurologic exam nonfocal Objective Labs 06/06/25 05:28 06/06/25 05:28 Labs: Laboratory Results - last 24 hr 06/05/25 06/06/25 05:11 05:28 WBC 8.8 RBC 3.46 L Hgb 10.6 L Hct 31.0 L MCV 89.5 MCH 30.6 MCHC 34.2 RDW 14.3 Plt Count 267 Neut % (Auto) 62.6 Lymph % (Auto) 26.5 [place] % (Auto) 9.3 Eos % (Auto) 1.2 L Baso % (Auto) 0.4 Neut # (Auto) 5500 Lymph # (Auto) 2300 [place] # (Auto) 800 Eos # (Auto) 100 Baso # (Auto) 0 Sodium 135 L Potassium 3.2 L Chloride 104 Carbon Dioxide 28 BUN 3 L Creatinine 0.74 Estimated GFR > 60 BUN/Creatinine Ratio 4.1 L Glucose 94 Calcium 8.6 Total Bilirubin 0.4 AST 30 ALT 26 Alkaline Phosphatase 79 Total Protein 6.1 L Albumin 3.2 L Globulin 2.9 Albumin/Globulin Ratio 1.1 Amylase 80 Lipase 38 PFSH Medical History (Updated 06/04/25 @ 16:10 by Dom Restrepo MD) Cholelithiasis Anxiety with depression Diverticulosis of large intestine (~04/2017) Irregular menstrual cycle (2007) Ovarian cyst (2005) ADHD (attention deficit hyperactivity disorder) (2007) Generalized headaches Migraines Restless leg syndrome (2013) Chronic back pain Scoliosis Fractures Surgical History (Updated 06/03/25 @ 08:03 by Madhav Durbin MD) Status post cholecystectomy Family History Father No problems noted. Mother No problems noted. Social History household members: spouse and children alcohol intake: current Assessment & Plan Assessment & Plan narrative: Pt is a 50yo with ADHD, anxiety/depression, hyperlipidemia, and restless leg syndrome who presented with persistent nausea and vomiting. Postop day 2. Status post exploratory lap 1) Nausea and vomiting, RUQ abdominal pain: Retained gallstones with purulent discharge found at surgery -postop per surgery - Continue Ondansetron, Metoclopramide. Addition of Promethazine. - Senna to help with constipation - Continue mIVF at 125cc/hr - Morphine and Dilaudid PRN for pain -will trend amylase and lipase which were normal as were LFTs. Will stop metronidazole on Cipro which were given perioperatively due to purulent discharge found during surgery. Remainder of gallstones were removed. Perhaps metronidazole was contributing to her symptoms of nausea so we will see. 2) Migraine: - Sumatriptan PRN - Antinausea medications as above PRN 3) Anxiety/depression: Stable - I think we can go ahead and start her fluoxetine - Propranolol PRN 4) ADHD: Stable - Hold Adderall until tolerating PO better. Will continue to hold 5) Hyperlipidemia: - Hold statin until tolerating PO better 6) Restless leg syndrome: Stable 7) patient with history of nephrolithiasis with some dysuria. Could be related to passing stones 5 days ago. We will go ahead and do a urinalysis. DVT ppx: Lovenox FEN: Per surgery Code: Full 50 minutes spent with patient in reviewing chart discussing with nursing meeting with patient and family and discussing, formulating a plan and documentation Time-Based Coding :: [TOTAL MINUTES] spent with patient and on the chart (including review of chart, obtaining history, exam, reviewing outside data, placing orders, documenting exam and treatment plan, and counseling patient) on [DATE].
[2025-06-06] MEDS: ONDANSETRON 4 MG ODT SL (14:00)
--- NOTE | 2025-06-06 16:34 | CM.DPNOTE ---
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 on 4ltrs O2. on clear liquid this morning, plan to advance diet as tolerated. slow recovery POD2. ambulating. no new CM needs identified at this time. P: home when medically stable and likely OP f/u recommended. will continue to follow as needed in case any additional CM needs should arise Madiha Davenport, ABRAM
[2025-06-06] MEDS: ACETAMINOPHEN 325 MG TABLET 650 MG PO (18:00)
[2025-06-06 20:00] VITALS: BP 106/57; PULSE 85; RESP 18; TEMP 36.8; O2SAT 93
[2025-06-07] MEDS: ONDANSETRON 4 MG ODT SL ×2 (04:03→20:25)
[2025-06-07 05:11] LABS: Add Manual Diff / Slide Review NO; Hematocrit 34.1 % (36-46); Hemoglobin 11.5 g/dL (12.0-16.0); Lymphocytes Absolute Auto 1600 /uL (1100-4500); Mean Corpuscular HGB Conc 33.8 % (30-36); Mean Corpuscular Hemoglobin 30.2 PG (26-34); Mean Corpuscular Volume 89.3 fL (80-100); Platelet Count 294 X10^3/uL (150-400)
[2025-06-07 05:22] LABS: Blood Urea Nitrogen 5 mg/dL (7-17); Calcium 9.1 mg/dL (8.4-10.2); Carbon Dioxide 28 mmol/L (22-32); Chloride 105 mmol/L (98-107); Estimated Glomerular Filt Rate > 60 mL/min (>60); Glucose 100 mg/dL (70-99); HEMOLYSIS < 15 (0-50); Potassium 4.1 mmol/L (3.4-5.1); Sodium 139 mmol/L (137-145)
--- NOTE | 2025-06-07 05:36 | PC.NURSE ---
45 ml per SUMMER drain. weaned down to oral SR oxycodone with good results. voiding well. taking po well. alert, in good spirits and less anxious. dressing dry abd intact
--- NOTE | 2025-06-07 06:28 | PC.NURSE ---
md at bedside. pt resting comfortably.
--- NOTE | 2025-06-07 06:41 | P.PN_ITS ---
Subjective Subjective Date Patient Seen: 06/07/25 Time Patient Seen: 06:41 Interval history: C/O nausea, incisional pain Exam Vital Signs (past 8 hours): Fraction of Inspired Oxygen 36 SaO2/FiO2 Ratio 261 Oxygen Delivery Method Room Air Oxygen Flow Rate 0 Const General: comfortable Orientation: alert and oriented x3 Resp Effort & Inspection: normal respiratory effort and able to speak in complete sentences Cardio Rate: regular rate GI Other: Soft, dressings intact without erythema, small amount of serosanguinous drainage around drain site and in reservoir Objective Labs 06/07/25 04:43 06/07/25 04:43 Labs: Laboratory Results - last 24 hr 06/07/25 04:43 WBC 6.8 RBC 3.82 L Hgb 11.5 L Hct 34.1 L MCV 89.3 MCH 30.2 MCHC 33.8 RDW 14.1 Plt Count 294 Neut % (Auto) 63.6 Lymph % (Auto) 22.9 L [place] % (Auto) 9.8 Eos % (Auto) 2.9 Baso % (Auto) 0.8 Neut # (Auto) 4300 Lymph # (Auto) 1600 [place] # (Auto) 700 Eos # (Auto) 200 Baso # (Auto) 100 Sodium 139 Potassium 4.1 Chloride 105 Carbon Dioxide 28 BUN 5 L Creatinine 0.78 Estimated GFR > 60 BUN/Creatinine Ratio 6.4 Glucose 100 H Calcium 9.1 PFSH Medical History (Updated 06/07/25 @ 06:45 by Johnathon Miller MD) Cholelithiasis Anxiety with depression Diverticulosis of large intestine (~04/2017) Irregular menstrual cycle (2007) Ovarian cyst (2005) ADHD (attention deficit hyperactivity disorder) (2007) Generalized headaches Migraines Restless leg syndrome (2013) Chronic back pain Scoliosis Fractures Surgical History (Updated 06/03/25 @ 08:03 by Madhav Durbin MD) Status post cholecystectomy Family History Father No problems noted. Mother No problems noted. Social History household members: spouse and children alcohol intake: current Assessment & Plan Assessment and plan (1) Nausea and vomiting: Qualifiers: Vomiting type: bilious vomiting Qualified Code(s): R11.14 - Bilious vomiting Status: Acute (2) Retained gallstones following laparoscopic cholecystectomy: Status: Acute Plan POD#3 removal retained gallstones, RUQ drain Drain 45cc/12 hours, serosanguinous +BM Tolerating diet, small amounts AVSS Pain controlled with oral pain meds Time-Based Coding :: [TOTAL MINUTES] spent with patient and on the chart (including review of chart, obtaining history, exam, reviewing outside data, placing orders, documenting exam and treatment plan, and counseling patient) on [DATE]. PROFEE Orientation & Mobility Specialist Document charge(s): Yes Charge Codes Subsequent inpatient/observation care: [id number]
--- NOTE | 2025-06-07 08:40 | PM.PN.IH.1 ---
Subjective Subjective Interval history: The pt reports ongoing diffuse abdominal pain. She feels that she has been taking too many pain medications, however, and wants to wean back slightly. She really wants to get home, but continues to feel that the nausea is limiting her PO intake significantly. She did have diarrhea yesterday. Exam Vital Signs (past 8 hours): Fraction of Inspired Oxygen 36 SaO2/FiO2 Ratio 261 Oxygen Delivery Method Room Air Oxygen Flow Rate 0 Narrative Exam Narrative: Gen: NAD, sitting comfortably in bed CV: RRR, no murmurs Resp: clear to auscultation bilaterally Abd: soft, diffusely tender to palpation without rebound/guarding/rigidity, normoactive bowel sounds, dressings c/d/i Ext: no edema Objective Labs 06/07/25 04:43 06/07/25 04:43 Labs: Laboratory Results - last 24 hr 06/07/25 04:43 WBC 6.8 RBC 3.82 L Hgb 11.5 L Hct 34.1 L MCV 89.3 MCH 30.2 MCHC 33.8 RDW 14.1 Plt Count 294 Neut % (Auto) 63.6 Lymph % (Auto) 22.9 L [place] % (Auto) 9.8 Eos % (Auto) 2.9 Baso % (Auto) 0.8 Neut # (Auto) 4300 Lymph # (Auto) 1600 [place] # (Auto) 700 Eos # (Auto) 200 Baso # (Auto) 100 Sodium 139 Potassium 4.1 Chloride 105 Carbon Dioxide 28 BUN 5 L Creatinine 0.78 Estimated GFR > 60 BUN/Creatinine Ratio 6.4 Glucose 100 H Calcium 9.1 PFSH Medical History (Updated 06/07/25 @ 06:45 by Johnathon Miller MD) Cholelithiasis Anxiety with depression Diverticulosis of large intestine (~04/2017) Irregular menstrual cycle (2007) Ovarian cyst (2005) ADHD (attention deficit hyperactivity disorder) (2007) Generalized headaches Migraines Restless leg syndrome (2013) Chronic back pain Scoliosis Fractures Surgical History (Updated 06/03/25 @ 08:03 by Madhav Durbin MD) Status post cholecystectomy Family History Father No problems noted. Mother No problems noted. Social History household members: spouse and children alcohol intake: current Assessment & Plan Assessment & Plan narrative: Pt is a 50yo with ADHD, anxiety/depression, hyperlipidemia, and restless leg syndrome who presented with persistent nausea and vomiting. 1) Nausea and vomiting, RUQ abdominal pain: POD#3 s/p robotic retrieval of stones and drainage intra-abdominal abscess. S/P antibiotics postoperatively, WBC count normal. - Surgery following, appreciate ongoing care - Continue Ondansetron, Promethazine for nausea - Oxycodone for pain. Dilaudid for breakthrough pain - will try to avoid. - Continue mIVF at 125cc/hr - Out of bed more today, shower, etc 2) Migraine: - Sumatriptan PRN - Antinausea medications as above PRN 3) Anxiety/depression: Stable - Continue home Fluoxetine - Propranolol PRN 4) ADHD: Stable - Hold Adderall until tolerating PO better. Will continue to hold 5) Hyperlipidemia: - Hold statin until tolerating PO better 6) Restless leg syndrome: Stable DVT ppx: Lovenox FEN: Per surgery Code: Full Dispo: Pending ongoing improved pain control, tolerance of PO, etc. Likely d/c later today or tomorrow. Time-Based Coding :: [TOTAL MINUTES] spent with patient and on the chart (including review of chart, obtaining history, exam, reviewing outside data, placing orders, documenting exam and treatment plan, and counseling patient) on [DATE]. PROFEE Diamond Powder Mixer Document charge(s): Yes Charge Codes Subsequent inpatient/observation care: [id number]
[2025-06-07 09:00] VITALS: BP 124/72; PULSE 77; O2SAT 98
[2025-06-07] MEDS: ENOXAPARIN 40 MG/0.4 ML SYRINGE SUBCUT (10:28)
[2025-06-07] MEDS: SENNOSIDES 8.6 MG TABLET PO (10:28)
--- NOTE | 2025-06-07 12:14 | CM.DPNOTE ---
DCP note per provider notes, pending pain control and PO intake dc later today vs tomorrow. remains nauseated which is impacting her tolerating a diet. P: dc once can tolerate a general diet. no needs at this time. will continue to follow in case any additional DCP needs should arise ABRAM Cano
[2025-06-07 19:00] VITALS: BP 109/60; PULSE 67; RESP 18; TEMP 36.8; O2SAT 93
[2025-06-08 07:00] VITALS: BP 109/60; PULSE 68; RESP 18; TEMP 36.9; O2SAT 98
--- NOTE | 2025-06-08 08:17 | P.DS_ITS ---
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 Came to the ER earlier day of admission no serious findings was rehydrated seem to be improved and was discharged home but had return of symptoms and so returned to the ER and it was elected to admit her for ongoing treatment Only findings have been a bit of mild leukocytosis, some significant metabolic acidosis (felt to be secondary to the ongoing GI symptoms rather than a cause of those symptoms), and gallstones noted near the liver relating back to her laparoscopic cholecystectomy in December of this year with evidence of mild inflammatory process on CT imaging, unchanged from imaging done about 6 weeks ago. Evidence in the colon of maybe some persistent inflammatory change. Patient has been on a GLP 1 agonist for an extended time as well with greater than 50 lb weight loss. This may have contributed to her cholecystitis. She has not had a dose of the semaglutide for several weeks. Also recently restarted her stimulants for ADHD Patient reports these episodes of nausea and vomiting have been ongoing since she had her gallbladder surgery back in December. Discharge Providers Provider Date of admission: 06/04/25 11:36 Discharge Date: 06/08/25 Primary care physician: Susanna Rodarte MD Discharge provider: Susanna Rodarte MD Summary Hospital Course Discharge Diagnosis: Retained gallstones RUQ abscess Migraine Anxiety/depression ADHD Hyperlipidemia Restless leg syndrome Hospital Course: The pt presented with persistent nausea, vomiting, and RUQ abdominal pain. This was initially managed with antiemetics and pain medication. Surgery was consulted, and the pt underwent robotic assisted retrieval of retained gallstones and drainage of intra-abdominal abscess. For 2 days postoperatively she was treated with IV Ciprofloxacin and Metronidazole. The pts symptoms gradually improved postoperatively. At the time of discharge she was tolerating PO with minimal antiemetics. She continued to have postoperative pain, but this was being adequately managed with PO oxycodone. The pt had an abdominal drain in place, which was removed the day of discharge. Status at Discharge Cognitive/behavioral status at discharge: oriented Functional status at discharge: independent ambulation Overall status at discharge: patient is progressing back to baseline Exam Vital Signs (past 8 hours): Fraction of Inspired Oxygen 36 SaO2/FiO2 Ratio 261 Oxygen Delivery Method Room Air Oxygen Flow Rate 0 Narrative Exam Narrative: Gen: NAD, sitting comfortably in bed CV: RRR, no murmurs Resp: clear to auscultation bilaterally Abd: soft, diffusely tender to palpation without rebound/guarding/rigidity, normoactive bowel sounds, dressings c/d/i Ext: no edema Objective Labs 06/07/25 04:43 06/07/25 04:43 [facility] Medical History (Updated 06/07/25 @ 06:45 by Johnathon Miller MD) Cholelithiasis Anxiety with depression Diverticulosis of large intestine (~04/2017) Irregular menstrual cycle (2007) Ovarian cyst (2005) ADHD (attention deficit hyperactivity disorder) (2007) Generalized headaches Migraines Restless leg syndrome (2013) Chronic back pain Scoliosis Fractures Surgical History (Updated 06/03/25 @ 08:03 by Madhav Durbin MD) Status post cholecystectomy Family History Father No problems noted. Mother No problems noted. Social History household members: spouse and children alcohol intake: current Discharge Plan Discharge Plan Patient Disposition: Home Discharge orders & Medications Prescriptions: New ondansetron 4 mg Tablet,Disintegrating 4 mg sublingual Q4HR PRN (Reason: Nausea) Qty: 60 0RF oxycodone 5 mg Tablet 5 mg PO Q3HR PRN (Reason: Pain, Moderate (4-6)) Qty: 30 0RF Continued omeprazole 20 mg capsule,delayed release(DR/EC) 20 mg PO DAILY atorvastatin 20 mg tablet See Rx Instructions .ROUTE .COMPLEX Qty: 90 3RF Dose Instruction: take 1 tablet by mouth once daily Rx Instructions: take 1 tablet by mouth once daily methylphenidate HCl [Ritalin] 10 mg tablet 10 mg PO BID Qty: 60 0RF Patient Comments: PT DOES NOT WANT TO TAKE RIGHT NOW. HAS ONLY TAKEN ONE DOSE sumatriptan succinate 50 mg tablet 50 mg PO Q2-4H PRN (Reason: migraine headache) Qty: 20 0RF metoclopramide HCl 10 mg tablet See Rx Instructions .ROUTE .COMPLEX Qty: 30 3RF Dose Instruction: take 1 tablet by mouth every 6 hours if needed for nausea and vomiting Rx Instructions: take 1 tablet by mouth every 6 hours if needed for nausea and vomiting methocarbamol 500 mg tablet See Rx Instructions .ROUTE .COMPLEX Qty: 60 1RF Dose Instruction: take 1 tablet by mouth four times a day if needed back pain Rx Instructions: take 1 tablet by mouth four times a day if needed back pain gabapentin 300 mg capsule 600 mg PO BEDTIME Qty: 180 3RF fluoxetine 20 mg capsule 60 mg PO DAILY Qty: 270 3RF propranolol 10 mg tablet 10 mg PO BID PRN (Reason: for anxiety) Discontinued ondansetron 4 mg tablet,disintegrating 4 mg PO Q6H PRN (Reason: nausea and vomiting) Qty: 40 0RF semaglutide (weight loss) 0.25 mg/0.5 mL pen injector 0.5 mg SUBCUT QWEEK Qty: 4 0RF Rx Instructions: administer weeks 5 through 8 of therapy ondansetron 4 mg tablet,disintegrating 4 mg PO Q6H PRN (Reason: nausea and vomiting) Qty: 20 0RF Follow up/Referrals: Susanna Rodarte MD [Primary Care Provider, Family Practice] - 2 Weeks Diet/Activity/Treatments Diet: Diet as Tolerated and Regular Skin/Wound/Dressing Care Report to your healthcare provider any signs of infection, such as:: chills, fever, increased pain and unusual drainage Visit Report/Discharge Packet Instructions: DI for Laparoscopy, Oxycodone, [facility]: Wound Care Stand Alone Forms: Patient Portal/API, Stroke Signs & Symptoms Discharge Data Primary Care Provider: Susnana Rodarte PROFEE Charge Codes Discharge inpatient/observation: [id number]
[2025-06-08 09:00] VITALS: O2SAT 96
[2025-06-08] MEDS: SENNOSIDES 8.6 MG TABLET PO (09:11)
--- NOTE | 2025-06-08 09:12 | CM.DPNOTE ---
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 waiting input from surgeon on whether or not the plan is to dc with the drain.? RN to follow up. no new needs at this time. P: dc home today with partner support and OP f/u as needed. no identified barriers to safe dc home at the moment. will continue to follow as needed for DCP coordination Madiha Davenport, ABARM
== END 2025-06-08 11:00 | disposition home or self-care (01) | DRG 356 ==
LOC: ED 19:54 → AC 19:54
PROVIDERS: Emergency Medicine; Family Medicine; Internal Medicine; Surgery; Admitting Provider Family Medicine; Emergency Provider Emergency Medicine; PCP Family Medicine; Referring Provider Emergency Medicine; Visit Provider Family Medicine
PROC: 0W9G4ZZ Drainage of Peritoneal Cavity, Percutaneous Endoscopic Approach (ICD-10-PCS; principal; 2025-06-04 16:00)
DX: K91.86 Retained cholelithiasis following cholecystectomy (principal); K65.1 Peritoneal abscess; E87.20 Acidosis, unspecified; F41.9 Anxiety disorder, unspecified; F32.A Depression, unspecified; F90.9 Attention-deficit hyperactivity disorder, unspecified type; E78.5 Hyperlipidemia, unspecified; G43.909 Migraine, unspecified, not intractable, without status migrainosus; G25.81 Restless legs syndrome; K66.0 Peritoneal adhesions (postprocedural) (postinfection); K59.00 Constipation, unspecified
CPT/HCPCS: 36415; 74177; 80048; 80053; 80076; 80329; 81003; 82009; 82150; 82805; 83036; 83605; 83690; 83735; 84484; 85025; 87040; 87633; 93005; 93010; 94760; 96361; 96374; 96375; 99222; 99232; 99238; 99284; 99291; G0378; G0480; J0131; J0330; J0689; J0744; J0780; J1100; J1171; J1650; J1885; J2060; J2270; J2405; J2704; J2765; J3010; J3490; J7030; J7120; J7121; Q9967

== ENCOUNTER 2025-06-17 14:37 | Emergency (ER) | payer OTHER, SELFPAY ==
[2025-06-17] VITALS (19 sets, daily range): BP systolic 105–144; BP diastolic 57–92; PULSE 73–128; RESP 14–26; O2SAT 91–100; BMI 25.8
--- NOTE | 2025-06-17 14:43 | EKG_ITS ---
[facility]
--- NOTE | 2025-06-17 14:46 | DI.RAD.S_ITS ---
PROCEDURE: XR CHEST 1V
--- NOTE | 2025-06-17 14:46 | ED_ITS ---
HPI - Abdominal Pain
--- NOTE | 2025-06-17 14:46 | DI.CT.S_ITS ---
PROCEDURE: CT ABDOMEN PELVIS W CON
--- NOTE | 2025-06-17 14:46 | EKG_ITS ---
[facility]
--- NOTE | 2025-06-17 14:46 | DI.CT.S_ITS ---
PROCEDURE: CT ANGIO CHEST
--- NOTE | 2025-06-17 14:46 | ED.ABDPAIN ---
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 She denies any sore throat, cough, fever, chills, body aches, urinary complaints, back pain. Related Data Home Medications ?Medication ?Instructions ?Recorded ?Confirmed omeprazole 20 mg capsule,delayed 20 mg PO DAILY 04/04/22 06/03/25 release propranolol 10 mg tablet 10 mg PO BID PRN for anxiety 06/03/25 06/03/25 Previous Rx's ?Medication ?Instructions ?Recorded sumatriptan succinate 50 mg tablet 50 mg PO Q2-4H PRN migraine 04/16/25 headache #20 tabs metoclopramide HCl 10 mg tablet See Rx Instructions .Route 04/26/25 .COMPLEX #30 tabs gabapentin 300 mg capsule 600 mg (2 x 300 mg) PO BEDTIME 05/03/25 #180 caps methocarbamol 500 mg tablet See Rx Instructions .Route 05/03/25 .COMPLEX #60 tabs atorvastatin 20 mg tablet See Rx Instructions .Route 05/24/25 .COMPLEX #90 tabs methylphenidate HCl 10 mg tablet 10 mg PO BID #60 tabs 05/24/25 (Ritalin) fluoxetine 20 mg capsule 60 mg (3 x 20 mg) PO DAILY #270 05/31/25 caps ondansetron 4 mg disintegrating 4 mg sublingual Q4HR PRN Nausea 06/08/25 tablet #60 tabs oxycodone 5 mg tablet 5 mg PO Q3HR PRN Pain, Moderate 06/08/25 (4-6) #30 tabs Allergies Allergy/AdvReac Type Severity Reaction Status Date / Time amoxapine (AMOXAPINE) Allergy Intermediate Verified 06/02/25 06:50 penicillin G (PENICILLIN G) Allergy Unknown cillin Verified 06/03/25 15:00 family Review of Systems <Madhav Christie, DO - Last Filed: 06/17/25 18:02> Review of Systems ROS Unobtainable: All systems reviewed & are unremarkable except as noted in HPI and below Patient History <Madhav Christie DO - Last Filed: 06/17/25 18:02> Medical History (Updated 06/17/25 @ 18:02 by Madhav Christie DO) Cholelithiasis Anxiety with depression Diverticulosis of large intestine (~04/2017) Irregular menstrual cycle (2007) Ovarian cyst (2005) ADHD (attention deficit hyperactivity disorder) (2007) Generalized headaches Migraines Restless leg syndrome (2013) Chronic back pain Scoliosis Fractures Surgical History (Updated 06/03/25 @ 08:03 by Madhav Durbin MD) Status post cholecystectomy Family History Father No problems noted. Mother No problems noted. Social History household members: spouse and children alcohol intake: current tobacco type: cigarettes Alcohol type: beer Exam <Madhav Christie DO - Last Filed: 06/17/25 18:02> Narrative Exam Narrative: GENERAL: [50 year old patient appears stated age. Well-developed patient, in mild distress. HEAD: Atraumatic. Normocephalic. EYES: Pupils equal round and reactive. Extraocular motions intact. No scleral icterus. No injection or drainage. ENT: Nose without bleeding, purulent drainage. Throat without erythema, tonsillar hypertrophy or exudate. Airway patent. NECK: Trachea midline. Non tender CARDIOVASCULAR: Regular rate and rhythm without murmurs, gallops, or rubs. RESPIRATORY: Clear to auscultation. Breath sounds equal bilaterally. No wheezes, rales, or rhonchi. GASTROINTESTINAL: Abdomen soft, epigastric TTP, nondistended. EXTREMITIES: No edema or joint tenderness. BACK: Nontender without deformity or crepitance. No flank tenderness. NEURO: AOx3. SKIN: No rash or erythema of visible areas Initial Vital Signs Initial Vital Signs: Vital Signs Pulse Rate 128 H 06/17/25 14:40 Respiratory Rate 26 H 06/17/25 14:40 Blood Pressure 139/70 06/17/25 14:40 Pulse Oximetry 94 06/17/25 14:40 Oxygen Delivery Method Room Air 06/17/25 14:40 <Mario Jean-Baptiste, DO - Last Filed: 06/17/25 22:14> Initial Vital Signs Initial Vital Signs: Vital Signs Pulse Rate 128 H 06/17/25 14:40 Respiratory Rate 26 H 06/17/25 14:40 Blood Pressure 139/70 06/17/25 14:40 Pulse Oximetry 94 06/17/25 14:40 Oxygen Delivery Method Room Air 06/17/25 14:40 Course <Madhav Christie, DO - Last Filed: 06/17/25 18:02> Orders Ordered: ED Orders 06/17/25 14:46 CT abdomen pelvis w con Stat CT angio chest Stat XR chest 1V Stat EKG-12 Lead Stat 06/17/25 14:53 Complete Blood Count AUTO DIFF Stat Comprehensive Metabolic Panel Stat Lactate (Lactic Acid) Stat Lipase Stat Magnesium Stat NT-proBNP (BNP-Adult 18+) Stat PTT Partial Thromboplastin Juan M Stat Prothrombin Time INR Stat Troponin & CK Cardiac Panel Stat 06/17/25 18:30 Blood Culture Stat Discontinued Medications Diphenhydramine HCl (Diphenhydramine 50 Mg/Ml Vial) 50 mg IV NOW ONE Stop: 06/17/25 15:13 Last Admin: 06/17/25 15:15 Dose: 50 mg Documented By: KEANU Hydromorphone HCl (Hydromorphone 1 Mg/Ml Syringe) 1 mg IV NOW ONE Stop: 06/17/25 16:13 Last Admin: 06/17/25 16:22 Dose: 1 mg Documented By: MEGHA Lactated Ringer's (Lactated Ringers) 1,000 mls @ 1,000 mls/hr IV BOLUS ONE Stop: 06/17/25 15:45 Last Infusion: 06/17/25 16:10 Dose: Infused Documented By: Emely Admin: 06/17/25 14:53 Dose: 1,000 mls/hr Documented By: MEGHA Ertapenem 1 gm/ Sodium (Chloride) 100 mls @ 200 mls/hr IV NOW ONE Stop: 06/17/25 17:41 Last Infusion: 06/17/25 18:35 Dose: Infused Documented By: [facility] Admin: 06/17/25 17:47 Dose: 200 mls/hr Documented By: KEANU Magnesium Sulfate (Magnesium Sulfate) 2 gm in 50 mls @ 150 mls/hr IV NOW ONE Stop: 06/17/25 19:55 Last Infusion: 06/17/25 20:02 Dose: Infused Documented By: MEGHA Co-signed By: Admin: 06/17/25 19:47 Dose: 150 mls/hr Documented By: MEGHA Co-signed By: AXEL Lorazepam (Lorazepam 2 Mg/Ml Inj) 1 mg IV NOW ONE Stop: 06/17/25 19:37 Last Admin: 06/17/25 19:48 Dose: 1 mg Documented By: MEGHA Metoclopramide HCl (Metoclopramide 10 Mg/2 Ml Inj) 10 mg IV NOW ONE Stop: 06/17/25 15:13 Last Admin: 06/17/25 15:15 Dose: 10 mg Documented By: KEANU Morphine Sulfate (Morphine 4 Mg/Ml Inj) 4 mg IV NOW ONE Stop: 06/17/25 14:47 Last Admin: 06/17/25 14:53 Dose: 4 mg Documented By: MEGHA Ondansetron HCl (Ondansetron 4 Mg/2 Ml Inj) 4 mg IV NOW ONE Stop: 06/17/25 14:47 Last Admin: 06/17/25 14:53 Dose: 4 mg Documented By: MEGHA Prochlorperazine (Prochlorperazine 10 Mg/2 Ml Vial) 10 mg IV NOW ONE Stop: 06/17/25 16:13 Last Admin: 06/17/25 16:21 Dose: 10 mg Documented By: MEGHA Vital Signs Vital signs: Vital Signs - 8 hr 06/17/25 14:40 06/17/25 15:03 06/17/25 15:04 Pulse Rate 128 H 99 H 93 H Respiratory Rate 26 H 25 H 24 Blood Pressure 139/70 Pulse Oximetry 94 99 100 Oxygen Delivery Method Room Air 06/17/25 15:04 06/17/25 15:31 06/17/25 15:57 Pulse Rate 83 Respiratory Rate 26 H Blood Pressure 144/92 H 139/69 Pulse Oximetry 100 Oxygen Delivery Method Room Air 06/17/25 15:57 06/17/25 16:00 06/17/25 16:00 Pulse Rate 76 73 Respiratory Rate 24 24 Blood Pressure 141/73 H Pulse Oximetry 99 99 Oxygen Delivery Method 06/17/25 16:21 06/17/25 16:30 06/17/25 16:30 Pulse Rate 87 81 Respiratory Rate 23 Blood Pressure 141/73 H 113/57 L Pulse Oximetry 97 Oxygen Delivery Method 06/17/25 17:00 06/17/25 17:00 06/17/25 17:30 Pulse Rate 91 H 88 Respiratory Rate 18 21 Blood Pressure 120/64 Pulse Oximetry 95 96 Oxygen Delivery Method 06/17/25 17:30 06/17/25 18:00 06/17/25 18:00 Pulse Rate 78 Respiratory Rate 23 Blood Pressure 111/68 122/69 Pulse Oximetry 98 Oxygen Delivery Method 06/17/25 18:30 06/17/25 18:30 06/17/25 19:00 Pulse Rate 78 82 Respiratory Rate 19 24 Blood Pressure 126/60 Pulse Oximetry 98 98 Oxygen Delivery Method 06/17/25 19:00 06/17/25 19:30 06/17/25 19:30 Pulse Rate 82 Respiratory Rate 20 Blood Pressure 121/59 L 113/64 Pulse Oximetry 93 Oxygen Delivery Method 06/17/25 20:00 06/17/25 20:00 06/17/25 20:30 Pulse Rate 85 Respiratory Rate 18 Blood Pressure 113/66 106/59 L Pulse Oximetry 93 Oxygen Delivery Method 06/17/25 20:30 06/17/25 21:00 06/17/25 21:00 Pulse Rate 86 90 Respiratory Rate 15 15 Blood Pressure 105/63 Pulse Oximetry 91 93 Oxygen Delivery Method Room Air 06/17/25 21:30 06/17/25 21:30 Pulse Rate 84 Respiratory Rate 14 Blood Pressure 106/58 L Pulse Oximetry 94 Oxygen Delivery Method Room Air <Mario Jean-Baptiste, - Last Filed: 06/17/25 22:14> Orders Ordered: ED Orders 06/17/25 14:46 CT abdomen pelvis w con Stat CT angio chest Stat XR chest 1V Stat EKG-12 Lead Stat 06/17/25 14:53 Complete Blood Count AUTO DIFF Stat Comprehensive Metabolic Panel Stat Lactate (Lactic Acid) Stat Lipase Stat Magnesium Stat NT-proBNP (BNP-Adult 18+) Stat PTT Partial Thromboplastin Juan M Stat Prothrombin Time INR Stat Troponin & CK Cardiac Panel Stat 06/17/25 18:30 Blood Culture Stat Discontinued Medications Diphenhydramine HCl (Diphenhydramine 50 Mg/Ml Vial) 50 mg IV NOW ONE Stop: 06/17/25 15:13 Last Admin: 06/17/25 15:15 Dose: 50 mg Documented By: KEANU Hydromorphone HCl (Hydromorphone 1 Mg/Ml Syringe) 1 mg IV NOW ONE Stop: 06/17/25 16:13 Last Admin: 06/17/25 16:22 Dose: 1 mg Documented By: MEGHA Lactated Ringer's (Lactated Ringers) 1,000 mls @ 1,000 mls/hr IV BOLUS ONE Stop: 06/17/25 15:45 Last Infusion: 06/17/25 16:10 Dose: Infused Documented By: RLEmely Admin: 06/17/25 14:53 Dose: 1,000 mls/hr Documented By: MEGHA Ertapenem 1 gm/ Sodium (Chloride) 100 mls @ 200 mls/hr IV NOW ONE Stop: 06/17/25 17:41 Last Infusion: 06/17/25 18:35 Dose: Infused Documented By: Admin: 06/17/25 17:47 Dose: 200 mls/hr Documented By: KEANU Magnesium Sulfate (Magnesium Sulfate) 2 gm in 50 mls @ 150 mls/hr IV NOW ONE Stop: 06/17/25 19:55 Last Infusion: 06/17/25 20:02 Dose: Infused Documented By: MEGHA Co-signed By: Admin: 06/17/25 19:47 Dose: 150 mls/hr Documented By: MEGHA Co-signed By: AXEL Lorazepam (Lorazepam 2 Mg/Ml Inj) 1 mg IV NOW ONE Stop: 06/17/25 19:37 Last Admin: 06/17/25 19:48 Dose: 1 mg Documented By: MEGHA Metoclopramide HCl (Metoclopramide 10 Mg/2 Ml Inj) 10 mg IV NOW ONE Stop: 06/17/25 15:13 Last Admin: 06/17/25 15:15 Dose: 10 mg Documented By: MICHAELF Morphine Sulfate (Morphine 4 Mg/Ml Inj) 4 mg IV NOW ONE Stop: 06/17/25 14:47 Last Admin: 06/17/25 14:53 Dose: 4 mg Documented By: MEGHA Ondansetron HCl (Ondansetron 4 Mg/2 Ml Inj) 4 mg IV NOW ONE Stop: 06/17/25 14:47 Last Admin: 06/17/25 14:53 Dose: 4 mg Documented By: MEGHA Prochlorperazine (Prochlorperazine 10 Mg/2 Ml Vial) 10 mg IV NOW ONE Stop: 06/17/25 16:13 Last Admin: 06/17/25 16:21 Dose: 10 mg Documented By: Emely Vital Signs Vital signs: Vital Signs - 8 hr 06/17/25 14:40 06/17/25 15:03 06/17/25 15:04 Pulse Rate 128 H 99 H 93 H Respiratory Rate 26 H 25 H 24 Blood Pressure 139/70 Pulse Oximetry 94 99 100 Oxygen Delivery Method Room Air 06/17/25 15:04 06/17/25 15:31 06/17/25 15:57 Pulse Rate 83 Respiratory Rate 26 H Blood Pressure 144/92 H 139/69 Pulse Oximetry 100 Oxygen Delivery Method Room Air 06/17/25 15:57 06/17/25 16:00 06/17/25 16:00 Pulse Rate 76 73 Respiratory Rate 24 24 Blood Pressure 141/73 H Pulse Oximetry 99 99 Oxygen Delivery Method 06/17/25 16:21 06/17/25 16:30 06/17/25 16:30 Pulse Rate 87 81 Respiratory Rate 23 Blood Pressure 141/73 H 113/57 L Pulse Oximetry 97 Oxygen Delivery Method 06/17/25 17:00 06/17/25 17:00 06/17/25 17:30 Pulse Rate 91 H 88 Respiratory Rate 18 21 Blood Pressure 120/64 Pulse Oximetry 95 96 Oxygen Delivery Method 06/17/25 17:30 06/17/25 18:00 06/17/25 18:00 Pulse Rate 78 Respiratory Rate 23 Blood Pressure 111/68 122/69 Pulse Oximetry 98 Oxygen Delivery Method 06/17/25 18:30 06/17/25 18:30 06/17/25 19:00 Pulse Rate 78 82 Respiratory Rate 19 24 Blood Pressure 126/60 Pulse Oximetry 98 98 Oxygen Delivery Method 06/17/25 19:00 06/17/25 19:30 06/17/25 19:30 Pulse Rate 82 Respiratory Rate 20 Blood Pressure 121/59 L 113/64 Pulse Oximetry 93 Oxygen Delivery Method 06/17/25 20:00 06/17/25 20:00 06/17/25 20:30 Pulse Rate 85 Respiratory Rate 18 Blood Pressure 113/66 106/59 L Pulse Oximetry 93 Oxygen Delivery Method 06/17/25 20:30 06/17/25 21:00 06/17/25 21:00 Pulse Rate 86 90 Respiratory Rate 15 15 Blood Pressure 105/63 Pulse Oximetry 91 93 Oxygen Delivery Method Room Air 06/17/25 21:30 06/17/25 21:30 Pulse Rate 84 Respiratory Rate 14 Blood Pressure 106/58 L Pulse Oximetry 94 Oxygen Delivery Method Room Air MDM - Abdominal Pain <Madhav C.H. Pratik, DO - Last Filed: 06/17/25 18:02> Lab Data 06/17/25 14:53 06/17/25 14:53 Labs: Lab Results 06/17/25 06/17/25 Range/Units 14:53 17:21 WBC 13.0 H (4.5-11.0) X10^3/uL RBC 4.81 (4.0-5.2) X10^6/uL Hgb 14.5 (12.0-16.0) g/dL Hct 42.0 (36-46) % MCV 87.3 (80-100) fL MCH 30.1 (26-34) PG MCHC 34.4 (30-36) % RDW 14.0 (11.6-14.8) % Plt Count 604 H (150-400) X10^3/uL Neut % (Auto) 70.9 (50-75) % Lymph % (Auto) 23.7 L (25-40) % Boyd % (Auto) 4.4 (3-14) % Eos % (Auto) 0.2 L (2-4) % Baso % (Auto) 0.8 (0-2) % Neut # (Auto) 9200 H (8494-6209) /uL Lymph # (Auto) 3100 (3920-4879) /uL Boyd # (Auto) 600 (0-900) /uL Eos # (Auto) 0 (0-450) /uL Baso # (Auto) 100 (0-100) /uL PT 12.7 H (9.4-12.5) SECONDS INR 1.1 (0.9-1.3) APTT 32 (25.1-36.5) SECONDS Sodium 137 (137-145) mmol/L Potassium 3.7 (3.4-5.1) mmol/L Chloride 107 (98-107) mmol/L Carbon Dioxide 12 L (22-32) mmol/L BUN 17 (7-17) mg/dL Creatinine 0.88 (0.52-1.04) mg/dL Estimated GFR > 60 (>60) mL/min BUN/Creatinine Ratio 19.3 (6-22) Glucose 151 H (70-99) mg/dL Lactate 2.3 H 0.9 (0.7-2.1) mmol/L Calcium 10.3 H (8.4-10.2) mg/dL Magnesium 2.1 (1.6-2.3) mg/dL Total Bilirubin 0.6 (0.2-1.3) mg/dL AST 31 (14-36) IU/L ALT 25 (<35) IU/L Alkaline Phosphatase 140 H (38-126) U/L Total Creatine Kinase 32 (30-135) U/L Troponin I < 0.012 (0.01-0.034) ng/mL NT-Pro-B Natriuret Pep 127 H (<125) pg/mL Total Protein 9.1 H (6.3-8.2) g/dL Albumin 4.9 (3.5-5.0) g/dL Globulin 4.2 H (1.7-4.1) g/dL Albumin/Globulin Ratio 1.2 (1.0-2.8) Lipase 138 (23-300) U/L Imaging Data CT scan - abdomen/pelvis: Radiologist's Impression: [place] [address] CT Scan Report Signed Patient: Jackelyn Arteaga MR#: [id number] : 1975 Acct:[id number] Age/Sex: 50 / F Date of Service: 06/17/25 Loc: ED Accession Number: [id number] Procedure: CT abdomen pelvis w con Ordering Provider: Madhav Christie D.O. PROCEDURE: CT ABDOMEN PELVIS W CON INDICATIONS: recent sarah, SOB severe pain TECHNIQUE: After the administration of intravenous contrast, axial sections acquired from the lung bases to the pubic symphysis. Coronal and sagittal reformats were performed. For radiation dose reduction, the following was used: automated exposure control, adjustment of mA and/or kV according to patient size. COMPARISON: [facility], CT, CT ABDOMEN PELVIS W CON, 06/02/2025, 7:36. FINDINGS: Image quality: Diagnostic. Lower Chest: No significant findings. ABDOMEN: Liver: No solid mass. Gallbladder: Cholecystectomy. Biliary ducts: Mild extrahepatic biliary duct dilation unchanged. Pancreas: No ductal dilation. Spleen: Size is within normal limits. Adrenal Glands: No adrenal nodules. Kidneys and Ureters: No hydronephrosis. No solid mass. No complex renal cystic lesion which requires follow up. Stomach and Bowel: Normal colonic caliber, without focal wall thickening. Diverticulosis. Peritoneum: Heterogenous fluid collection at the inferior margin of the liver at the site of previously removed stones measuring approximately 4.3 x 2.7 x 1.9 cm similar in size to prior examination. Ventral Wall: No significant ventral hernia. Abdominal Nodes: No retroperitoneal or mesenteric adenopathy by size criteria. Vessels: Aorta and inferior vena cava are normal in size. PELVIS: Pelvic Organs: Unremarkable. Bladder: No bladder wall thickening, accounting for underdistention. Pelvic Nodes: No enlarged lymph nodes. Miscellaneous: No inguinal hernias are seen. Bones: No aggressive osseous abnormality. IMPRESSION: Persistent fluid collection in the right upper quadrant along the inferior margin of the liver similar in size to prior. No gallstones visible. CT scan - chest: Radiologist's Impression: [place] [address] CT Scan Report Signed Patient: Jackelyn Arteaga MR#: [id number] : 1975 Acct:[id number] Age/Sex: 50 / F Date of Service: 06/17/25 Loc: ED Accession Number: [id number] Procedure: CT angio chest Ordering Provider: Madhav Christie D.O. PROCEDURE: CT ANGIO CHEST INDICATIONS: recent sarah, SOB severe pain TECHNIQUE: After the administration of intravenous contrast, 2 mm thick sections acquired from the pulmonary apices to the posterior costophrenic angles. 3-dimensional maximum intensity projection (MIP) coronal and sagittal reformats were then acquired through the thorax. For radiation dose reduction, the following was used: automated exposure control, adjustment of mA and/or kV according to patient size. COMPARISON: None. FINDINGS: Image quality: Diagnostic. Pulmonary arteries: Pulmonary arteries are normal in size, and demonstrate no intraluminal filling defects to suggest central pulmonary embolism. Lower Neck: No enlarged lymph nodes. Thyroid: No thyroid nodules which require sonographic follow up, per consensus guidelines. Axillae: No enlarged lymph nodes. Chest Wall: Unremarkable. Bones: Unremarkable. Lungs and Pleura: No pneumothorax or pleural effusions. No consolidation or suspicious nodules. Heart: Heart size is normal. No pericardial effusion. Thoracic Vessels: No aortic aneurysm. Mediastinum and Jackie: No enlarged lymph nodes. Esophagus: No wall thickening. No hiatal hernia. Upper Abdomen: Findings in the upper abdomen reported separately on the concurrently obtained CT abdomen pelvis. IMPRESSION: No pulmonary embolus. No acute cardiopulmonary process. ECG Data Interpretation: Sinus Tach HR 120 NH 144 QRS [address]-t wave change Change from 04/13/25 MDM Narrative Medical decision making narrative: Vital signs, nurse triage note, medication list, previous ER visits, and all imaging studies reviewed. White count of 13 hemoglobin 14.5 lids 604 INR 1.1 sodium 137 potassium 3.7 chloride 107 CO2 12 BUN 17 creatinine 0.88 troponin less than 0.012 BNP 127 lipase 138. Chest x-ray showed no acute cardiopulmonary abnormality. CT angio showed no pulmonary embolus. No acute cardiopulmonary process. CT abdomen and pelvis showed persistent fluid collection in the right upper quadrant along the inferior margin of the liver similar in size to prior. No gallstones visible. Patient given fluids, Dilaudid, Zofran, ertapenem. Case discussed with Dr. Benavidez surgeon on-call who will be coming in to assess patient at bedside. <Mario Jean-Baptiste, DO - Last Filed: 06/17/25 22:14> Lab Data Labs: Lab Results 06/17/25 06/17/25 Range/Units 14:53 17:21 WBC 13.0 H (4.5-11.0) X10^3/uL RBC 4.81 (4.0-5.2) X10^6/uL Hgb 14.5 (12.0-16.0) g/dL Hct 42.0 (36-46) % MCV 87.3 (80-100) fL MCH 30.1 (26-34) PG MCHC 34.4 (30-36) % RDW 14.0 (11.6-14.8) % Plt Count 604 H (150-400) X10^3/uL Neut % (Auto) 70.9 (50-75) % Lymph % (Auto) 23.7 L (25-40) % Boyd % (Auto) 4.4 (3-14) % Eos % (Auto) 0.2 L (2-4) % Baso % (Auto) 0.8 (0-2) % Neut # (Auto) 9200 H (1527-1174) /uL Lymph # (Auto) 3100 (3726-0923) /uL Boyd # (Auto) 600 (0-900) /uL Eos # (Auto) 0 (0-450) /uL Baso # (Auto) 100 (0-100) /uL PT 12.7 H (9.4-12.5) SECONDS INR 1.1 (0.9-1.3) APTT 32 (25.1-36.5) SECONDS Sodium 137 (137-145) mmol/L Potassium 3.7 (3.4-5.1) mmol/L Chloride 107 (98-107) mmol/L Carbon Dioxide 12 L (22-32) mmol/L BUN 17 (7-17) mg/dL Creatinine 0.88 (0.52-1.04) mg/dL Estimated GFR > 60 (>60) mL/min BUN/Creatinine Ratio 19.3 (6-22) Glucose 151 H (70-99) mg/dL Lactate 2.3 H 0.9 (0.7-2.1) mmol/L Calcium 10.3 H (8.4-10.2) mg/dL Magnesium 2.1 (1.6-2.3) mg/dL Total Bilirubin 0.6 (0.2-1.3) mg/dL AST 31 (14-36) IU/L ALT 25 (<35) IU/L Alkaline Phosphatase 140 H (38-126) U/L Total Creatine Kinase 32 (30-135) U/L Troponin I < 0.012 (0.01-0.034) ng/mL NT-Pro-B Natriuret Pep 127 H (<125) pg/mL Total Protein 9.1 H (6.3-8.2) g/dL Albumin 4.9 (3.5-5.0) g/dL Globulin 4.2 H (1.7-4.1) g/dL Albumin/Globulin Ratio 1.2 (1.0-2.8) Lipase 138 (23-300) U/L MDM Narrative Medical decision making narrative: Vital signs, nurse triage note, medication list, previous ER visits, and all imaging studies reviewed. White count of 13 hemoglobin 14.5 lids 604 INR 1.1 sodium 137 potassium 3.7 chloride 107 CO2 12 BUN 17 creatinine 0.88 troponin less than 0.012 BNP 127 lipase 138. Chest x-ray showed no acute cardiopulmonary abnormality. CT angio showed no pulmonary embolus. No acute cardiopulmonary process. CT abdomen and pelvis showed persistent fluid collection in the right upper quadrant along the inferior margin of the liver similar in size to prior. No gallstones visible. Patient given fluids, Dilaudid, Zofran, ertapenem. Case discussed with Dr. Benavidez surgeon on-call who will be coming in to assess patient at bedside. 1800: Received sign-out by Dr. Christie, patient is status post cholecystectomy with drain removal due to postop issues, this was done by our general surgeon here, I had a discussion with general surgeon Dr. Benavidez who evaluated the patient and states that patient will need transfer to higher level care for possible intervention with IR and GI given persistent fluid collection on CT scan and elevated white count. 2019: Had a discussion with interventional radiologist at [facility] Dr. Smith, he states that at this time would not recommend placement of a drain no further intervention in regards to Interventional Radiology, we will reach out to hospitalist and possibly GI at [facility] for transfer given for higher level of care 3: Had a discussion with Dr. Ribeiro general surgeon at [facility], states no need for intervention agrees admission to hospitalist Had a discussion with Dr. Johansen, hospitalist at [facility] accepts the admission/transfer Discharge Plan Departure Patient Disposition: [facility] Clinical Impression: Right upper quadrant abdominal abscess Prescriptions: No Action omeprazole 20 mg capsule,delayed release(DR/EC) 20 mg PO DAILY atorvastatin 20 mg tablet See Rx Instructions .ROUTE .COMPLEX Qty: 90 3RF Dose Instruction: take 1 tablet by mouth once daily Rx Instructions: take 1 tablet by mouth once daily methylphenidate HCl [Ritalin] 10 mg tablet 10 mg PO BID Qty: 60 0RF Patient Comments: PT DOES NOT WANT TO TAKE RIGHT NOW. HAS ONLY TAKEN ONE DOSE sumatriptan succinate 50 mg tablet 50 mg PO Q2-4H PRN (Reason: migraine headache) Qty: 20 0RF metoclopramide HCl 10 mg tablet See Rx Instructions .ROUTE .COMPLEX Qty: 30 3RF Dose Instruction: take 1 tablet by mouth every 6 hours if needed for nausea and vomiting Rx Instructions: take 1 tablet by mouth every 6 hours if needed for nausea and vomiting methocarbamol 500 mg tablet See Rx Instructions .ROUTE .COMPLEX Qty: 60 1RF Dose Instruction: take 1 tablet by mouth four times a day if needed back pain Rx Instructions: take 1 tablet by mouth four times a day if needed back pain gabapentin 300 mg capsule 600 mg PO BEDTIME Qty: 180 3RF fluoxetine 20 mg capsule 60 mg PO DAILY Qty: 270 3RF propranolol 10 mg tablet 10 mg PO BID PRN (Reason: for anxiety) ondansetron 4 mg Tablet,Disintegrating 4 mg sublingual Q4HR PRN (Reason: Nausea) Qty: 60 0RF oxycodone 5 mg Tablet 5 mg PO Q3HR PRN (Reason: Pain, Moderate (4-6)) Qty: 30 0RF Referrals: Susanna Rodarte MD [Primary Care Provider, Family Practice]
[2025-06-17] MEDS: MORPHINE 4 MG/ML INJ IV (14:53)
[2025-06-17] MEDS: ONDANSETRON 4 MG/2 ML INJ IV (14:53)
[2025-06-17] MEDS: LACTATED RINGERS 1,000 ML 1000 ML IV (14:53)
[2025-06-17 15:01] LABS: Add Manual Diff / Slide Review NO; Hematocrit 42.0 % (36-46); Hemoglobin 14.5 g/dL (12.0-16.0); Lymphocytes Absolute Auto 3100 /uL (1100-4500); Mean Corpuscular HGB Conc 34.4 % (30-36); Mean Corpuscular Hemoglobin 30.1 PG (26-34); Mean Corpuscular Volume 87.3 fL (80-100); Platelet Count 604 X10^3/uL (150-400)
[2025-06-17 15:08] LABS: INR 1.1 (0.9-1.3); Prothrombin Time 12.7 SECONDS (9.4-12.5)
[2025-06-17 15:11] LABS: PTT Partial Thromboplastin Tim 32 SECONDS (25.1-36.5)
[2025-06-17 15:12] LABS: Lactate (Lactic Acid) 2.3 mmol/L (0.7-2.1)
[2025-06-17 15:13] LABS: Alanine Aminotransferase 25 IU/L (<35); Albumin 4.9 g/dL (3.5-5.0); Albumin Globulin Ratio 1.2 (1.0-2.8); Alkaline Phosphatase 140 U/L (38-126); Blood Urea Nitrogen 17 mg/dL (7-17); Calcium 10.3 mg/dL (8.4-10.2); Carbon Dioxide 12 mmol/L (22-32); Chloride 107 mmol/L (98-107); Creatine Kinase 32 U/L (30-135); Estimated Glomerular Filt Rate > 60 mL/min (>60); Globulin 4.2 g/dL (1.7-4.1); Glucose 151 mg/dL (70-99); HEMOLYSIS < 15 (0-50); Lipase 138 U/L (23-300); Magnesium 2.1 mg/dL (1.6-2.3); Potassium 3.7 mmol/L (3.4-5.1); Sodium 137 mmol/L (137-145); Total Protein 9.1 g/dL (6.3-8.2)
[2025-06-17] MEDS: METOCLOPRAMIDE 10 MG/2 ML INJ IV (15:15)
[2025-06-17] MEDS: diphenhydrAMINE 50 MG/ML VIAL IV (15:15)
[2025-06-17 15:25] LABS: NT-proBNP (BNP-Adult 18+) 127 pg/mL (<125); Troponin I < 0.012 ng/mL (0.01-0.034)
[2025-06-17] MEDS: PROCHLORPERAZINE 10 MG/2 ML VIAL IV (16:21)
[2025-06-17 16:34] LABS: Reflexed Lactate in 2 Hours Y
[2025-06-17 17:47] LABS: Lactate 2HR (Lactic Acid Rflx) 0.9 mmol/L (0.7-2.1)
[2025-06-17] MEDS: ERTAPENEM 1 GM in SODIUM CHLORIDE 0.9% 100 ML IV (17:47)
--- NOTE | 2025-06-17 18:58 | P.CONS_ITS ---
History of Present Illness
--- NOTE | 2025-06-17 18:58 | PM.CN.IH.1 ---
History of Present Illness Consult details Date Patient Seen: 06/17/25 Time Patient Seen: 18:58 Chief complaint: severe chest pain, n/v Requesting provider: Madhav Christie Narrative: Called to evaluate this arpita 50-year-old female who presents to the emergency room with complaints of epigastric and right upper quadrant pain. The patient reports pain is so severe that it has caused her dyspnea. She notes that today she has had nausea and vomiting and the nausea despite the use of Reglan has returned. The patient's history is significant for a cholecystectomy performed in December of this year. Intraoperative findings were of multiple gallstones with significant acute cholecystitis. Apparently there was some stone spillage. The patient reports that following the cholecystectomy over the intervening months, she felt chronically nauseated with episodic vomiting, fatigue, and elevated temperature. In May of this year, she underwent a laparoscopic procedure to retrieve gallstones from the inferior edge of the liver with surrounding abscess. A drain was placed and removed 2 days later. The patient now presents to the emergency room with the above-mentioned symptoms. She notes she has not felt well for at least 9 months and is chronically nauseated with vomiting. She has never had upper endoscopy. She has had a recent colonoscopy which was unremarkable. The patient notes prior to the initiation of the symptoms earlier in the spring, she had no issues with nausea or vomiting. On presentation to the emergency room, the patient was noted to have leukocytosis with an elevated lactate. Also of note is a platelet count of over 600. Her transaminases and bilirubin are with in reasonable limits. Meds Home Medications and Allergies Home Medications ?Medication ?Instructions ?Recorded ?Confirmed ?Type omeprazole 20 mg capsule,delayed 20 mg PO DAILY 04/04/22 06/03/25 History release sumatriptan succinate 50 mg tablet 50 mg PO Q2-4H PRN migraine 04/16/25 06/03/25 Rx headache #20 tabs metoclopramide HCl 10 mg tablet See Rx Instructions .Route 04/26/25 06/03/25 Rx .COMPLEX #30 tabs gabapentin 300 mg capsule 600 mg (2 x 300 mg) PO BEDTIME 05/03/25 06/03/25 Rx #180 caps methocarbamol 500 mg tablet See Rx Instructions .Route 05/03/25 06/03/25 Rx .COMPLEX #60 tabs atorvastatin 20 mg tablet See Rx Instructions .Route 05/24/25 06/03/25 Rx .COMPLEX #90 tabs methylphenidate HCl 10 mg tablet 10 mg PO BID #60 tabs 05/24/25 06/03/25 Rx (Ritalin) fluoxetine 20 mg capsule 60 mg (3 x 20 mg) PO DAILY #270 05/31/25 06/03/25 Rx caps propranolol 10 mg tablet 10 mg PO BID PRN for anxiety 06/03/25 06/03/25 History ondansetron 4 mg disintegrating 4 mg sublingual Q4HR PRN Nausea 06/08/25 Rx tablet #60 tabs oxycodone 5 mg tablet 5 mg PO Q3HR PRN Pain, Moderate 06/08/25 Rx (4-6) #30 tabs Allergies Allergy/AdvReac Type Severity Reaction Status Date / Time amoxapine (AMOXAPINE) Allergy Intermediate Verified 06/02/25 06:50 penicillin G (PENICILLIN G) Allergy Unknown cillin Verified 06/03/25 15:00 family Review of Systems Review of Systems Narrative: A 12 point review of systems is negative except for that stated above Exam Vital Signs (past 8 hours): - 06/17/25 14:40 06/17/25 15:03 06/17/25 15:04 Pulse Rate 128 H 99 H 93 H Respiratory Rate 26 H 25 H 24 Blood Pressure 139/70 Pulse Oximetry 94 99 100 Oxygen Delivery Method Room Air 06/17/25 15:04 06/17/25 15:31 06/17/25 15:57 Pulse Rate 83 Respiratory Rate 26 H Blood Pressure 144/92 H 139/69 Pulse Oximetry 100 Oxygen Delivery Method Room Air 06/17/25 15:57 06/17/25 16:00 06/17/25 16:00 Pulse Rate 76 73 Respiratory Rate 24 24 Blood Pressure 141/73 H Pulse Oximetry 99 99 Oxygen Delivery Method 06/17/25 16:21 06/17/25 16:30 06/17/25 16:30 Pulse Rate 87 81 Respiratory Rate 23 Blood Pressure 141/73 H 113/57 L Pulse Oximetry 97 Oxygen Delivery Method 06/17/25 17:00 06/17/25 17:00 06/17/25 17:30 Pulse Rate 91 H 88 Respiratory Rate 18 21 Blood Pressure 120/64 Pulse Oximetry 95 96 Oxygen Delivery Method 06/17/25 17:30 06/17/25 18:00 06/17/25 18:00 Pulse Rate 78 Respiratory Rate 23 Blood Pressure 111/68 122/69 Pulse Oximetry 98 Oxygen Delivery Method Oxygen Delivery Method Room Air Narrative Exam Narrative: Atraumatic, normocephalic Afebrile Vital signs stable Alert and oriented x4 Patient appears ill and in distress Pupils equal reactive to light and accommodation; no scleral icterus Trachea midline Respirations clear to auscultation bilaterally; no wheezes, rales, or rhonchi; chest wall excursions symmetrical bilaterally Regular rate and rhythm without murmur Abdomen globally tender with the primary focus in the epigastrium and medial right upper quadrant; no peritoneal signs, guarding, or distention, however tender to palpation in these areas; bowel sounds x4 quadrants Rectal deferred Moves all extremities x4; Objective Imaging CT scan - abdomen: My impression: Films reviewed; please note radiologist read; in agreement CT scan - chest: My impression: Please note radiologist read; agree with above Labs 06/17/25 14:53 06/17/25 14:53 Labs: Laboratory Results - last 24 hr 06/17/25 06/17/25 14:53 17:21 WBC 13.0 H RBC 4.81 Hgb 14.5 Hct 42.0 MCV 87.3 MCH 30.1 MCHC 34.4 RDW 14.0 Plt Count 604 H Neut % (Auto) 70.9 Lymph % (Auto) 23.7 L [place] % (Auto) 4.4 Eos % (Auto) 0.2 L Baso % (Auto) 0.8 Neut # (Auto) 9200 H Lymph # (Auto) 3100 [place] # (Auto) 600 Eos # (Auto) 0 Baso # (Auto) 100 PT 12.7 H INR 1.1 APTT 32 Sodium 137 Potassium 3.7 Chloride 107 Carbon Dioxide 12 L BUN 17 Creatinine 0.88 Estimated GFR > 60 BUN/Creatinine Ratio 19.3 Glucose 151 H Lactate 2.3 H 0.9 Calcium 10.3 H Magnesium 2.1 Total Bilirubin 0.6 AST 31 ALT 25 Alkaline Phosphatase 140 H Total Creatine Kinase 32 Troponin I < 0.012 NT-Pro-B Natriuret Pep 127 H Total Protein 9.1 H Albumin 4.9 Globulin 4.2 H Albumin/Globulin Ratio 1.2 Lipase 138 [facility] Medical History (Updated 06/17/25 @ 18:02 by Madhav Christie DO) Cholelithiasis Anxiety with depression Diverticulosis of large intestine (~04/2017) Irregular menstrual cycle (2008) Ovarian cyst (2006) ADHD (attention deficit hyperactivity disorder) (2008) Generalized headaches Migraines Restless leg syndrome (2013) Chronic back pain Scoliosis Fractures Surgical History (Updated 06/03/25 @ 08:03 by Madhav Durbin MD) Status post cholecystectomy Family History Father No problems noted. Mother No problems noted. Social History household members: spouse and children Tobacco & Substance Use alcohol intake: current Assessment & Plan Assessment & Plan narrative: 50-year-old female status post laparoscopic cholecystectomy in December of this year with follow-up exploratory laparoscopy and drainage of abscess with removal of gallstones; now with intractable epigastric pain, nausea, and vomiting -I am very concerned that this patient appears to have a recurring abscess; ertapenem begun in the ER; the source of the abscess is questionable. Would recommend evaluation with potential IR drainage of abscess and drain placement, imaging of biliary tract with MRCP, and EGD to rule out potential duodenal diverticulum -discussed this with the patient and her [id number]; all questions answered Time-Based Coding :: [TOTAL MINUTES] spent with patient and on the chart (including review of chart, obtaining history, exam, reviewing outside data, placing orders, documenting exam and treatment plan, and counseling patient) on [DATE]. PROFEE Charge Codes Inpatient or Observation consultation: [id number]
[2025-06-17] MEDS: MAGNESIUM SULFATE 2 GM/50 ML PIGGYBACK IV (19:47)
--- NOTE | 2025-06-17 22:32 | PC.NURSE ---
Report called to FABIANA Haddad from Erica Fransk @ [phone] #[id number]
== END 2025-06-17 22:35 | disposition short-term general hospital (02) ==
PROVIDERS: Family Medicine; Emergency Provider Student in an Organized Health Care Education/Training Program; PCP Family Medicine
DX: R10.11 Right upper quadrant pain (principal)
CPT/HCPCS: 36415; 71045; 71275; 74177; 80053; 82550; 83605; 83690; 83735; 83880; 84484; 85025; 85610; 85730; 87040; 93005; 96361; 96365; 96375; 99284; J0780; J1171; J1200; J1335; J2060; J2272; J2405; J2765; J3475; J7050; J7120; Q9967

== ENCOUNTER → 2025-08-11 08:13 | Outpatient (CLI) | payer OTHER, SELFPAY ==
--- NOTE | 2025-08-11 08:14 | DI.MG.S_ITS ---
MM screening mammo BI: 08/11/2025. BI-RADS: 0 CLINICAL: 50-year old female for bilateral screening mammogram. Tyrer-Cuzick lifetime risk of 9.9%. No personal or first-degree family history of breast cancer. PRIOR EXAMS 11/03/2020, 06/23/2019. MAMMOGRAPHY TECHNIQUE: 2D and 3D (tomosynthesis) digital mammographic views obtained, with additional images as needed for full coverage. Current study was also evaluated with a Computer Aided Detection (CAD) system. DENSITY C. The breasts are heterogeneously dense, which may obscure small masses. MAMMOGRAPHY FINDINGS Right: No suspicious mass, asymmetry, microcalcification, or other abnormality seen. Left: Upper Outer Quadrant, Anterior depth: Focal asymmetry needing additional imaging evaluation. IMPRESSION: Right * No evidence of malignancy. Left (Asymmetry): Upper Outer Quadrant, Anterior depth * Incomplete - focal asymmetry needing additional imaging evaluation. RECOMMENDATIONS Left: Upper Outer Quadrant, Anterior depth * Further evaluation with diagnostic mammography and diagnostic ultrasound. Ultrasound to be performed only if needed. OVERALL ASSESSMENT CATEGORY BI-RADS-0: Incomplete - Need Additional Imaging Evaluation. ELECTRONICALLY SIGNED: Evette Zarate M.D. on 08/11/2025 at 04:58:26 PM PT Interpreting Station ID: [id number]
== END ==
LOC: MAMMO 08:14
PROVIDERS: PCP Family Medicine; Referring Provider Family Medicine; Visit Provider Family Medicine
DX: Z12.31 Encounter for screening mammogram for malignant neoplasm of breast (principal); R92.333 Mammographic heterogeneous density, bilateral breasts
CPT/HCPCS: 77063; 77067